=== PATIENT | female | born 1930 | race Caucasian/White ===

== ENCOUNTER 2018-02-19 17:49 | Inpatient (IN) ==
[2018-02-19 19:22] LABS: Basophils % 0.2 %; Eosinophils % 0.1 %; Hematocrit 53.2 % (35.3-44.9); Hemoglobin 17.9 g/dL (11.5-15.4); Immature Granulocytes % 0.6 % (0-4); Lymphocytes # 1.8 K/mcL (0.6-4.6); Lymphocytes % 8.4 %; Mean Corpuscular HGB Conc 33.6 g/dL (31.6-35.5); Mean Corpuscular Volume 89.3 fL (83.0-100.0); Mean Platelet Volume 10.3 fL (9.4-12.4); Monocytes # 2.4 K/mcL (0.0-1.3); Monocytes % 11.2 %; Neutrophils # 17.2 K/mcL (1.6-8.9); Platelet Count 360 K/mcL (140-400); Red Blood Count 5.96 M/mcL (3.82-4.97); Red Cell Distribution Width 13.2 % (11.5-14.5); Segmented Neutrophils % 79.5 %
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
[2018-02-19 19:38] LABS: Albumin/Globulin Ratio 1.3 (1.1-2.2); Bilirubin,Direct 0.4 mg/dL (0.0-0.2); Bilirubin,Indirect 0.6 mg/dL (0.0-1.2); Calcium 9.2 mg/dL (8.6-10.3); Globulin 3.1 g/dL (2.4-3.5); Potassium 3.5 mEq/L (3.5-5.1); Total Protein 7.1 g/dL (6.4-8.9)
[2018-02-19] MEDS ORDERED: Isovue-370 500 ML INFUS..BTL IV ONE (19:45)
[2018-02-19 20:11] LABS: Bilirubin,Urine Small (Negative); Blood,Urine Trace (Negative); Clarity,Urine Turbid (Clear); Color,Urine Dark Yellow (Yellow); Glucose,Urine (UA) Normal (Normal); Ketones,Urine Trace mg/dL (Negative); Leukocyte Esterase,Urine Large (Negative); Nitrite,Urine Negative (Negative); Protein,Urine 30 mg/dL (Neg-Trace); Specific Gravity,Urine 1.024 (1.010-1.025); Urobilinogen,Urine Normal (Normal)
[2018-02-19] MEDS ORDERED: 0.9 % Sodium Chloride 500 ML IVC ONE (20:19)
[2018-02-19] MEDS ORDERED: cefTRIAXone 1,000 MG in Water for inj. (sterile) 20 ML 10 ML IVP ONE (20:23)
--- NOTE | 2018-02-19 20:26 | Emergency Department Note ---
Disposition Clinical Impression: Large bowel obstruction, Small bowel obstruction, Colonic mass, UTI (urinary tract infection) Disposition: Admitted As Inpatient Condition: Good General Adult HPI - General Chief complaint: ED Abdominal Pain Stated complaint: "bladder infection" Time Seen by Provider: 02/19/18 18:48 Source: patient, family Limitations: altered mental status - History of Present Illness Pain Scale: 0 - Related Data Home Medications Medication Instructions Recorded Confirmed Alendronate Sodium 70 mg PO QWEEK 07/31/15 02/19/18 Amlodipine [Norvasc] 10 mg PO DAILY 07/31/15 02/19/18 Citalopram Hydrobromide [Celexa] 10 mg PO DAILY #0 07/31/15 02/19/18 Digoxin [Lanoxin] 0.125 mg PO DAILY 07/31/15 02/19/18 Losartan [Cozaar] 50 mg PO DAILY 07/31/15 02/19/18 Multivitamin [Multi-Day Vitamins] 1 tab PO DAILY 07/31/15 02/19/18 Simvastatin [Zocor] 40 mg PO HS 07/31/15 02/19/18 Aspirin 81 mg PO DAILY 02/19/18 02/19/18 Cholecalciferol (D-3) [Vitamin D] 5,000 unit PO DAILY 02/19/18 02/19/18 Donepezil [Aricept] 5 mg PO HS 02/19/18 02/19/18 Metoprolol XL (24 HR) Succ [Toprol 150 mg PO DAILY 02/19/18 02/19/18 XL] Previous Rx's Medication Instructions Recorded Warfarin [Coumadin] 2 mg PO 1800 #60 tablet 08/05/15 Allergies Allergy/AdvReac Type Severity Reaction Status Date / Time Warfarin [From Coumadin] Allergy See Verified 07/31/15 03:46 Comments Past Medical History - Past Medical History Medical history: Reports: coronary artery disease, CVA, myocardial infarction, TIA, other Surgical history: Reports: heart valve replacement, other Psychiatric history: Reports: no psych history POOL NURSE history: Reports: no POOL NURSE history - Social History Smoking Status: Never smoker Smokeless Tobacco Status: No Alcohol use: Reports: none Drug use: Reports: none Physical Exam - General Limitations: altered mental status General appearance: alert, in no apparent distress Course Vital Signs Temperature 97.8 F 02/19/18 17:54 Pulse Rate 73 04/26/18 17:54 Respiratory Rate 15 02/19/18 17:54 Blood Pressure 167/111 02/19/18 17:54 O2 Sat by Pulse Oximetry 96 02/19/18 17:54 Temperature 97.8 F 02/19/18 17:54 Pulse Rate 81 02/19/18 21:29 Respiratory Rate 18 02/19/18 21:29 Blood Pressure 159/90 02/19/18 21:29 O2 Sat by Pulse Oximetry 97 02/19/18 21:29 Oxygen Delivery Oxygen Delivery Nasal Cannula Medical Decision Making - Lab Data Result diagrams: 02/19/18 19:08 02/19/18 19:08 Lab Results 02/19/18 02/19/18 02/19/18 Range/Units 19:08 19:08 19:08 WBC 21.7 H (4.3-11.1) K/mcL RBC 5.96 H (3.82-4.97) M/mcL Hgb 17.9 H (11.5-15.4) g/dL Hct 53.2 H (35.3-44.9) % MCV 89.3 (83.0-100.0) fL MCH 30.0 (28.0-33.3) pg MCHC 33.6 (31.6-35.5) g/dL RDW 13.2 (11.5-14.5) % Plt Count 360 (140-400) K/mcL MPV 10.3 (9.4-12.4) fL Immature Gran % 0.6 (0-4) % Seg Neutrophils % 79.5 % Lymphocytes % 8.4 % Monocytes % 11.2 % Eosinophils % 0.1 % Basophils % 0.2 % Neutrophils # 17.2 H (1.6-8.9) K/mcL Lymphocytes # 1.8 (0.6-4.6) K/mcL Monocytes # 2.4 H (0.0-1.3) K/mcL Eosinophils # 0.0 (0.0-0.6) K/mcL Basophils # 0.0 (0.0-0.2) K/mcL PT (9.4-12.1) Seconds INR APTT (26.0-36.0) Seconds Sodium 136 (136-145) mEq/L Potassium 3.5 (3.5-5.1) mEq/L Chloride 99 (98-107) mEq/L Carbon Dioxide 25 (23-29) mEq/L BUN 43 H (8-23) mg/dL Creatinine 1.15 (0.60-1.20) mg/dL Est GFR ( Amer) 54 L (> 60) Est GFR (Non-Af Amer) 45 L (> 60) BUN/Creatinine Ratio 37 H (6-26) Glucose 210 H (70-105) mg/dL Calculated Osmolality 299 (280-300) Lactic Acid 2.3 H (0.5-2.2) mmol/L Calcium 9.2 (8.6-10.3) mg/dL Total Bilirubin 1.0 (0.3-1.0) mg/dL Direct Bilirubin 0.4 H (0.0-0.2) mg/dL Indirect Bilirubin 0.6 (0.0-1.2) mg/dL AST 54 H (13-39) Units/L ALT 35 (7-52) Units/L Alkaline Phosphatase 186 H (34-104) Units/L Serum Total Protein 7.1 (6.4-8.9) g/dL Albumin 4.0 (3.5-5.7) g/dL Globulin 3.1 (2.4-3.5) g/dL Albumin/Globulin Ratio 1.3 (1.1-2.2) Lipase 10 L (11-82) Units/L Urine Color (Yellow) Urine Clarity (Clear) Urine pH (5.0-8.0) pH Units Ur Specific [place] (1.010-1.025) Urine Protein (Neg-Trace) mg/dL Urine Glucose (UA) (Normal) mg/dL Urine Ketones (Negative) mg/dL Urine Blood (Negative) Urine Nitrite (Negative) Urine Bilirubin (Negative) Urine Urobilinogen (Normal) mg/dL Ur Leukocyte Esterase (Negative) Urine Microscopic RBC (0-3) per hpf Urine Microscopic WBC (0-3) per hpf Ur Squamous Epith Cells (None-Few) per lpf Amorphous Sediment (Few) Urine Bacteria (None-Few) per hpf Hyaline Casts (None-Few) per lpf Urine Yeast (None Seen) per hpf Ur Culture Indicated? (NO) 02/19/18 02/19/18 02/19/18 Range/Units 19:08 19:55 22:52 WBC (4.3-11.1) K/mcL RBC (3.82-4.97) M/mcL Hgb (11.5-15.4) g/dL Hct (35.3-44.9) % MCV (83.0-100.0) fL MCH (28.0-33.3) pg MCHC (31.6-35.5) g/dL RDW (11.5-14.5) % Plt Count (140-400) K/mcL MPV (9.4-12.4) fL Immature Gran % (0-4) % Seg Neutrophils % % Lymphocytes % % Monocytes % % Eosinophils % % Basophils % % Neutrophils # (1.6-8.9) K/mcL Lymphocytes # (0.6-4.6) K/mcL Monocytes # (0.0-1.3) K/mcL Eosinophils # (0.0-0.6) K/mcL Basophils # (0.0-0.2) K/mcL PT 50.3 H* (9.4-12.1) Seconds INR 4.5 H* APTT 50.6 H (26.0-36.0) Seconds Sodium (136-145) mEq/L Potassium (3.5-5.1) mEq/L Chloride (98-107) mEq/L Carbon Dioxide (23-29) mEq/L BUN (8-23) mg/dL Creatinine (0.60-1.20) mg/dL Est GFR ( Amer) (> 60) Est GFR (Non-Af Amer) (> 60) BUN/Creatinine Ratio (6-26) Glucose (70-105) mg/dL Calculated Osmolality (280-300) Lactic Acid 1.3 (0.5-2.2) mmol/L Calcium (8.6-10.3) mg/dL Total Bilirubin (0.3-1.0) mg/dL Direct Bilirubin (0.0-0.2) mg/dL Indirect Bilirubin (0.0-1.2) mg/dL AST (13-39) Units/L ALT (7-52) Units/L Alkaline Phosphatase (34-104) Units/L Serum Total Protein (6.4-8.9) g/dL Albumin (3.5-5.7) g/dL Globulin (2.4-3.5) g/dL Albumin/Globulin Ratio (1.1-2.2) Lipase (11-82) Units/L Urine Color Dark Yellow (Yellow) Urine Clarity Turbid A (Clear) Urine pH 5.0 (5.0-8.0) pH Units Ur Specific [place] 1.024 (1.010-1.025) Urine Protein 30 H (Neg-Trace) mg/dL Urine Glucose (UA) Normal (Normal) mg/dL Urine Ketones Trace H (Negative) mg/dL Urine Blood Trace H (Negative) Urine Nitrite Negative (Negative) Urine Bilirubin Small H (Negative) Urine Urobilinogen Normal (Normal) mg/dL Ur Leukocyte Esterase Large H (Negative) Urine Microscopic RBC Present (0-3) per hpf Urine Microscopic WBC Present (0-3) per hpf Ur Squamous Epith Cells Present (None-Few) per lpf Amorphous Sediment Present (Few) Urine Bacteria Present (None-Few) per hpf Hyaline Casts None Seen (None-Few) per lpf Urine Yeast Many H (None Seen) per hpf Ur Culture Indicated? YES A (NO) Attestation Statement - Attestation Attestation: I examined this patient and my medical decision-making was reviewed with the Resident Physician. I agree with the documented findings, disposition and treatment plan as described except to the extent set forth below. 87-year-old female since emergency department by her primary care physician because of abdominal distention. She was seen in the office yesterday and found to have a UTI and started on antibiotics. She returned today because of abdominal distention and was immediately sent to the ED for evaluation. Patient has advanced dementia with limited to medication. She denies any active subjective complaints but according to her she appears uncomfortable. His been noted vomiting. No dysuria. No fever. No cough or dyspnea Pleasant, elderly female. Answers yes no questions but inconsistently. He is membranes are dry. Neck supple. Chest clear to auscultation bilaterally. Cardiac exam regular, abdomen is distended. Bowel sounds are hypoactive. Abdomen appears to be diffusely tender. No CVA tenderness. Bedside ultrasound was done to make sure she did not have acute urinary retention and her bladder was relatively small in size. Some fluid-filled structures were noted on ultrasound Labs obtained and was found to have a white count 22,000 and urinalysis consistent with UTI. CT abdomen reveals large and small bowel obstruction likely secondary to a large colonic mass. Case discussed with Dr. Mendieta he will see her for surgical consultation and she is admitted to the medical service.
[2018-02-19 20:35] LABS: RBC,Urine Present per hpf (0-3)
[2018-02-19 20:36] LABS: Bacteria,Urine Present per hpf (None-Few); Hyaline Casts,Urine None Seen per lpf (None-Few); Squamous Epithelial Cell,Urine Present per lpf (None-Few); Yeast,Urine Many per hpf (None Seen)
[2018-02-19 20:37] LABS: WBC,Urine Present per hpf (0-3)
[2018-02-19 20:38] LABS: Amorphous Sediment,Urine Present (Few)
[2018-02-19] MEDS: 0.9 % Sodium Chloride 1,000 ML IVC SCH (20:49)
[2018-02-19] MEDS ORDERED: Ondansetron 4 MG/2 ML VIAL IVP ONE (21:36)
[2018-02-19 22:24] LABS: INR 4.5; Prothrombin Time 50.3 Seconds (9.4-12.1)
[2018-02-19 22:25] LABS: Activated Partial Thrombo Time 50.6 Seconds (26.0-36.0)
[2018-02-20] MEDS ORDERED: Naloxone 0.4 MG/ML INJ IVP PRN (01:18)
[2018-02-20] MEDS: Piperacillin/Tazobactam 3.375 GM in 0.9 % Sodium Chloride Mini Bag 100 ML IVPB SCH ×3 (01:33→19:31)
--- NOTE | 2018-02-20 01:59 | Internal Med History&Physical ---
Date of Encounter: 02/20/18 Time of Encounter: 01:00 Internal Medicine - H&P: HPI Chief complaint: Abdominal pain Admitted From: Home Plans for Post Hospital Care: Home History of present illness: Ms. Galeana is a 87 year old female present to ER for abdominal pain and distention. Past medical history is significant for A. fib, history of CVA with aphasia, history of mitral vital replacement with bio valve, hypertension. Patient is aphasia and no family member at bedside when I saw her. History is obtained from previous medical records and ER documentation. Patient has increased distention of the belly in last 2 days and was referred from PCP to the emergency room. In the emergency room, CT abdomen shows colon mass with obstruction. Surgical consult was called and recommend admission and antibiotic treatment as patient has leukocytosis. Patient denies fever. Cannot discuss CODE STATUS with this patient because she is aphasia. Will leave CODE STATUS unfilled until family member is available. Past Med Surg Social Fam HX - Past Medical History Medical history: coronary artery disease, CVA, myocardial infarction, TIA, other Psychiatric history: no psych history - Past Surgical History Surgical History: heart valve replacement, other - Social History Smoking Status: Never smoker Smokeless Tobacco Status: No Alcohol use: none Drug use: none - Family History Mother History Unknown: Yes Internal Medicine - H&P: Meds Alendronate Sodium 70 mg PO QWEEK 07/31/15 [History] Amlodipine [Norvasc] 10 mg PO DAILY 07/31/15 [History] Citalopram Hydrobromide [Celexa] 10 mg PO DAILY #0 07/31/15 [History] Digoxin [Lanoxin] 0.125 mg PO DAILY 07/31/15 [History] Losartan [Cozaar] 50 mg PO DAILY 07/31/15 [History] Multivitamin [Multi-Day Vitamins] 1 tab PO DAILY 07/31/15 [History] Simvastatin [Zocor] 40 mg PO HS 07/31/15 [History] Warfarin [Coumadin] 2 mg PO 1800 #60 tablet 08/05/15 [Rx] Aspirin 81 mg PO DAILY 02/19/18 [History] Cholecalciferol (D-3) [Vitamin D] 5,000 unit PO DAILY 02/19/18 [History] Donepezil [Aricept] 5 mg PO HS 04/26/18 [History] Metoprolol XL (24 HR) Succ [Toprol XL] 150 mg PO DAILY 02/19/18 [History] 3 Allergy/AdvReac Type Severity Reaction Status Date / Time Warfarin [From Coumadin] Allergy See Verified 07/31/15 03:46 Comments All Systems PM: A 10-system review of systems was performed and is negative for pertinent findings except as documented above in the HPI. - Constitutional Vitals: Temp Pulse Resp BP Pulse Ox 97.8 F 81 18 159/90 97 02/19/18 17:54 02/19/18 21:29 02/19/18 21:29 02/19/18 21:29 02/19/18 21:29 General appearance: Present: A&O X 3, no acute distress - Head Head exam: Present: atraumatic, normocephalic - Eye Eye exam: Present: PERRL, conjuntiva pink, sclera anicteric Pupils: Present: PERRL - Neck Neck exam general surgery: Present: supple, trachea midline. Absent: lymphadenopathy - Respiratory Respiratory exam: Present: CTAB. Absent: accessory muscle use, rales, rhonchi, wheezes - Cardiovascular Cardiovascular exam: Present: irregular rhythm, +S1, +S2. Absent: diastolic murmur, gallop, rubs, systolic murmur - GI/Abdominal GI/Abdominal exam: Present: distended, normal bowel sounds, soft, tenderness ( Mild to moderate tenderness in 4Q, no guarding or rebound), no peritoneal signs - Extremities Exam Extremities exam: Present: warm, radial pulses palpable and symmetrical. Absent : calf tenderness, cyanotic, pedal edema - Neurological Exam Neurological exam: Present: CN II-XII intact, oriented X3, no focal deficits. Absent: pronater drift, facial droop, speech deficit - Skin Skin exam: Present: dry, intact Internal Med - H&P Results - Labs CBC & Chem 7: 02/19/18 19:08 02/19/18 19:08 - Assessment and plan (1) Hypertension Current Visit: No Status: Acute Assessment and plan: Patient is nothing by mouth at this point. Will hold home hypertensive medication. Hydralazine IV as needed Qualifiers: Hypertension type: essential hypertension Qualified Code(s): I10 - Essential (primary) hypertension (2) DVT prophylaxis Current Visit: No Status: Acute Assessment and plan: Patient is on Coumadin at home. INR is supratherapeutic, no further anticoagulation placed. Closely follow-up PT/INR (3) Atrial fibrillation Current Visit: No Status: Acute Assessment and plan: Patient has A. fib. Heart rate is well controlled. Place patient on metoprolol IV as needed for tachycardia. Patient is on Coumadin, on hold the now because INR is supratherapeutic. Closely monitor INR level Qualifiers: Atrial fibrillation type: chronic Qualified Code(s): I48.2 - Chronic atrial fibrillation (4) CVA (cerebral vascular accident) Current Visit: No Status: Acute Assessment and plan: History of CVA with residual aphasia. Qualifiers: CVA mechanism: embolism Precerebral and cerebral artery: unspecified precerebral artery Qualified Code(s): I63.10 - Cerebral infarction due to embolism of unspecified precerebral artery (5) History of mitral valve replacement with bioprosthetic valve Current Visit: No Status: Acute Assessment and plan: Continue closely monitor patient (6) Large bowel obstruction Current Visit: Yes Status: Acute Assessment and plan: May due to colon cancer. - Keep patient nothing by mouth, IV fluid - NG tube with intermittent low pressure suction - Surgical consult was informed by ER doctor (7) Colonic mass Current Visit: Yes Status: Acute Assessment and plan: With obstruction at this point. May need further workup after acute obstruction resolved. (8) UTI (urinary tract infection) Current Visit: Yes Status: Acute Assessment and plan: Patient is on Zosyn. Follow-up urine culture. Qualifiers: Urinary tract infection type: site unspecified Hematuria presence: without hematuria Qualified Code(s): N39.0 - Urinary tract infection, site not specified - Time Spent With Patient Total time spent is greater than 50% in coordination of care (as documented) at patient's floor/unit and/or counseling patient: 40 minutes Greater than 35 minutes
[2018-02-20 05:17] LABS: Basophils % 0.2 %; Eosinophils % 0.1 %; Immature Granulocytes % 0.3 % (0-4); Lymphocytes # 1.8 K/mcL (0.6-4.6); Lymphocytes % 10.3 %; Mean Corpuscular HGB Conc 33.3 g/dL (31.6-35.5); Mean Corpuscular Hemoglobin 29.8 pg (28.0-33.3); Mean Corpuscular Volume 89.3 fL (83.0-100.0); Mean Platelet Volume 10.9 fL (9.4-12.4); Monocytes # 2.2 K/mcL (0.0-1.3); Monocytes % 12.5 %; Neutrophils # 13.4 K/mcL (1.6-8.9); Platelet Count 330 K/mcL (140-400); Red Blood Count 5.71 M/mcL (3.82-4.97); Red Cell Distribution Width 13.2 % (11.5-14.5); Segmented Neutrophils % 76.6 %
[2018-02-20 05:32] LABS: BUN/Creatinine Ratio 47 (6-26); Blood Urea Nitrogen 42 mg/dL (8-23); Calcium 8.5 mg/dL (8.6-10.3); Carbon Dioxide 25 mEq/L (23-29); Chloride 101 mEq/L (98-107); Glucose 152 mg/dL (70-105); Magnesium 1.9 mg/dL (1.6-2.6); Osmolality,Calculated 301 (280-300); Potassium 3.3 mEq/L (3.5-5.1); Sodium 139 mEq/L (136-145); eGFR For African Americans > 60 (> 60); eGFR For Non-African Americans > 60 (> 60)
[2018-02-20 05:40] LABS: INR 5.1; Prothrombin Time 56.7 Seconds (9.4-12.1)
[2018-02-20] MEDS ORDERED: Potassium Chloride 20 MEQ, Lidocaine 1% 2 ML in D5% in Water 250 ML IVPB ONE (09:31)
--- NOTE | 2018-02-20 12:43 | Event Note ---
Date of Encounter: 02/20/18 Time of Encounter: 11:35 General Surgery - Presented to bedside to examine patient and discuss surgical options. The patient is frail, with history of atrial fib fibrillation for which she is chronically anticoagulated, status post a stroke with severe aphasia; history of mitral valve replacement with a bilateral valve and hypertension. Unfortunately, Her had left the hospital and was unavailable during my encounter with the patient. I have briefly discussed the patient' situation with Dr Ontiveros. The patient is an extremely poor surgical candidate and her present level of anticoagulation preclude surgical intervention at this time. Current PT 56.7, INR 5.1. I have recommended administration 2 units fresh frozen plasma with or without vitamin K to reduce the risk of spontaneous bleed as well as begin preparation for surgical intervention should the patient and her wish to proceed. I will follow along with you and make further recommendations
[2018-02-20] MEDS ORDERED: 0.9 % Sodium Chloride 250 ML ONE ×2 (14:09→20:12)
[2018-02-20] MEDS: 0.9 % Sodium Chloride 1,000 ML IVC SCH ×2 (19:26→19:32)
--- NOTE | 2018-02-20 22:39 | Event Note ---
Date of Encounter: 02/20/18 Time of Encounter: 15:37 S: Patient had no acute events overnight. She is minimally verbal, and only says "yes or no." Unable to get much history from her. is in room today. We discussed case and prognosis. We also discussed code status at length given her critical condition and likely poor prognosis. He wants her to be full code. Patient does not look to be in any pain. She is in restraints right now due to trying to pull out NG tube earlier. We will try again to remove them and see how she does. I spoke with surgeon Dr. Bethea in person today, and he recommended continuing NG tube (if patient pulls out, no need to insert another one as blockage is in distal colon). He also recommended reversing INR with FFP. Patient is a poor surgical candidate. He will try to speak with today. O: Gen - Awake, alert, unable to assess orientation due to non-verbal state, no acute distress HEENT - NCAT, PERRLA, EOMI, hearing grossly intact, oropharynx benign, NG tube in place CV - RRR, normal S1 and S2, no M/R/G, no BLE edema Resp - Normal WOB, CTAB, no W/R/R GI - Soft, mild generalized abdominal distension and TTP, no masses, hypoactive bowel sounds, no HSP Skin - Warm, dry, no rashes/lesions/ulcers Psych - Normal mood and affect, no depression or anxiety A/P: 1) Large Bowel Obstruction - Surgery consulted; appreciate input. Continue NG tube with suction. Will use restraints only as last resort; if she pulls NG tube, no need to insert new one. Surgery will speak with about options. Discussed code status with , who wants full code for now. Continue NPO, IV zosyn, and IVF. Hold coumadin and give 2 units FFP to reverse INR in preparation for possible surgery. Repeat labwork in AM. 2) UTI - Continue IV zosyn. Follow up on urine culture. 3) Hypokalemia - Replete potassium. Recheck BMP in AM.
[2018-02-21] MEDS: Piperacillin/Tazobactam 3.375 GM in 0.9 % Sodium Chloride Mini Bag 100 ML IVPB SCH ×4 (01:17→18:22)
[2018-02-21] MEDS: 0.9 % Sodium Chloride 1,000 ML IVC SCH ×3 (01:18→23:00)
[2018-02-21 03:52] LABS: Basophils % 0.2 %; Eosinophils # 0.1 K/mcL (0.0-0.6); Eosinophils % 0.6 %; Hematocrit 45.9 % (35.3-44.9); Immature Granulocytes % 0.5 % (0-4); Lymphocytes # 1.8 K/mcL (0.6-4.6); Lymphocytes % 15.6 %; Mean Corpuscular HGB Conc 33.3 g/dL (31.6-35.5); Mean Platelet Volume 10.6 fL (9.4-12.4); Monocytes # 1.6 K/mcL (0.0-1.3); Monocytes % 13.9 %; Neutrophils # 8.1 K/mcL (1.6-8.9); Platelet Count 323 K/mcL (140-400); Red Cell Distribution Width 13.1 % (11.5-14.5); Segmented Neutrophils % 69.2 %
[2018-02-21 03:55] LABS: INR 3.6; Prothrombin Time 39.3 Seconds (9.4-12.1)
[2018-02-21 04:03] LABS: Hemoglobin 15.3 g/dL (11.5-15.4)
[2018-02-21 04:09] LABS: BUN/Creatinine Ratio 50 (6-26); Blood Urea Nitrogen 35 mg/dL (8-23); Calcium 8.4 mg/dL (8.6-10.3); Carbon Dioxide 31 mEq/L (23-29); Chloride 102 mEq/L (98-107); Glucose 144 mg/dL (70-105); Osmolality,Calculated 305 (280-300); Potassium 3.1 mEq/L (3.5-5.1); Sodium 142 mEq/L (136-145); eGFR For African Americans > 60 (> 60); eGFR For Non-African Americans > 60 (> 60)
[2018-02-21] MEDS ORDERED: Potassium Chloride 40 MEQ, Lidocaine 1% 2 ML in D5% in Water 500 ML IVPB ONE (06:03)
--- NOTE | 2018-02-21 12:19 | Internal Med Progress Note ---
Date of Encounter: 02/21/18 Time of Encounter: 12:16 - Assessment and plan (1) Large bowel obstruction Current Visit: Yes Status: Acute Assessment and plan: Likely due to colon cancer. Surgery consulted; appreciate input. Son and plan to be in tomorrow AM for family meeting with surgeon. Continue NPO and IVF. Patient pulled NG tube; per surgeon, no need to insert new one. (2) Colonic mass Current Visit: Yes Status: Acute Assessment and plan: With obstruction as per above. May need further workup after acute obstruction resolved. (3) UTI (urinary tract infection) Current Visit: Yes Status: Acute Assessment and plan: Continue IV Zosyn. Follow-up on final urine culture. Qualifiers: Urinary tract infection type: site unspecified Hematuria presence: without hematuria Qualified Code(s): N39.0 - Urinary tract infection, site not specified (4) Hypertension Current Visit: Yes Status: Chronic Assessment and plan: Patient is nothing by mouth at this point. Will hold home hypertensive medication. Continue hydralazine IV PRN. Qualifiers: Hypertension type: essential hypertension Qualified Code(s): I10 - Essential (primary) hypertension (5) Atrial fibrillation Current Visit: Yes Status: Chronic Assessment and plan: History of AFib. Heart rate is well-controlled at this time. Continue metoprolol IV as needed for tachycardia. Patient is on Coumadin, on hold the now because INR is supratherapeutic and possible plan for surgery. Recheck PT/ PTT/INR in AM. Qualifiers: Atrial fibrillation type: chronic Qualified Code(s): I48.2 - Chronic atrial fibrillation (6) CVA (cerebral vascular accident) Current Visit: No Status: Chronic Assessment and plan: History of CVA with residual aphasia. Qualifiers: CVA mechanism: embolism Precerebral and cerebral artery: unspecified precerebral artery Qualified Code(s): I63.10 - Cerebral infarction due to embolism of unspecified precerebral artery (7) History of mitral valve replacement with bioprosthetic valve Current Visit: Yes Status: Chronic Assessment and plan: Continue to monitor. (8) Hypokalemia Current Visit: Yes Status: Acute Assessment and plan: Replete potassium. Recheck BMP in AM. (9) DVT prophylaxis Current Visit: Yes Status: Acute Assessment and plan: Patient is on Coumadin at home. INR is supratherapeutic, will hold coumadin. Given 2 units FFP yesterday. INR down today. Consulted with surgeon Dr. Mendieta, who states will hold further FFP for now until family makes decision on surgery tomorrow. Obtain PT/PTT/INR in AM. - Time Spent With Patient Total time spent is greater than 50% in coordination of care (as documented) at patient's floor/unit and/or counseling patient: - Subjective Interval history: Patient had no acute events overnight. She states that she is doing fine. She does not appear to be in any distress. She is minimally verbal. is in room today and we discussed family meeting tomorrow AM with the surgeon. I spoke with son on phone this AM. He is flying in from [place] today. He will be at meeting tomorrow AM with surgeon. He also asked that all decisions be run through him and his brother prior to "stressing out their father." I spoke with surgeon Dr. Mendieta this AM, and he suggested leaving NG tube out after she pulled it out yesterday. Prognosis is poor. - Constitutional Vitals: Temp Pulse Resp BP Pulse Ox 98.3 F 87 15 163/80 92 02/21/18 11:41 02/21/18 11:41 02/21/18 11:41 02/21/18 11:41 02/21/18 11:41 General appearance: Present: cooperative, pleasant, no acute distress Exam: Minimally verbal - Respiratory Respiratory exam: Present: CTAB. Absent: accessory muscle use, rales, rhonchi, wheezes Additional comments: Normal WOB - Cardiovascular Cardiovascular exam: Present: RRR, +S1, +S2. Absent: diastolic murmur, gallop, rubs, systolic murmur Additional comments: No BLE edema - GI/Abdominal GI/Abdominal exam: Present: soft. Absent: distended, hepatomegaly, mass, splenomegaly, tenderness Additional comments: Hypoactive bowel sounds - Psychiatric Psychiatric exam: Present: normal affect, normal mood. Absent: agitated, anxious, depressed - Skin Skin exam: Present: dry, intact, warm. Absent: cyanosis, rash Internal Medicine: Result - Labs CBC & Chem 7: 02/21/18 03:19 02/21/18 03:19 Labs: Short CBC 02/21/18 Range/Units 03:19 WBC 11.6 H (4.3-11.1) K/mcL Hgb 15.3 D (11.5-15.4) g/dL Hct 45.9 H (35.3-44.9) % Plt Count 323 (140-400) K/mcL Neutrophils # 8.1 (1.6-8.9) K/mcL BMP 02/21/18 03:19 Sodium 142 Potassium 3.1 L Chloride 102 Carbon Dioxide 31 H BUN 35 H Creatinine 0.70 Glucose 144 H Calcium 8.4 L - ABG Interpretation ABG results: PT/INR, D-dimer PT 39.3 Seconds (9.4-12.1) H 02/21/18 03:19 - Impressions Impressions [facility] X-Ray 02/20/18 08:56 IMPRESSION: Tip of the nasogastric tube is within the stomach with the side port projecting over the gastroesophageal junction. Consider advancement. D/ / 02/20/2018 09:30:56 Jeronimo Lakhani MD / [facility] Interpreting Provider: Jeronimo Lakhani MD X-Ray 02/20/18 13:03 IMPRESSION: Enteric tube does not appear appreciably changed in position from exam earlier today with side port still projecting at the level of the gastroesophageal junction and tip likely in the proximal body of the stomach. Suggest advancement by 5 cm. D/ / 02/20/2018 13:40:08 Lavell Friedman MD / [facility] Interpreting Provider: Lavell Friedman MD - [facility] Reasons for not Prescribing Prophylaxis: Medical contraindication ( Supratherapeutic INR; plan for surgery) Consult Discharge Plan - Plan Referrals: Juan Fernandez MD [Primary Care Provider] -
[2018-02-21] MEDS: *HR* Metoprolol 5 MG/5 ML VIAL IVP PRN ×2 (14:51→21:41)
[2018-02-21] MEDS: *HR* FentaNYL (PF) 100 MCG/2 ML VIAL IVP PRN ×2 (18:18→23:19)
[2018-02-22] MEDS: Piperacillin/Tazobactam 3.375 GM in 0.9 % Sodium Chloride Mini Bag 100 ML IVPB SCH ×3 (03:03→20:49)
[2018-02-22 03:39] LABS: Basophils % 0.3 %; Eosinophils # 0.1 K/mcL (0.0-0.6); Eosinophils % 0.6 %; Hematocrit 46.7 % (35.3-44.9); Immature Granulocytes % 0.8 % (0-4); Lymphocytes # 1.9 K/mcL (0.6-4.6); Lymphocytes % 15.9 %; Mean Corpuscular HGB Conc 32.1 g/dL (31.6-35.5); Mean Corpuscular Hemoglobin 29.4 pg (28.0-33.3); Mean Corpuscular Volume 91.6 fL (83.0-100.0); Mean Platelet Volume 10.2 fL (9.4-12.4); Monocytes # 1.5 K/mcL (0.0-1.3); Monocytes % 12.4 %; Neutrophils # 8.6 K/mcL (1.6-8.9); Platelet Count 321 K/mcL (140-400); Red Cell Distribution Width 13.2 % (11.5-14.5)
[2018-02-22 03:44] LABS: INR 3.3; Prothrombin Time 36.6 Seconds (9.4-12.1)
[2018-02-22 04:26] LABS: BUN/Creatinine Ratio 39 (6-26); Blood Urea Nitrogen 23 mg/dL (8-23); Calcium 8.5 mg/dL (8.6-10.3); Carbon Dioxide 30 mEq/L (23-29); Chloride 109 mEq/L (98-107); Glucose 140 mg/dL (70-105); Osmolality,Calculated 306 (280-300); Potassium 3.6 mEq/L (3.5-5.1); Sodium 145 mEq/L (136-145); eGFR For African Americans > 60 (> 60); eGFR For Non-African Americans > 60 (> 60)
[2018-02-22] MEDS: 0.9 % Sodium Chloride 1,000 ML IVC SCH (06:55)
--- NOTE | 2018-02-22 10:47 | Internal Med Progress Note ---
Date of Encounter: 02/22/18 Time of Encounter: 10:40 - Assessment and plan (1) Large bowel obstruction Current Visit: Yes Status: Acute Assessment and plan: Likely due to colon cancer. Surgery consulted; appreciate input. Patient and family agree to proceed with surgery; will plan for tomorrow. Reverse INR as per below. Insert mondragon catheter. Continue NPO and IVF. (2) Colonic mass Current Visit: Yes Status: Acute Assessment and plan: With obstruction as per above. Plan for surgery tomorrow. (3) UTI (urinary tract infection) Current Visit: Yes Status: Acute Assessment and plan: Continue IV Zosyn. Follow-up on final urine culture. Qualifiers: Urinary tract infection type: site unspecified Hematuria presence: without hematuria Qualified Code(s): N39.0 - Urinary tract infection, site not specified (4) Hypertension Current Visit: Yes Status: Chronic Assessment and plan: Patient is nothing by mouth at this point. Will hold home hypertensive medication. Continue hydralazine IV PRN. Qualifiers: Hypertension type: essential hypertension Qualified Code(s): I10 - Essential (primary) hypertension (5) Atrial fibrillation Current Visit: Yes Status: Chronic Assessment and plan: History of AFib. Heart rate is well-controlled at this time. Continue metoprolol IV as needed for tachycardia. Patient is on Coumadin, on hold the now because INR is supratherapeutic and possible plan for surgery. Give 4 units FFP fast in preparation for surgery tomorrow; will give lasix 20 mg IV TID in between doses (3 doses total). Recheck PT/PTT/INR in AM. Qualifiers: Atrial fibrillation type: chronic Qualified Code(s): I48.2 - Chronic atrial fibrillation (6) CVA (cerebral vascular accident) Current Visit: Yes Status: Chronic Assessment and plan: History of CVA with residual aphasia. Qualifiers: CVA mechanism: embolism Precerebral and cerebral artery: unspecified precerebral artery Qualified Code(s): I63.10 - Cerebral infarction due to embolism of unspecified precerebral artery (7) History of mitral valve replacement with bioprosthetic valve Current Visit: Yes Status: Chronic Assessment and plan: Continue to monitor. (8) Hypokalemia Current Visit: Yes Status: Resolved Assessment and plan: Resolved. Recheck BMP in AM. (9) DVT prophylaxis Current Visit: Yes Status: Acute Assessment and plan: Patient is on Coumadin at home. INR is supratherapeutic, will hold coumadin. Given 2 units FFP 2 days ago. INR down today. Give 4 more units of FFP (with lasix in between) in preparation for surgery tomorrow. Obtain PT/PTT/INR in AM. - Time Spent With Patient Total time spent is greater than 50% in coordination of care (as documented) at patient's floor/unit and/or counseling patient: Greater than 35 minutes - Subjective Interval history: Patient had no acute events overnight. She states that she is doing fine. She does not appear to be in any distress. She is minimally verbal. and son are in room today Surgeon Dr. Bethea, myself, patient, , and son participated in family meeting today in regards to risks/benefits of surgery. Family and patient agree to proceed with surgery. Patient denies chest pain, SOB, abdominal pain, nausea, or vomiting. - Constitutional Vitals: Temp Pulse Resp BP Pulse Ox 97.6 F 101 15 154/81 93 02/22/18 09:57 02/22/18 09:57 02/22/18 09:57 02/22/18 09:57 02/22/18 09:57 General appearance: Present: cooperative, pleasant, no acute distress - Respiratory Respiratory exam: Present: CTAB. Absent: accessory muscle use, rales, rhonchi, wheezes Additional comments: Normal WOB - Cardiovascular Cardiovascular exam: Present: RRR, +S1, +S2. Absent: diastolic murmur, gallop, rubs, systolic murmur Additional comments: No BLE edema - GI/Abdominal GI/Abdominal exam: Present: distended, soft. Absent: hepatomegaly, mass, splenomegaly, tenderness Additional comments: Hypoactive bowel sounds - Psychiatric Psychiatric exam: Present: normal affect, normal mood. Absent: agitated, anxious, depressed - Skin Skin exam: Present: dry, intact, warm. Absent: cyanosis, rash Internal Medicine: Result - Labs CBC & Chem 7: 02/22/18 03:20 02/22/18 03:20 Labs: Short CBC 02/22/18 Range/Units 03:20 WBC 12.2 H (4.3-11.1) K/mcL Hgb 15.0 (11.5-15.4) g/dL Hct 46.7 H (35.3-44.9) % Plt Count 321 (140-400) K/mcL Neutrophils # 8.6 (1.6-8.9) K/mcL BMP 02/22/18 03:20 Sodium 145 Potassium 3.6 Chloride 109 H Carbon Dioxide 30 H BUN 23 Creatinine 0.59 L Glucose 140 H Calcium 8.5 L - ABG Interpretation ABG results: PT/INR, D-dimer PT 36.6 Seconds (9.4-12.1) H 02/22/18 03:20 - VTE Reasons for not Prescribing Prophylaxis: Medical contraindication ( Supratherapeutic INR; plan for surgery) Consult Discharge Plan - Plan Referrals: Juan Fernandez MD [Primary Care Provider] -
[2018-02-22] MEDS ORDERED: 0.9 % Sodium Chloride 250 ML ONE ×3 (11:28→16:32)
[2018-02-22] MEDS: *HR* Metoprolol 5 MG/5 ML VIAL IVP PRN ×2 (11:54→20:57)
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
[2018-02-22] MEDS: Furosemide 20 MG/2 ML VIAL IVP SCH ×3 (14:00→18:35)
[2018-02-22] MEDS: *HR* FentaNYL (PF) 100 MCG/2 ML VIAL IVP PRN ×2 (16:36→20:57)
[2018-02-23 03:04] LABS: Basophils % 0.2 %; Eosinophils # 0.1 K/mcL (0.0-0.6); Eosinophils % 0.8 %; Hematocrit 44.5 % (35.3-44.9); Hemoglobin 14.7 g/dL (11.5-15.4); Immature Granulocytes % 0.8 % (0-4); Immature Platelets 2.2 % (1.1-6.1); Lymphocytes # 1.3 K/mcL (0.6-4.6); Mean Corpuscular Hemoglobin 29.9 pg (28.0-33.3); Mean Corpuscular Volume 90.4 fL (83.0-100.0); Mean Platelet Volume 9.9 fL (9.4-12.4); Monocytes # 1.5 K/mcL (0.0-1.3); Monocytes % 11.2 %; Neutrophils # 10.2 K/mcL (1.6-8.9); Platelet Count 324 K/mcL (140-400); Red Blood Count 4.92 M/mcL (3.82-4.97)
[2018-02-23 03:11] LABS: INR 1.9; Prothrombin Time 21.1 Seconds (9.4-12.1)
[2018-02-23 03:13] LABS: Activated Partial Thrombo Time 35.9 Seconds (26.0-36.0)
[2018-02-23 03:21] LABS: BUN/Creatinine Ratio 28 (6-26); Blood Urea Nitrogen 16 mg/dL (8-23); Calcium 8.8 mg/dL (8.6-10.3); Carbon Dioxide 33 mEq/L (23-29); Chloride 103 mEq/L (98-107); Glucose 134 mg/dL (70-105); Osmolality,Calculated 307 (280-300); Sodium 147 mEq/L (136-145); eGFR For African Americans > 60 (> 60); eGFR For Non-African Americans > 60 (> 60)
[2018-02-23] MEDS ORDERED: Potassium Chloride 40 MEQ, Lidocaine 1% 2 ML in D5% in Water 500 ML IVPB ONE (03:40)
[2018-02-23] MEDS: Piperacillin/Tazobactam 3.375 GM in 0.9 % Sodium Chloride Mini Bag 100 ML IVPB SCH ×3 (04:23→22:12)
[2018-02-23] MEDS ORDERED: 0.9 % Sodium Chloride 250 ML ONE ×2 (12:20→14:17)
--- NOTE | 2018-02-23 15:40 | Anesthesia Evaluation PreOp ---
Date of Encounter: 02/23/18 Time of Encounter: 16:26 - Past History Planned Operation: Colectomy Cardiac History: HTN, Arrhythmia (AFib, on coumadin at admission, Has received 8 FFP since admission), Cardiac Surgery (Bioprothetic MVR 15 yrs ago) Pulmonary History: Denies Any Significant HX WEB COORDINATOR History: CVA (Several with expressive aphasia) Other Medical History: Renal (RIP,), Other (SBO and LBO secondary to hepatic flexure mass, Hiatal hernia by CT) Anesthesia History: No Prior Anesthetic Complications, Past Anesthesia (Multiple , including several abdominal) Alcohol Use: none Drug use: none Medications and Allergies Alendronate Sodium 70 mg PO QWEEK 07/31/15 [History] Amlodipine [Norvasc] 10 mg PO DAILY 07/31/15 [History] Citalopram Hydrobromide [Celexa] 10 mg PO DAILY #0 07/31/15 [History] Digoxin [Lanoxin] 0.125 mg PO DAILY 07/31/15 [History] Losartan [Cozaar] 50 mg PO DAILY 07/31/15 [History] Multivitamin [Multi-Day Vitamins] 1 tab PO DAILY 07/31/15 [History] Simvastatin [Zocor] 40 mg PO HS 07/31/15 [History] Warfarin [Coumadin] 2 mg PO 1800 #60 tablet 08/05/15 [Rx] Aspirin 81 mg PO DAILY 02/19/18 [History] Cholecalciferol (D-3) [Vitamin D] 5,000 unit PO DAILY 02/19/18 [History] Donepezil [Aricept] 5 mg PO HS 02/19/18 [History] Metoprolol XL (24 HR) Succ [Toprol XL] 150 mg PO DAILY 02/19/18 [History] 3 Allergy/AdvReac Type Severity Reaction Status Date / Time No Known Allergies Allergy Verified 02/20/18 11:01 - Meds/Allergy Pre-op Review Medications Reviewed: Yes Allergies Reviewed: Yes Beta Blockers on Current Med List: No Anesthesia Results - Labs 02/23/18 02:45 02/23/18 02:45 Laboratory Tests 02/19/18 02/19/18 02/23/18 19:08 19:08 02:45 PT 50.3 H* 21.1 H INR 4.5 H* 1.9 APTT 35.9 Calcium Total Bilirubin 1.0 AST 54 H ALT 35 Alkaline Phosphatase 186 H Serum Total Protein 7.1 Albumin 4.0 Carcinoembryonic Ag 02/23/18 02/23/18 02:45 02:45 PT INR APTT Calcium 8.8 Total Bilirubin AST ALT Alkaline Phosphatase Serum Total Protein Albumin Carcinoembryonic Ag 1.7 - Imaging Additional studies: TTE 07/2015: Normal LVSF, dilated left atrium Anesthesia Exam Vital Signs/O2 Sat/Glucose, Most Recent Temp Pulse Resp BP Pulse Ox 97.6 F 97 16 163/80 95 02/23/18 15:25 02/23/18 15:25 02/23/18 15:25 02/23/18 15:25 02/23/18 15:25 Blood Glucose* 154 NPO (# of Hours): >8 - HEENT Mallampati: II Teeth: Normal Oral Opening: Greater than 3 - WEB COORDINATOR LOC: Oriented (Awake and alert. Understands verbal communication, but unable to respond, except "Yes".) - Cardiac Rhythm: Irregular - Pulmonary Breath Sounds: bilateral Clear Anesthesia Assess/Plan ASA Score: 4 Modified [place] Scale for Level of Consciousness: Cooperative, oriented, and tranquil Anesthetic Plan: General, Regional (TAP block for post operative pain) Autologous Blood: Yes (Possible) Monitoring Plan: Standard Monitors, A-Line (Possible) Anes Supervising Prov Stmt: Patient informed and consented. Risks, benefits, and alternatives discussed. Patient wishes to proceed.
[2018-02-23] MEDS ORDERED: *HR* Etomidate 40 MG/20 ML VIAL IVP ONE (16:41)
[2018-02-23] MEDS ORDERED: *HR* Rocuronium Bromide 50 MG/5 ML VIAL ONE (16:41)
[2018-02-23] MEDS ORDERED: Lidocaine -MPF 2% 2 ML VIAL ONE (16:41)
[2018-02-23] MEDS ORDERED: Ondansetron 4 MG/2 ML VIAL ONE (16:41)
[2018-02-23] MEDS ORDERED: *HR* FentaNYL (PF) 100 MCG/2 ML VIAL ONE (16:41)
[2018-02-23] MEDS ORDERED: *HR* Metoprolol 5 MG/5 ML VIAL IVP ONE (18:08)
[2018-02-23] MEDS ORDERED: *HR* HYDROmorphone (PF) 1 MG/ML SYRINGE IVP PRN (18:11)
[2018-02-23] MEDS ORDERED: Albuterol 2.5 MG/3 ML NEBULIZER IH PRN (18:11)
[2018-02-23] MEDS ORDERED: Ondansetron 4 MG/2 ML VIAL IVP PRN ×2 (18:11→23:57)
--- NOTE | 2018-02-23 19:11 | Internal Med Progress Note ---
Date of Encounter: 02/23/18 Time of Encounter: 10:20 - Assessment and plan (1) Large bowel obstruction Current Visit: Yes Status: Acute Assessment and plan: Likely due to colon cancer. Surgery consulted; appreciate input. Patient and family agree to proceed with surgery; plan for OR today. Continue NPO and IVF. (2) Colonic mass Current Visit: Yes Status: Acute Assessment and plan: With obstruction as per above. Plan for surgery today. (3) UTI (urinary tract infection) Current Visit: Yes Status: Acute Assessment and plan: Continue IV Zosyn. Follow-up on final urine culture. Qualifiers: Urinary tract infection type: site unspecified Hematuria presence: without hematuria Qualified Code(s): N39.0 - Urinary tract infection, site not specified (4) Hypertension Current Visit: Yes Status: Chronic Assessment and plan: Patient is nothing by mouth at this point. Will hold home hypertensive medication. Continue hydralazine IV PRN. Qualifiers: Hypertension type: essential hypertension Qualified Code(s): I10 - Essential (primary) hypertension (5) Atrial fibrillation Current Visit: Yes Status: Chronic Assessment and plan: History of AFib. Heart rate is well-controlled at this time. Continue metoprolol IV as needed for tachycardia. Qualifiers: Atrial fibrillation type: chronic Qualified Code(s): I48.2 - Chronic atrial fibrillation (6) CVA (cerebral vascular accident) Current Visit: Yes Status: Chronic Assessment and plan: History of CVA with residual aphasia. Qualifiers: CVA mechanism: embolism Precerebral and cerebral artery: unspecified precerebral artery Qualified Code(s): I63.10 - Cerebral infarction due to embolism of unspecified precerebral artery (7) History of mitral valve replacement with bioprosthetic valve Current Visit: Yes Status: Chronic Assessment and plan: Continue to monitor. (8) Hypokalemia Current Visit: Yes Status: Acute Assessment and plan: Replete potassium. Recheck BMP in AM. (9) DVT prophylaxis Current Visit: Yes Status: Acute Assessment and plan: Patient is on Coumadin at home. Hold anticoagulation due to surgery today. - Time Spent With Patient Total time spent is greater than 50% in coordination of care (as documented) at patient's floor/unit and/or counseling patient: less than 15 minutes - Subjective Interval history: Patient had no acute events overnight. She states that she is doing fine. She does not appear to be in any distress. She is minimally verbal. and son are in room today. Plan for surgery today. Patient denies chest pain, SOB , abdominal pain, nausea, or vomiting. - Constitutional Vitals: Temp Pulse Resp BP Pulse Ox 97.6 F 97 16 163/80 95 02/23/18 15:25 02/23/18 15:25 02/23/18 15:25 02/23/18 15:25 02/23/18 15:25 General appearance: Present: cooperative, pleasant, no acute distress, answers questions appropriately - Respiratory Respiratory exam: Present: CTAB. Absent: accessory muscle use, rales, rhonchi, wheezes Additional comments: Normal WOB - Cardiovascular Cardiovascular exam: Present: RRR, +S1, +S2. Absent: diastolic murmur, gallop, rubs, systolic murmur Additional comments: No BLE edema - GI/Abdominal GI/Abdominal exam: Present: distended, soft. Absent: hepatomegaly, mass, splenomegaly, tenderness Additional comments: Hypoactive bowel sounds - Psychiatric Psychiatric exam: Present: normal affect, normal mood. Absent: agitated, anxious, depressed - Skin Skin exam: Present: dry, intact, warm. Absent: cyanosis, rash Internal Medicine: Result - Labs CBC & Chem 7: 02/23/18 02:45 02/23/18 02:45 Labs: Short CBC 02/23/18 Range/Units 02:45 WBC 13.3 H (4.3-11.1) K/mcL Hgb 14.7 (11.5-15.4) g/dL Hct 44.5 (35.3-44.9) % Plt Count 324 (140-400) K/mcL Neutrophils # 10.2 H (1.6-8.9) K/mcL BMP 02/23/18 02:45 Sodium 147 H Potassium 3.0 L Chloride 103 Carbon Dioxide 33 H BUN 16 Creatinine 0.58 L Glucose 134 H Calcium 8.8 - ABG Interpretation ABG results: PT/INR, D-dimer PT 21.1 Seconds (9.4-12.1) H 02/23/18 02:45 - VTE Reasons for not Prescribing Prophylaxis: Medical contraindication (Plan for surgery today) Consult Discharge Plan - Plan Referrals: Juan Fernandez MD [Primary Care Provider] -
[2018-02-23] MEDS ORDERED: Neostigmine Methylsulfate 3 MG/3 ML SYRINGE ONE (19:30)
[2018-02-23] MEDS ORDERED: *HR* HYDROmorphone 20 MG/20 ML PCA IVC PRN ×2 (20:22→23:57)
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
--- NOTE | 2018-02-23 21:50 | Anesthesia Evaluation Post Op ---
Date of Encounter: 02/23/18 Time of Encounter: 21:49 - Vital Signs Vital Signs: Vital Signs/O2 Sat, Most Current Temp Pulse Resp BP Pulse Ox 97.8 F 93 24 160/92 100 02/23/18 20:09 02/23/18 21:00 02/23/18 21:00 02/23/18 21:00 02/23/18 21:00 - Lungs Lungs: Clear Ascult./Percussion - Airway Airway: Non-obstructed - Cardiovascular Regular Rate - Mental Status Mental Status: Alert & Oriented, Answers Appropriately, Baseline Status - Pain Pain Scale: 0 Pain Scale used: Numeric (1 - 10) - Nausea Vomiting Nausea Vomiting: Not Present - Hydration Hydration: NPO, Pollock catheter - Discharge PostOp Status: Transfer Patient to floor (Pt to ICU post-op)
[2018-02-23] MEDS ORDERED: Naloxone 0.4 MG/ML INJ IVP PRN (23:57)
[2018-02-23] MEDS ORDERED: Ringers Solution, Lactated 1,000 ML IVC SCH (23:57)
[2018-02-24] MEDS ORDERED: Albuterol 2.5 MG/3 ML NEBULIZER ONE (00:38)
[2018-02-24] MEDS: Albuterol 2.5 MG/3 ML NEBULIZER IH SCH ×5 (00:40→22:42)
[2018-02-24] MEDS: *HR* Metoprolol 5 MG/5 ML VIAL IVP SCH ×4 (01:39→20:58)
[2018-02-24 04:54] LABS: Basophils # 0.1 K/mcL (0.0-0.2); Basophils % 0.3 %; Eosinophils % 0.1 %; Hematocrit 42.8 % (35.3-44.9); Hemoglobin 14.2 g/dL (11.5-15.4); Immature Granulocytes % 0.9 % (0-4); Lymphocytes # 1.5 K/mcL (0.6-4.6); Lymphocytes % 9.1 %; Mean Corpuscular HGB Conc 33.2 g/dL (31.6-35.5); Mean Corpuscular Hemoglobin 30.6 pg (28.0-33.3); Mean Corpuscular Volume 92.2 fL (83.0-100.0); Mean Platelet Volume 10.2 fL (9.4-12.4); Monocytes # 1.3 K/mcL (0.0-1.3); Monocytes % 7.6 %; Neutrophils # 13.8 K/mcL (1.6-8.9); Platelet Count 337 K/mcL (140-400); Red Blood Count 4.64 M/mcL (3.82-4.97); Red Cell Distribution Width 13.3 % (11.5-14.5)
[2018-02-24 04:59] LABS: INR 2.8; Prothrombin Time 30.7 Seconds (9.4-12.1)
[2018-02-24 05:11] LABS: BUN/Creatinine Ratio 31 (6-26); Blood Urea Nitrogen 20 mg/dL (8-23); Calcium 8.4 mg/dL (8.6-10.3); Carbon Dioxide 27 mEq/L (23-29); Chloride 107 mEq/L (98-107); Glucose 158 mg/dL (70-105); Osmolality,Calculated 302 (280-300); Potassium 3.6 mEq/L (3.5-5.1); Sodium 143 mEq/L (136-145); eGFR For African Americans > 60 (> 60); eGFR For Non-African Americans > 60 (> 60)
[2018-02-24] MEDS ORDERED: Piperacillin/Tazobactam 3.375 GM in 0.9 % Sodium Chloride Mini Bag 100 ML IVPB SCH (06:00)
[2018-02-24] MEDS ORDERED: Ringers Solution, Lactated 1,000 ML IVC ONE (09:19)
[2018-02-24] MEDS ORDERED: D5% in 0.45% NACL 1,000 ML IVC SCH (09:30)
--- NOTE | 2018-02-24 10:05 | General Surgery Progress Note ---
Date of Encounter: 02/24/18 Time of Encounter: 09:10 Subjective Narrative: General Surgery - POD #1 patient awake and alert; incisional pain appears controlled. patient has remained afeb; heart rate variable/irregular 188-128; RR 18-19; BP 118/92. SPO2 oln 2 L/min NC 99% Lungs: clear to auscultation; pain evident end inspiration Cardiac: irregular, irregular rate Abd: soft, quiet, minimal tenderness. Dressing removed - incision appears intact. Urine output: 175 mL so far today - marginal Labs: WBC 16.8, neutrophils 13.8 - likely response to surgery; Hgb 14.2 Hct 42.8 ; platelets 337,000 PT 30.7/INR 2.8 no evidence post op hemorrhage Electrolytes acceptable, potassium corrected 3.6; BUN 20, Cr 0.64 Impression/Plan: POD #1 s/p explor celiotomy, DAVONTE with right colectomy to remove an obvious obstructing neoplasm ascending colon acceptable post op status. Transfer to general bed. Telemetry per Hospitalist Service / medical management post op oliguria - likely due to "3rd spacing". Heart rate increased as well. Fluid bolus now; monitor I&O history CVA/aphasia - appears stable Atrial fibrillation - continue to hold anticoagulation. 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 - stable Objective Vital Signs - Last 8 Hours Temp Pulse Resp BP Pulse Ox 02/24/18 09:37 128 18 118/92 99 02/24/18 08:30 122 19 132/77 98 02/24/18 07:42 97.6 F 02/24/18 07:30 118 19 123/90 98 02/24/18 06:00 114 13 128/82 98 02/24/18 05:00 131 16 117/77 98 02/24/18 04:05 12 97 02/24/18 04:00 111 14 107/67 97 02/24/18 03:00 111 12 143/78 99 02/24/18 02:00 87 12 143/80 97 Intake and Output 02/23/18 02/24/18 02/24/18 23:59 07:59 15:59 Intake Total 874 / 874 100 / 100 Output Total 100 / 100 175 / 175 Balance 774 / 774 -75 / -75 Intake: IV Fluids 874 / 874 100 / 100 0.45% Sodium Chloride 1000 Ml 874 / 874 1000 Ml 1,000 ML @ 75 mls/hr IVC .[id number] [facility] Rx#:[id number] Zosyn 3.375 GM In 0.9 % Sodium 100 / 100 Chloride (Mini-Bag +) 100 ML @ 25 mls/hr IVPB Q8H [facility] Rx#: [id number] Oral 0 / 0 Output: Estimated Blood Loss 100 / 100 Catheter 175 / 175 Other: Weight 67.8 kg Blood Glucose* 120 Patient Weight 02/24/18 23:59 Weight 67.8 kg - Labs 02/24/18 04:00 02/24/18 04:00 Diabetes panel 02/24/18 Range/Units 04:00 Sodium 143 (136-145) mEq/L Potassium 3.6 (3.5-5.1) mEq/L Chloride 107 (98-107) mEq/L Carbon Dioxide 27 (23-29) mEq/L BUN 20 (8-23) mg/dL Creatinine 0.64 (0.60-1.20) mg/dL Glucose 158 H (70-105) mg/dL Calcium 8.4 L (8.6-10.3) mg/dL Calcium panel 02/24/18 Range/Units 04:00 Calcium 8.4 L (8.6-10.3) mg/dL Pituitary panel 02/24/18 Range/Units 04:00 Sodium 143 (136-145) mEq/L Potassium 3.6 (3.5-5.1) mEq/L Chloride 107 (98-107) mEq/L Carbon Dioxide 27 (23-29) mEq/L BUN 20 (8-23) mg/dL Creatinine 0.64 (0.60-1.20) mg/dL Glucose 158 H (70-105) mg/dL Calcium 8.4 L (8.6-10.3) mg/dL Adrenal panel 02/24/18 Range/Units 04:00 Sodium 143 (136-145) mEq/L Potassium 3.6 (3.5-5.1) mEq/L Chloride 107 (98-107) mEq/L Carbon Dioxide 27 (23-29) mEq/L BUN 20 (8-23) mg/dL Creatinine 0.64 (0.60-1.20) mg/dL Glucose 158 H (70-105) mg/dL Calcium 8.4 L (8.6-10.3) mg/dL - VTE Reasons for not Prescribing Prophylaxis: Medical contraindication (Plan for surgery today) Documentation of Mechanical Device: Intermittent pneumatic compression device Consult Discharge Plan - Plan Referrals: Juan Fernandez MD [Primary Care Provider] -
[2018-02-24] MEDS ORDERED: Pantoprazole 40 MG VIAL IVP SCH (11:30)
[2018-02-24] MEDS ORDERED: Naloxone 0.4 MG/ML INJ IVP PRN (11:52)
[2018-02-24] MEDS ORDERED: *HR* HYDROmorphone 20 MG/20 ML PCA IVC PRN (11:52)
[2018-02-24] MEDS ORDERED: Ondansetron 4 MG/2 ML VIAL IVP PRN (11:52)
[2018-02-24] MEDS: D5% in 0.45% NACL 1,000 ML IVC SCH ×2 (13:56→20:56)
[2018-02-24] MEDS ORDERED: *HR* Digoxin 0.125 MG TABLET PO SCH (14:15)
[2018-02-24] MEDS ORDERED: amLODIPine 5 MG TABLET PO SCH (14:15)
[2018-02-24] MEDS: Piperacillin/Tazobactam 3.375 GM in 0.9 % Sodium Chloride Mini Bag 100 ML IVPB SCH ×2 (15:46→20:59)
--- NOTE | 2018-02-24 16:16 | Internal Med Progress Note ---
Date of Encounter: 02/24/18 Time of Encounter: 16:12 - Assessment and plan (1) Colonic mass Current Visit: Yes Status: Acute Assessment and plan: Likely colon cancer, status post resection on 02/23 (2) Large bowel obstruction Current Visit: Yes Status: Acute Assessment and plan: From colon cancer, status post resection Nothing by mouth per surgery (3) Dysphagia Current Visit: Yes Status: Acute Assessment and plan: Unable to swallow pills, we will consult speech therapy Qualifiers: Dysphagia type: oropharyngeal phase Qualified Code(s): R13.12 - Dysphagia, oropharyngeal phase (4) Broca's aphasia Current Visit: Yes Status: Chronic Assessment and plan: Aphasia from stroke (5) Hypertension Current Visit: Yes Status: Chronic Qualifiers: Hypertension type: essential hypertension Qualified Code(s): I10 - Essential (primary) hypertension (6) Atrial fibrillation Current Visit: Yes Status: Chronic Assessment and plan: Atrial fibrillation, rate controlled by IV metoprolol and digoxin. She was on Coumadin at home. INR 2.8 To restart her Coumadin when surgery is okay, and able to take oral Qualifiers: Atrial fibrillation type: chronic Qualified Code(s): I48.2 - Chronic atrial fibrillation (7) CVA (cerebral vascular accident) Current Visit: Yes Status: Chronic Qualifiers: CVA mechanism: embolism Precerebral and cerebral artery: unspecified precerebral artery Qualified Code(s): I63.10 - Cerebral infarction due to embolism of unspecified precerebral artery (8) History of mitral valve replacement with bioprosthetic valve Current Visit: Yes Status: Chronic (9) UTI (urinary tract infection) Current Visit: Yes Status: Acute Assessment and plan: Continue IV antibiotics zosyn Qualifiers: Urinary tract infection type: site unspecified Hematuria presence: without hematuria Qualified Code(s): N39.0 - Urinary tract infection, site not specified - Time Spent With Patient Total time spent is greater than 50% in coordination of care (as documented) at patient's floor/unit and/or counseling patient: 25 - 35 minutes - Subjective Interval history: Ms. Galeana is a 87 year old female present to ER for abdominal pain and distention. Past medical history is significant for A. fib, history of CVA with aphasia, history of mitral vital replacement with bio valve, hypertension. Patient is aphasia and no family member at bedside when I saw her. History is obtained from previous medical records and ER documentation. Patient has increased distention of the belly in last 2 days and was referred from PCP to the emergency room. In the emergency room, CT abdomen shows colon mass with obstruction. Surgical consult was called and recommend admission and antibiotic treatment as patient has leukocytosis. Patient denies fever. 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 She had Placement of central venous line via left subclavian vein; Exploratory celiotomy , lysis of adhesions enduring over 45 minutes, right colectomy with stapled entero-colonic anastomosis on 02/23. Patient did tolerate the procedure well, 1 out of ICU today. She is alert, non-verbal, only ssays "yes". discussed with her nurse, who tried oral medication, she is unable to swallow. will consult SP therapy contineu IV meds - Constitutional Vitals: Temp Pulse Resp BP Pulse Ox 97.3 F L 98 16 160/90 98 02/24/18 15:38 02/24/18 15:38 02/24/18 15:38 02/24/18 15:38 02/24/18 15:38 General appearance: Present: A&O X 0, cooperative, pleasant, no acute distress Exam: CONSTITUTIONAL: patient appears as an age appropriate female in no acute distress. EYES Clear sclerae, bilateral pupils are equal, reactive to light. EMOI. RESPIRATORY: No accessory muscle use, bilateral clear to auscultation, no wheezing, no crackles/rales. CARDIOVASCULAR: Regular heart rate, normal S1 and S2, no murmurs GASTROINTESTINAL: bowel sounds present, soft, no tenderness. MUSCULOSKELETAL: Joints in normal range of motion, no clubbing, no edema, no cyanosis. Bilateral peripheral pulses 2+. NEUROLOGIC: CN II to XII are grossly intact, no focal neurological deficit. she is nonverbal Internal Medicine: Result - Labs CBC & Chem 7: 02/24/18 04:00 02/24/18 04:00 Labs: Short CBC 02/24/18 Range/Units 04:00 WBC 16.8 H (4.3-11.1) K/mcL Hgb 14.2 (11.5-15.4) g/dL Hct 42.8 (35.3-44.9) % Plt Count 337 (140-400) K/mcL Neutrophils # 13.8 H (1.6-8.9) K/mcL BMP 02/24/18 04:00 Sodium 143 Potassium 3.6 Chloride 107 Carbon Dioxide 27 BUN 20 Creatinine 0.64 Glucose 158 H Calcium 8.4 L - ABG Interpretation ABG results: PT/INR, D-dimer PT 30.7 Seconds (9.4-12.1) H 02/24/18 04:00 - Impressions Impressions Chest X-Ray 02/23/18 20:12 IMPRESSION: Placement of left central venous catheter with no evidence for pneumothorax. Likely small left effusion and atelectasis. D/ / Saul Hung MD / Saul Hung MD Interpreting Provider: Saul Hung MD - VTE Reasons for not Prescribing Prophylaxis: Medical contraindication (Plan for surgery today) Documentation of Mechanical Device: Intermittent pneumatic compression device Consult Discharge Plan - Plan Referrals: Juan Fernandez MD [Primary Care Provider] -
[2018-02-24] MEDS: *HR* Digoxin 0.5 MG/2 ML AMPUL IVP SCH (18:10)
[2018-02-25] MEDS: *HR* Metoprolol 5 MG/5 ML VIAL IVP SCH ×2 (02:26→08:01)
[2018-02-25] MEDS: Albuterol 2.5 MG/3 ML NEBULIZER IH SCH ×4 (03:49→21:02)
[2018-02-25 03:59] LABS: Basophils % 0.2 %; Eosinophils # 0.2 K/mcL (0.0-0.6); Eosinophils % 1.2 %; Hematocrit 33.7 % (35.3-44.9); Lymphocytes # 1.3 K/mcL (0.6-4.6); Lymphocytes % 9.4 %; Mean Corpuscular HGB Conc 32.3 g/dL (31.6-35.5); Mean Corpuscular Hemoglobin 29.3 pg (28.0-33.3); Mean Corpuscular Volume 90.6 fL (83.0-100.0); Mean Platelet Volume 10.2 fL (9.4-12.4); Monocytes # 1.6 K/mcL (0.0-1.3); Monocytes % 11.4 %; Neutrophils # 10.4 K/mcL (1.6-8.9); Platelet Count 269 K/mcL (140-400); Red Blood Count 3.72 M/mcL (3.82-4.97); Red Cell Distribution Width 13.2 % (11.5-14.5); Segmented Neutrophils % 76.8 %
[2018-02-25 04:16] LABS: Alanine Aminotransferase 16 Units/L (7-52); Albumin 2.7 g/dL (3.5-5.7); Albumin/Globulin Ratio 1.1 (1.1-2.2); Alkaline Phosphatase 74 Units/L (34-104); Aspartate Amino Transferase 12 Units/L (13-39); BUN/Creatinine Ratio 30 (6-26); Bilirubin,Total 0.8 mg/dL (0.3-1.0); Blood Urea Nitrogen 19 mg/dL (8-23); Calcium 8.5 mg/dL (8.6-10.3); Carbon Dioxide 32 mEq/L (23-29); Chloride 107 mEq/L (98-107); Globulin 2.4 g/dL (2.4-3.5); Glucose 188 mg/dL (70-105); Hemoglobin 10.9 g/dL (11.5-15.4); Osmolality,Calculated 309 (280-300); Potassium 3.1 mEq/L (3.5-5.1); Sodium 146 mEq/L (136-145); Total Protein 5.1 g/dL (6.4-8.9); eGFR For African Americans > 60 (> 60); eGFR For Non-African Americans > 60 (> 60)
[2018-02-25 04:30] LABS: Prothrombin Time 44.6 Seconds (9.4-12.1)
[2018-02-25] MEDS: Piperacillin/Tazobactam 3.375 GM in 0.9 % Sodium Chloride Mini Bag 100 ML IVPB SCH (05:09)
[2018-02-25] MEDS ORDERED: Potassium Chloride 40 MEQ/200 ML BAG IVPB ONE (07:28)
[2018-02-25] MEDS: Pantoprazole 40 MG VIAL IVP SCH (08:00)
[2018-02-25] MEDS: *HR* Digoxin 0.5 MG/2 ML AMPUL IVP SCH (08:01)
[2018-02-25] MEDS: Metoprolol XL (24 HR) Succ 50 MG TAB.ER.24H PO SCH ×2 (08:02→14:12)
[2018-02-25] MEDS ORDERED: 0.9 % Sodium Chloride 250 ML ONE ×2 (08:58→14:09)
[2018-02-25] MEDS ORDERED: Furosemide 40 MG/4 ML VIAL IVP ONE (11:49)
--- NOTE | 2018-02-25 12:02 | General Surgery Progress Note ---
Date of Encounter: 02/25/18 Time of Encounter: 11:25 Subjective Narrative: General Surgery - POD #2 Patient awake and alert; is responding to questions. Nursing reports the patient has been resisting ingestion of her oral meds ( spitting them out) Patient continues to be afebrile, currently 97.9, pulse 88-98, irregular; respirations 16 and unlabored, blood pressure 156/83. Lungs: Clear; good inspiratory effort without obvious abdominal pain Abdomen: Difficult to examine as patient indicates that she is tender but she exhibited a response to palpation prior to me making contact with her abdomen. Bowel sounds are active. Midline incision clean and dry. Unknown if the patient is passing flatus; no BM Urine output: Improved with fluid boluses - 300 mL for calendar day 02/24/18; 350 mL so far today Labs: White count 13.6; neutrophils improved to 10.4%. Hemoglobin 10.9 with hematocrit 33.7- likely response to IV fluids/boluses Platelet count 269,000. PT has increased to 44.6, INR 4.0 Sodium 146, potassium 3.1, chloride 107, BUN 19, creatinine 0.64. Total protein depressed at 5.1, albumin 2.7. Operative pathology: Pending Impression/Plan: Postoperative day #2 - acceptable postoperative status. Bowel activity audible. Hypokalemia - 40 mEq IV K riders ordered Hypernatremia without obvious sequela Recurrent anticoagulated state - fresh frozen plasma and vitamin K to be administered History of atrial fibrillation CAD with prior MA - cardiac status appears be stable. hypertension History of stroke with severe aphasia - status appears stable Oliguria - improved with fluids Improved bowel function - we will allow clear liquids. We will trial oral pain medication to provide longer acting narcotic analgesia Objective Vital Signs - Last 8 Hours Temp Pulse Resp BP Pulse Ox 02/25/18 11:10 97.7 F 98 16 156/83 93 02/25/18 10:48 16 93 02/25/18 09:25 98.4 F 90 16 157/80 93 02/25/18 09:10 98.4 F 88 16 164/91 93 02/25/18 06:42 97.6 F 107 16 174/89 94 02/25/18 04:18 98.5 F 76 17 158/75 94 Intake and Output 02/24/18 02/25/18 02/25/18 23:59 07:59 15:59 Intake Total 1220 / 1220 1010 / 1010 151 / 151 Output Total 0 / 0 350 / 350 Balance 1220 / 1220 660 / 660 151 / 151 Intake: IV Fluids 1100 / 1100 1010 / 1010 151 / 151 D5% And 0.45% Nacl 1000 Ml Bag 1000 / 1000 910 / 910 1,000 ML @ 100 mls/hr IVC .Q10H [facility] Rx#:[id number] AquaMephyton 10 MG In 0.9 % 51 / 51 Sodium Chloride 50 ML @ 100 mls /hr IVPB [facility] Rx#: [id number] Zosyn 3.375 GM In 0.9 % Sodium 100 / 100 100 / 100 100 / 100 Chloride (Mini-Bag +) 100 ML @ 25 mls/hr IVPB Q8H [facility] Rx#: [id number] Oral 120 / 120 0 / 0 0 / 0 Blood Product 0 / 0 Plasma Unit [id number] 0 / 0 Output: Catheter 0 / 0 350 / 350 Other: Meal NPO Percent of Meal Consumed 0% Blood Glucose* 168 165 139 - Labs 02/25/18 03:40 02/25/18 03:40 Diabetes panel 02/25/18 Range/Units 03:40 Sodium 146 H (136-145) mEq/L Potassium 3.1 L (3.5-5.1) mEq/L Chloride 107 (98-107) mEq/L Carbon Dioxide 32 H (23-29) mEq/L BUN 19 (8-23) mg/dL Creatinine 0.64 (0.60-1.20) mg/dL Glucose 188 H (70-105) mg/dL Calcium 8.5 L (8.6-10.3) mg/dL AST 12 L (13-39) Units/L ALT 16 (7-52) Units/L Alkaline Phosphatase 74 (34-104) Units/L Albumin 2.7 L (3.5-5.7) g/dL Calcium panel 02/25/18 Range/Units 03:40 Calcium 8.5 L (8.6-10.3) mg/dL Albumin 2.7 L (3.5-5.7) g/dL Pituitary panel 02/25/18 Range/Units 03:40 Sodium 146 H (136-145) mEq/L Potassium 3.1 L (3.5-5.1) mEq/L Chloride 107 (98-107) mEq/L Carbon Dioxide 32 H (23-29) mEq/L BUN 19 (8-23) mg/dL Creatinine 0.64 (0.60-1.20) mg/dL Glucose 188 H (70-105) mg/dL Calcium 8.5 L (8.6-10.3) mg/dL Adrenal panel 02/25/18 Range/Units 03:40 Sodium 146 H (136-145) mEq/L Potassium 3.1 L (3.5-5.1) mEq/L Chloride 107 (98-107) mEq/L Carbon Dioxide 32 H (23-29) mEq/L BUN 19 (8-23) mg/dL Creatinine 0.64 (0.60-1.20) mg/dL Glucose 188 H (70-105) mg/dL Calcium 8.5 L (8.6-10.3) mg/dL Total Bilirubin 0.8 (0.3-1.0) mg/dL AST 12 L (13-39) Units/L ALT 16 (7-52) Units/L Alkaline Phosphatase 74 (34-104) Units/L Albumin 2.7 L (3.5-5.7) g/dL - VTE Reasons for not Prescribing Prophylaxis: Medical contraindication (Plan for surgery today) Documentation of Mechanical Device: Intermittent pneumatic compression device Consult Discharge Plan - Plan Referrals: Praneeth Mendieta MD [Non-Partnered Physician] -
[2018-02-25] MEDS: *HR* OxyCODONE Immed Rel 5 MG TABLET PO PRN ×2 (14:23→20:40)
--- NOTE | 2018-02-25 16:21 | Internal Med Progress Note ---
<Nano Frias - Last Filed: 02/25/18 17:06> Date of Encounter: 02/25/18 Time of Encounter: 09:45 - Assessment and plan (1) Large bowel obstruction Current Visit: Yes Status: Acute Assessment and plan: POD #2 s/p right colectomy for obstructing mass, likely neoplastic, in the ascending colon See plan for colonic mass below (2) Colonic mass Current Visit: Yes Status: Acute Assessment and plan: POD #2 s/p right colectomy for obstructing mass, likely neoplastic, in the ascending colon CT abdomen pelvis showing evidence of high-grade obstruction of small and large bowel by large circumferential colonic mass; dilation of large bowel measuring up to 9.7 cm Path report for lymph node and colon surgical specimens pending Patient has not had a bowel movement or passed flatus yet--bowel sounds on exam TUBE WINDER pump for pain - Clear liquid diet - Trial oral pain meds (3) UTI (urinary tract infection) Current Visit: Yes Status: Acute Assessment and plan: Asymptomatic candiduria Final UCx shows Sania kefyr IV Zosyn was discontinued after 6 days Urinary catheter in place Qualifiers: Urinary tract infection type: site unspecified Hematuria presence: without hematuria Qualified Code(s): N39.0 - Urinary tract infection, site not specified (4) Atrial fibrillation Current Visit: Yes Status: Chronic Assessment and plan: History of AFib rate controlled on digoxin and metoprolol Heart rate is well-controlled at this time Takes warfarin at home, most recent INR 4.0 [id number]: 7 HAS-BLED: 4 Not currently anticoagulated Has received 10 units FFP since 02/20/18 - Continue metoprolol and digoxin - SCDs for now, continue to hold warfarin Qualifiers: Atrial fibrillation type: chronic Qualified Code(s): I48.2 - Chronic atrial fibrillation (5) History of mitral valve replacement with bioprosthetic valve Current Visit: Yes Status: Chronic Assessment and plan: Echo 2014 showed no prosthetic mitral regurgitation (LVEF 65-70%) - Continue to monitor (6) Hypertension Current Visit: Yes Status: Chronic Qualifiers: Hypertension type: essential hypertension Qualified Code(s): I10 - Essential (primary) hypertension (7) CVA (cerebral vascular accident) Current Visit: Yes Status: Chronic Qualifiers: CVA mechanism: embolism Precerebral and cerebral artery: unspecified precerebral artery Qualified Code(s): I63.10 - Cerebral infarction due to embolism of unspecified precerebral artery (8) DVT prophylaxis Current Visit: Yes Status: Acute (9) Hypokalemia Current Visit: Yes Status: Acute Assessment and plan: Potassium 3.1 this morning Replaced with IV potassium, 60 mEq total - Replete potassium PRN - Recheck BMP in AM - Time Spent With Patient Total time spent is greater than 50% in coordination of care (as documented) at patient's floor/unit and/or counseling patient: - Subjective Interval history: Seen and examined at bedside this morning. Her and her son are also present. Patient is resting comfortably in bed. Past h/o CVA with Broca's aphasia, pt able to provide short verbal answer of yes/no. Many questions answered by her son and . Pt admits post-op abdominal pain, denies chest pain, denies shortness of breath. No bowel movement or flatus yet this morning. - Constitutional Vitals: Temp Pulse Resp BP Pulse Ox 98.7 F 99 16 145/71 94 02/25/18 14:44 02/25/18 15:53 02/25/18 15:56 02/25/18 14:44 02/25/18 15:56 General appearance: Present: cooperative, pleasant, no acute distress Exam: General: No acute distress, resting comfortably in bed HEENT: head normocephalic/atraumatic, EOMI, PERRL, sclera anicteric, moist mucus membranes, Neck: Supple, FROM Cardio: RRR, no murmurs, +S1/S2, radial pulses 2+ bilaterally, no LE edema Pulm: CTAB, no wheezing or rhonchi. Normal respiratory effort. Abdomen: Tender to light palpation, faint bowel sounds, no rebound, no rigidity , firm--possibly involuntary guarding Extremities: No LE edema, no cyanosis, no clubbing, Neuro: no focal deficit, Broca's aphasia,, moves extremities spontaneously, seems to understand questions when asked Skin: midline incision with nguyen is clean, dry, intact, no visible rashes, no surrounding erythema, no active draining Psych:. Cooperative with exam Internal Medicine: Result - Labs CBC & Chem 7: 02/25/18 03:40 02/25/18 03:40 Labs: Short CBC 02/25/18 Range/Units 03:40 WBC 13.6 H (4.3-11.1) K/mcL Hgb 10.9 L D (11.5-15.4) g/dL Hct 33.7 L (35.3-44.9) % Plt Count 269 (140-400) K/mcL Neutrophils # 10.4 H (1.6-8.9) K/mcL BMP 02/25/18 03:40 Sodium 146 H Potassium 3.1 L Chloride 107 Carbon Dioxide 32 H BUN 19 Creatinine 0.64 Glucose 188 H Calcium 8.5 L Liver Function 02/25/18 Range/Units 03:40 Total Bilirubin 0.8 (0.3-1.0) mg/dL AST 12 L (13-39) Units/L ALT 16 (7-52) Units/L Alkaline Phosphatase 74 (34-104) Units/L Albumin 2.7 L (3.5-5.7) g/dL - ABG Interpretation ABG results: PT/INR, D-dimer PT 44.6 Seconds (9.4-12.1) H* 02/25/18 03:40 - VTE Reasons for not Prescribing Prophylaxis: Medical contraindication (Plan for surgery today) Documentation of Mechanical Device: Intermittent pneumatic compression device Consult Discharge Plan - Plan Referrals: Praneeth Mendieta MD [Non-Partnered Physician] - <Wilfredo Piper - Last Filed: 02/25/18 18:16> Date of Encounter: 02/25/18 - Assessment and plan (1) Large bowel obstruction Current Visit: Yes Status: Acute (2) Colonic mass Current Visit: Yes Status: Acute (3) Coagulopathy Current Visit: Yes Status: Acute (4) Hypertension Current Visit: Yes Status: Chronic Qualifiers: Hypertension type: essential hypertension Qualified Code(s): I10 - Essential (primary) hypertension (5) DVT prophylaxis Current Visit: Yes Status: Acute (6) Atrial fibrillation Current Visit: Yes Status: Chronic Qualifiers: Atrial fibrillation type: chronic Qualified Code(s): I48.2 - Chronic atrial fibrillation (7) CVA (cerebral vascular accident) Current Visit: Yes Status: Chronic Qualifiers: CVA mechanism: embolism Precerebral and cerebral artery: middle cerebral artery Laterality of affected vessel: left Qualified Code(s): I63.412 - Cerebral infarction due to embolism of left middle cerebral artery (8) History of mitral valve replacement with bioprosthetic valve Current Visit: Yes Status: Chronic (9) UTI (urinary tract infection) Current Visit: Yes Status: Acute Qualifiers: Urinary tract infection type: acute cystitis Hematuria presence: without hematuria Qualified Code(s): N30.00 - Acute cystitis without hematuria (10) Hypokalemia Current Visit: Yes Status: Acute - Time Spent With Patient Total time spent is greater than 50% in coordination of care (as documented) at patient's floor/unit and/or counseling patient: - Constitutional Vitals: Temp Pulse Resp BP Pulse Ox 98.5 F 92 16 150/63 94 02/25/18 17:47 02/25/18 17:47 02/25/18 17:47 02/25/18 17:47 02/25/18 15:56 Internal Medicine: Result - Labs CBC & Chem 7: 02/25/18 03:40 02/25/18 03:40 Labs: Short CBC 02/25/18 Range/Units 03:40 WBC 13.6 H (4.3-11.1) K/mcL Hgb 10.9 L D (11.5-15.4) g/dL Hct 33.7 L (35.3-44.9) % Plt Count 269 (140-400) K/mcL Neutrophils # 10.4 H (1.6-8.9) K/mcL BMP 02/25/18 03:40 Sodium 146 H Potassium 3.1 L Chloride 107 Carbon Dioxide 32 H BUN 19 Creatinine 0.64 Glucose 188 H Calcium 8.5 L Liver Function 02/25/18 Range/Units 03:40 Total Bilirubin 0.8 (0.3-1.0) mg/dL AST 12 L (13-39) Units/L ALT 16 (7-52) Units/L Alkaline Phosphatase 74 (34-104) Units/L Albumin 2.7 L (3.5-5.7) g/dL - ABG Interpretation ABG results: PT/INR, D-dimer PT 44.6 Seconds (9.4-12.1) H* 02/25/18 03:40 - Attending Attestation I examined this patient and my medical decision-making was reviewed with the Resident Physician on 02/25/18. I agree with the documented findings, disposition and treatment plan as described except to the extent set forth below. Ms Galeana is currently admitted for large bowel obstruction due to colonic mass. She is s/p resection. She remains moderate to high risk due to potential for worsening clinical status. Ms Galeana appears to be having some pain. No fever. No other new issues. Exam alert Moderate distress - ? pain Mucus membranes dry Heart distant Lungs diminished Some bowel sounds I/P 1. Bowel obstruction 2. Colonic mass 3. Coagulopathy Further diagnoses and plan as above.
[2018-02-25] MEDS: D5% in 0.45% NACL 1,000 ML IVC SCH (17:45)
[2018-02-26] MEDS: *HR* OxyCODONE Immed Rel 5 MG TABLET PO PRN ×2 (03:43→09:31)
[2018-02-26] MEDS: Albuterol 2.5 MG/3 ML NEBULIZER IH SCH ×2 (03:50→10:56)
[2018-02-26 04:21] LABS: Basophils % 0.3 %; Eosinophils # 0.4 K/mcL (0.0-0.6); Eosinophils % 3.3 %; Hematocrit 29.8 % (35.3-44.9); Hemoglobin 9.5 g/dL (11.5-15.4); Immature Granulocytes % 1.7 % (0-4); Lymphocytes # 1.6 K/mcL (0.6-4.6); Lymphocytes % 12.8 %; Mean Corpuscular HGB Conc 31.9 g/dL (31.6-35.5); Mean Corpuscular Hemoglobin 29.3 pg (28.0-33.3); Mean Platelet Volume 10.5 fL (9.4-12.4); Monocytes # 1.3 K/mcL (0.0-1.3); Monocytes % 10.7 %; Neutrophils # 8.9 K/mcL (1.6-8.9); Platelet Count 232 K/mcL (140-400); Red Blood Count 3.24 M/mcL (3.82-4.97); Red Cell Distribution Width 13.2 % (11.5-14.5); Segmented Neutrophils % 71.2 %
[2018-02-26 04:30] LABS: INR 1.2; Prothrombin Time 13.3 Seconds (9.4-12.1)
[2018-02-26 04:44] LABS: BUN/Creatinine Ratio 25 (6-26); Blood Urea Nitrogen 14 mg/dL (8-23); Calcium 8.1 mg/dL (8.6-10.3); Carbon Dioxide 31 mEq/L (23-29); Chloride 104 mEq/L (98-107); Glucose 171 mg/dL (70-105); Magnesium 1.4 mg/dL (1.6-2.6); Osmolality,Calculated 299 (280-300); Phosphorous 1.6 mg/dL (2.7-4.5); Potassium 2.9 mEq/L (3.5-5.1); Sodium 142 mEq/L (136-145); eGFR For African Americans > 60 (> 60); eGFR For Non-African Americans > 60 (> 60)
[2018-02-26] MEDS: Metoprolol XL (24 HR) Succ 50 MG TAB.ER.24H PO SCH (08:31)
[2018-02-26] MEDS: *HR* Digoxin 0.5 MG/2 ML AMPUL IVP SCH (08:32)
[2018-02-26] MEDS: Pantoprazole 40 MG VIAL IVP SCH (08:32)
[2018-02-26] MEDS ORDERED: Potassium Chloride 40 MEQ/200 ML BAG IVPB ONE (13:13)
--- NOTE | 2018-02-26 13:26 | General Surgery Progress Note ---
Date of Encounter: 02/26/18 Time of Encounter: 13:15 Subjective Narrative: General Surgery - POD #3 Patient remains afebrile, hemodynamically stable; currently 97.9, pulse 73 but irregular, respirations 18, blood pressure 148/69. SPO2 on room air 95% Patient very difficult to assess as she answers yes to every question. Lungs: Clear. Unable to detect whether the patient's having pain on deep inspiration Cardiac: Irregular rate Abdomen: Incisional tenderness as expected; Hypoactive bowel sounds. No recorded bowel movement. Midline incision clean and dry. Urine output: 1504 02/25/18; 475 mL so part Laboratories: Leukocytosis slowly returning to normal, 12.5, hemoglobin 9.5 with hematocrit 29.8. Platelet count 232,000; differential hss returned to normal neutrophilia resolved PT has corrected the 13.2, INR 1.2; cotinue to monitor Electrolytes notable for potassium 2.9 despite potassium administered IV yesterday. Phosphorus depressed at 1.6, magnesium 1.4. 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 Patient is very difficult to assess but appears to be recovering. Hypokalemia, hypophosphatemia and hypomagnesemia - replacement therapy ordered. anemia - stable; current H&H 9.5/29.8 Hypercoagulation - corrected Atrial fibrillation - persistent/stable Objective Vital Signs - Last 8 Hours Temp Pulse Resp BP Pulse Ox 02/26/18 10:56 18 90 02/26/18 10:25 97.9 F 73 18 148/69 95 02/26/18 06:57 98.6 F 71 18 137/66 95 Intake and Output 02/25/18 02/26/18 02/26/18 23:59 07:59 15:59 Intake Total 685 / 685 20 / 20 Output Total 700 / 700 200 / 200 275 / 275 Balance -15 / -15 -180 / -180 -275 / -275 Intake: Oral 360 / 360 20 / 20 Blood Product 325 / 325 Plasma Unit [id number] 325 / 325 Output: Catheter 700 / 700 200 / 200 275 / 275 Other: Meal Clear # Bowel Movement Diapers 0 0 Weight 70 kg Patient Weight 02/26/18 23:59 Weight 70 kg - Labs 02/26/18 04:05 02/26/18 04:05 Diabetes panel 02/26/18 Range/Units 04:05 Sodium 142 (136-145) mEq/L Potassium 2.9 L (3.5-5.1) mEq/L Chloride 104 (98-107) mEq/L Carbon Dioxide 31 H (23-29) mEq/L BUN 14 (8-23) mg/dL Creatinine 0.56 L (0.60-1.20) mg/dL Glucose 171 H (70-105) mg/dL Calcium 8.1 L (8.6-10.3) mg/dL Calcium panel 02/26/18 Range/Units 04:05 Calcium 8.1 L (8.6-10.3) mg/dL Phosphorus 1.6 L (2.7-4.5) mg/dL Pituitary panel 02/26/18 Range/Units 04:05 Sodium 142 (136-145) mEq/L Potassium 2.9 L (3.5-5.1) mEq/L Chloride 104 (98-107) mEq/L Carbon Dioxide 31 H (23-29) mEq/L BUN 14 (8-23) mg/dL Creatinine 0.56 L (0.60-1.20) mg/dL Glucose 171 H (70-105) mg/dL Calcium 8.1 L (8.6-10.3) mg/dL Adrenal panel 02/26/18 Range/Units 04:05 Sodium 142 (136-145) mEq/L Potassium 2.9 L (3.5-5.1) mEq/L Chloride 104 (98-107) mEq/L Carbon Dioxide 31 H (23-29) mEq/L BUN 14 (8-23) mg/dL Creatinine 0.56 L (0.60-1.20) mg/dL Glucose 171 H (70-105) mg/dL Calcium 8.1 L (8.6-10.3) mg/dL - VTE Reasons for not Prescribing Prophylaxis: Medical contraindication (Plan for surgery today) Documentation of Mechanical Device: Intermittent pneumatic compression device Consult Discharge Plan - Plan Referrals: Praneeth Mendieta MD [Non-Partnered Physician] -
[2018-02-26] MEDS: D5% in 0.45% NACL 1,000 ML IVC SCH (13:52)
[2018-02-26] MEDS ORDERED: Albuterol 2.5 MG/3 ML NEBULIZER IH PRN (14:05)
--- NOTE | 2018-02-26 18:45 | Event Note ---
Date of Encounter: 02/26/18 Time of Encounter: 08:00 I examined this patient and my medical decision-making was reviewed with the Resident Physician on 02/26/18. I agree with the documented findings, disposition and treatment plan as described except to the extent set forth below. Ms Galeana is currently admitted for bowel obstruction and colon mass that has been resected. She remains moderate to high risk due to potential for worsening clinical status. Ms Galeana appears to be uncomfortable. No fever. Tolerated clears. No other new issues. Exam Alert uncomfortable at this time Mucus membranes dry Heart not tachy Lungs diminished Bowel sounds heard I/P 1. Bowel obstruction 2. Colon mass 3. Hypokalemia, hypomagnesemia, hypophosphatemia Further diagnoses and plan as per progress note of today.
--- NOTE | 2018-02-26 19:23 | Internal Med Progress Note ---
<Nano Frias - Last Filed: 02/26/18 19:20> Date of Encounter: 02/26/18 Time of Encounter: 10:40 - Assessment and plan (1) Colonic mass Current Visit: Yes Status: Acute Assessment and plan: POD #3 s/p right colectomy for obstructing mass, likely neoplastic, in the ascending colon CT abdomen pelvis showing evidence of high-grade obstruction of small and large bowel by large circumferential colonic mass; dilation of large bowel measuring up to 9.7 cm Path report for lymph node and colon surgical specimens pending CEA level WNL Patient has not had a bowel movement or passed flatus yet Roxicodone for pain - Clear liquid diet with dietary supplements (2) Large bowel obstruction Current Visit: Yes Status: Acute Assessment and plan: POD #3 s/p right colectomy for obstructing mass, likely neoplastic, in the ascending colon See plan for colonic mass (3) Hypokalemia Current Visit: Yes Status: Acute Assessment and plan: Potassium 2.9 this morning - Replete potassium PRN - Recheck BMP in AM (4) Coagulopathy Current Visit: Yes Status: Acute Assessment and plan: Takes coumadin at home INR level doesn't stay consistent INR 1.2 today, 4.0 yesterday Currently holding coumadin (5) Hypertension Current Visit: Yes Status: Chronic Assessment and plan: 148/69 this morning Continue losartan and PRN hydralazine Qualifiers: Hypertension type: essential hypertension Qualified Code(s): I10 - Essential (primary) hypertension (6) Atrial fibrillation Current Visit: Yes Status: Chronic Assessment and plan: History of AFib rate controlled on digoxin and metoprolol Heart rate is well-controlled at this time Takes warfarin at home, most recent INR 1.2 [id number]: 7 HAS-BLED: 4 Has received 10 units FFP since 02/20/18 - Continue metoprolol and digoxin - SCDs for now, continue to hold warfarin Qualifiers: Atrial fibrillation type: chronic Qualified Code(s): I48.2 - Chronic atrial fibrillation (7) History of mitral valve replacement with bioprosthetic valve Current Visit: Yes Status: Chronic Assessment and plan: Echo 2014 showed no prosthetic mitral regurgitation (LVEF 65-70%) - Continue to monitor (8) CVA (cerebral vascular accident) Current Visit: Yes Status: Chronic Assessment and plan: History of CVA with residual aphasia. Qualifiers: CVA mechanism: embolism Precerebral and cerebral artery: middle cerebral artery Laterality of affected vessel: left Qualified Code(s): I63.412 - Cerebral infarction due to embolism of left middle cerebral artery (9) UTI (urinary tract infection) Current Visit: Yes Status: Acute Assessment and plan: Asymptomatic candiduria Final UCx shows Sania kefyr IV Zosyn was discontinued after 6 days Urinary catheter in place Qualifiers: Urinary tract infection type: acute cystitis Hematuria presence: without hematuria Qualified Code(s): N30.00 - Acute cystitis without hematuria (10) DVT prophylaxis Current Visit: Yes Status: Acute Assessment and plan: SCDs for now. (11) Hypomagnesemia Current Visit: Yes Status: Acute Assessment and plan: Magnesium 1.4 this morning - Replete magnesium PRN - Recheck in AM (12) Hypophosphatemia Current Visit: Yes Status: Acute Assessment and plan: Phosphorous 1.6 this morning - Replete phosphorous PRN - Recheck in AM - Time Spent With Patient Total time spent is greater than 50% in coordination of care (as documented) at patient's floor/unit and/or counseling patient: - Subjective Interval history: Seen and examined at bedside this morning. Her and her son are also present. Patient is resting comfortably in bed. Pt provides short verbal answers to questions, uses gestures to help communicate. Pt able to tell me she feels ok today. Many questions answered by her son. No chest pain and denies shortness of breath. She denies bowel movement or flatus yet. Tolerating clear liquid diet. - Constitutional Vitals: Temp Pulse Resp BP Pulse Ox 98.9 F 67 15 172/82 93 02/26/18 18:43 02/26/18 18:43 02/26/18 18:43 02/26/18 18:43 02/26/18 18:43 Exam: General: No acute distress, resting comfortably in bed HEENT: head normocephalic/atraumatic, EOMI, PERRL, sclera anicteric, moist mucus membranes, Neck: Supple, FROM Cardio: RRR, no murmurs, +S1/S2, no LE edema Pulm: CTAB, no wheezing or rhonchi. Normal respiratory effort. Abdomen: Tender palpation, audible bowel sounds, no rebound, no rigidity Extremities: No LE edema, no cyanosis, no clubbing, Neuro: no focal deficit, Broca's aphasia,, moves extremities spontaneously, seems to understand questions when asked Skin: midline incision with nguyen is clean, dry, intact, no visible rashes, no surrounding erythema, small amount clear yellow fluid coming from incision site Psych:. Cooperative with exam Internal Medicine: Result - Labs CBC & Chem 7: 02/26/18 04:05 02/26/18 04:05 Labs: Short CBC 02/26/18 Range/Units 04:05 WBC 12.5 H (4.3-11.1) K/mcL Hgb 9.5 L (11.5-15.4) g/dL Hct 29.8 L (35.3-44.9) % Plt Count 232 (140-400) K/mcL Neutrophils # 8.9 (1.6-8.9) K/mcL BMP 02/26/18 04:05 Sodium 142 Potassium 2.9 L Chloride 104 Carbon Dioxide 31 H BUN 14 Creatinine 0.56 L Glucose 171 H Calcium 8.1 L - ABG Interpretation ABG results: PT/INR, D-dimer PT 13.3 Seconds (9.4-12.1) H D 02/26/18 04:05 - VTE Reasons for not Prescribing Prophylaxis: Medical contraindication (Plan for surgery today) Documentation of Mechanical Device: Intermittent pneumatic compression device Consult Discharge Plan - Plan Referrals: Praneeth Mendieta MD [Non-Partnered Physician] - <Wilfredo Piper A - Last Filed: 02/27/18 09:41> Date of Encounter: 02/26/18 - Assessment and plan (1) Hypertension Current Visit: Yes Status: Chronic Qualifiers: Hypertension type: essential hypertension Qualified Code(s): I10 - Essential (primary) hypertension (2) DVT prophylaxis Current Visit: Yes Status: Acute (3) Atrial fibrillation Current Visit: Yes Status: Chronic Qualifiers: Atrial fibrillation type: chronic Qualified Code(s): I48.2 - Chronic atrial fibrillation (4) CVA (cerebral vascular accident) Current Visit: Yes Status: Chronic Qualifiers: CVA mechanism: embolism Precerebral and cerebral artery: middle cerebral artery Laterality of affected vessel: left Qualified Code(s): I63.412 - Cerebral infarction due to embolism of left middle cerebral artery (5) History of mitral valve replacement with bioprosthetic valve Current Visit: Yes Status: Chronic (6) Large bowel obstruction Current Visit: Yes Status: Acute (7) Colonic mass Current Visit: Yes Status: Acute (8) UTI (urinary tract infection) Current Visit: Yes Status: Acute Qualifiers: Urinary tract infection type: acute cystitis Hematuria presence: without hematuria Qualified Code(s): N30.00 - Acute cystitis without hematuria (9) Hypokalemia Current Visit: Yes Status: Acute (10) Coagulopathy Current Visit: Yes Status: Acute (11) Hypomagnesemia Current Visit: Yes Status: Acute (12) Hypophosphatemia Current Visit: Yes Status: Acute - Time Spent With Patient Total time spent is greater than 50% in coordination of care (as documented) at patient's floor/unit and/or counseling patient: - Constitutional Vitals: Temp Pulse Resp BP Pulse Ox 98.2 F 98 16 183/87 93 02/27/18 06:59 02/27/18 06:59 02/27/18 06:59 02/27/18 06:59 02/27/18 06:59 Internal Medicine: Result - Labs CBC & Chem 7: 02/27/18 03:00 02/27/18 03:00 Labs: Short CBC 02/27/18 Range/Units 03:00 WBC 14.7 H (4.3-11.1) K/mcL Hgb 11.2 L D (11.5-15.4) g/dL Hct 34.4 L (35.3-44.9) % Plt Count 305 (140-400) K/mcL Neutrophils # 10.9 H (1.6-8.9) K/mcL BMP 02/27/18 03:00 Sodium 140 Potassium 3.5 Chloride 103 Carbon Dioxide 30 H BUN 9 Creatinine 0.52 L Glucose 153 H Calcium 8.4 L - ABG Interpretation ABG results: PT/INR, D-dimer PT 12.5 Seconds (9.4-12.1) H 02/27/18 03:00 - Attending Attestation I examined this patient and my medical decision-making was reviewed with the Resident Physician on 02/27/18. I agree with the documented findings, disposition and /treatment plan as described except to the extent set forth below. Please see event note of this date.
[2018-02-27 03:21] LABS: Basophils # 0.1 K/mcL (0.0-0.2); Basophils % 0.3 %; Eosinophils # 0.6 K/mcL (0.0-0.6); Eosinophils % 3.8 %; Hematocrit 34.4 % (35.3-44.9); Immature Granulocytes % 1.3 % (0-4); Lymphocytes # 1.6 K/mcL (0.6-4.6); Lymphocytes % 10.6 %; Mean Corpuscular HGB Conc 32.6 g/dL (31.6-35.5); Mean Corpuscular Hemoglobin 29.4 pg (28.0-33.3); Mean Corpuscular Volume 90.3 fL (83.0-100.0); Mean Platelet Volume 10.1 fL (9.4-12.4); Monocytes # 1.5 K/mcL (0.0-1.3); Neutrophils # 10.9 K/mcL (1.6-8.9); Nucleated Red Blood Cells 0.1 /100 WBC (0); Platelet Count 305 K/mcL (140-400); Red Blood Count 3.81 M/mcL (3.82-4.97); Red Cell Distribution Width 13.2 % (11.5-14.5)
[2018-02-27 03:22] LABS: Hemoglobin 11.2 g/dL (11.5-15.4)
[2018-02-27 03:28] LABS: INR 1.2; Prothrombin Time 12.5 Seconds (9.4-12.1)
[2018-02-27 03:39] LABS: BUN/Creatinine Ratio 17 (6-26); Blood Urea Nitrogen 9 mg/dL (8-23); Calcium 8.4 mg/dL (8.6-10.3); Carbon Dioxide 30 mEq/L (23-29); Chloride 103 mEq/L (98-107); Glucose 153 mg/dL (70-105); Magnesium 1.6 mg/dL (1.6-2.6); Osmolality,Calculated 292 (280-300); Phosphorous 2.7 mg/dL (2.7-4.5); Potassium 3.5 mEq/L (3.5-5.1); Sodium 140 mEq/L (136-145); eGFR For African Americans > 60 (> 60); eGFR For Non-African Americans > 60 (> 60)
[2018-02-27] MEDS ORDERED: *HR* Digoxin 0.125 MG TABLET PO SCH (09:00)
[2018-02-27] MEDS: Metoprolol XL (24 HR) Succ 50 MG TAB.ER.24H PO SCH (09:01)
[2018-02-27] MEDS: Pantoprazole 40 MG VIAL IVP SCH (09:02)
--- NOTE | 2018-02-27 10:53 | Internal Med Progress Note ---
<Nano Frias - Last Filed: 02/27/18 16:39> Date of Encounter: 02/27/18 Time of Encounter: 10:52 - Assessment and plan (1) Colonic mass Current Visit: Yes Status: Acute Assessment and plan: POD #4 s/p right colectomy for obstructing mass, likely neoplastic, in the ascending colon CT abdomen pelvis showing evidence of high-grade obstruction of small and large bowel by large circumferential colonic mass; dilation of large bowel measuring up to 9.7 cm Path report for lymph node and colon surgical specimens pending (2) Large bowel obstruction Current Visit: Yes Status: Acute Assessment and plan: POD #4 s/p right colectomy for obstructing mass, likely neoplastic, in the ascending colon See plan for colonic mass (3) Hypertension Current Visit: Yes Status: Chronic Assessment and plan: this morning - scheduled IV metoprolol - IV hydralazine PRN Qualifiers: Hypertension type: essential hypertension Qualified Code(s): I10 - Essential (primary) hypertension (4) Atrial fibrillation Current Visit: Yes Status: Chronic Assessment and plan: Hx of Afib [id number]: 7 HAS-BLED: 4 Has received 10 units FFP since 02/20/18 - Continue metoprolol and digoxin - SCDs for now, continue to hold warfarin Qualifiers: Atrial fibrillation type: chronic Qualified Code(s): I48.2 - Chronic atrial fibrillation (5) Hypokalemia Current Visit: Yes Status: Resolved Assessment and plan: Resolved - replete potassium PRN (6) Coagulopathy Current Visit: Yes Status: Acute Assessment and plan: INR has been stable last two days @ 1.2 (7) DVT prophylaxis Current Visit: Yes Status: Acute Assessment and plan: SCDs for now. (8) CVA (cerebral vascular accident) Current Visit: Yes Status: Chronic Assessment and plan: History of CVA with residual aphasia. Qualifiers: CVA mechanism: embolism Precerebral and cerebral artery: middle cerebral artery Laterality of affected vessel: left Qualified Code(s): I63.412 - Cerebral infarction due to embolism of left middle cerebral artery (9) Ileus following gastrointestinal surgery Current Visit: Yes Status: Acute Assessment and plan: Poor oral intake on clear liquid diet Small amount of progression in return of bowel function 02/27/18 Acute abdominal series: distended small bowel loops measuring up to 4.1 cm, no free air, very little gas within colon - NPO, start TPN - PO meds changed to IV - Time Spent With Patient Total time spent is greater than 50% in coordination of care (as documented) at patient's floor/unit and/or counseling patient: - Subjective Interval history: Pt seen and examined this morning. Family present in the room. Pt is lying in the bed, she is ill-appearing and seems to be in mild distress. Episode of large emesis reported this morning. - Constitutional Vitals: Temp Pulse Resp BP Pulse Ox 98.2 F 98 16 183/87 93 02/27/18 06:59 02/27/18 06:59 02/27/18 06:59 02/27/18 06:59 02/27/18 06:59 Exam: General: vital signs noted, mildly distressed, appears uncomfortable HEENT: head normocephalic/atraumatic, EOMI, PERRL, sclera anicteric Cardio: RRR, no murmurs, +S1/S2, no LE edema Pulm: CTAB, no wheezing or rhonchi. Normal respiratory effort. Abdomen: diffuse tenderness to palpation, audible bowel sounds Extremities: No LE edema, no cyanosis, no clubbing, Neuro: no focal deficit, Broca's aphasia,, moves extremities spontaneously Skin: clean, dry, intact, no visible rashes Internal Medicine: Result - Labs CBC & Chem 7: 02/27/18 03:00 02/27/18 03:00 Labs: Short CBC 02/27/18 Range/Units 03:00 WBC 14.7 H (4.3-11.1) K/mcL Hgb 11.2 L D (11.5-15.4) g/dL Hct 34.4 L (35.3-44.9) % Plt Count 305 (140-400) K/mcL Neutrophils # 10.9 H (1.6-8.9) K/mcL BMP 02/27/18 03:00 Sodium 140 Potassium 3.5 Chloride 103 Carbon Dioxide 30 H BUN 9 Creatinine 0.52 L Glucose 153 H Calcium 8.4 L - ABG Interpretation ABG results: PT/INR, D-dimer PT 12.5 Seconds (9.4-12.1) H 02/27/18 03:00 - VTE Reasons for not Prescribing Prophylaxis: Medical contraindication (Plan for surgery today) Documentation of Mechanical Device: Intermittent pneumatic compression device Consult Discharge Plan - Plan Referrals: Praneeth Mendieta MD [Non-Partnered Physician] - <Wilfredo Piper - Last Filed: 02/27/18 18:29> Date of Encounter: 02/27/18 - Assessment and plan (1) Pulmonary edema Current Visit: Yes Status: Acute Qualifiers: Chronicity: acute Qualified Code(s): J81.0 - Acute pulmonary edema (2) Ileus following gastrointestinal surgery Current Visit: Yes Status: Acute (3) Hypertension Current Visit: Yes Status: Chronic Qualifiers: Hypertension type: essential hypertension Qualified Code(s): I10 - Essential (primary) hypertension (4) DVT prophylaxis Current Visit: Yes Status: Acute (5) Atrial fibrillation Current Visit: Yes Status: Chronic Qualifiers: Atrial fibrillation type: chronic Qualified Code(s): I48.2 - Chronic atrial fibrillation (6) CVA (cerebral vascular accident) Current Visit: Yes Status: Chronic Qualifiers: CVA mechanism: embolism Precerebral and cerebral artery: middle cerebral artery Laterality of affected vessel: left Qualified Code(s): I63.412 - Cerebral infarction due to embolism of left middle cerebral artery (7) Large bowel obstruction Current Visit: Yes Status: Acute (8) Colonic mass Current Visit: Yes Status: Acute (9) Hypokalemia Current Visit: Yes Status: Resolved (10) Coagulopathy Current Visit: Yes Status: Acute - Time Spent With Patient Total time spent is greater than 50% in coordination of care (as documented) at patient's floor/unit and/or counseling patient: - Constitutional Vitals: Temp Pulse Resp BP Pulse Ox 97.9 F 99 15 152/82 94 02/27/18 16:27 02/27/18 16:27 02/27/18 16:27 02/27/18 16:27 02/27/18 16:27 Internal Medicine: Result - Labs CBC & Chem 7: 02/27/18 03:00 02/27/18 03:00 Labs: Short CBC 02/27/18 Range/Units 03:00 WBC 14.7 H (4.3-11.1) K/mcL Hgb 11.2 L D (11.5-15.4) g/dL Hct 34.4 L (35.3-44.9) % Plt Count 305 (140-400) K/mcL Neutrophils # 10.9 H (1.6-8.9) K/mcL BMP 02/27/18 03:00 Sodium 140 Potassium 3.5 Chloride 103 Carbon Dioxide 30 H BUN 9 Creatinine 0.52 L Glucose 153 H Calcium 8.4 L - ABG Interpretation ABG results: PT/INR, D-dimer PT 12.5 Seconds (9.4-12.1) H 02/27/18 03:00 - Impressions Impressions Chest/Abdomen X-ray 02/27/18 10:40 IMPRESSION: 1. Increasing pulmonary edema pattern with moderate subpulmonic left-sided pleural effusion compared to the previous exam. 2. Postoperative ileus pattern appears slightly worse than on the previous exam. No free air is identified. No NG tube is seen. D/ / Marcio Cruz MD / Marcio Cruz MD Interpreting Provider: Marcio Cruz MD - Attending Attestation I examined this patient and my medical decision-making was reviewed with the Resident Physician on 02/27/18. I agree with the documented findings, disposition and treatment plan as described except to the extent set forth below. Ms Galeana is currently admitted for bowel obstruction due to colon mass. She has developed ileus today. She remains moderate to high risk due to potential for worsening clinical status. Ms Galeana vomited this AM. She has ileus on xray. No fever. Some dyspnea earlier. Was agitated last evening. Exam Alert. Appears comfortable at this time. Mucus membranes dry Heart distant Few crackles heard Abd soft I/P 1. Post op ileus 2. Pulmonary edema Further diagnoses and plan as above.
[2018-02-27] MEDS ORDERED: OXYCODONE Oral CONC 10 MG/0.5 ML ORAL.SYG SL PRN (11:35)
[2018-02-27] MEDS ORDERED: *HR* Metoprolol 5 MG/5 ML VIAL IVP PRN (11:35)
[2018-02-27] MEDS ORDERED: D10% in Water 500 ML IVC PRN (12:45)
[2018-02-27] MEDS ORDERED: *HR* Dextrose 50 % in Water (Syg) 50 ML SYRINGE IVP PRN (12:52)
[2018-02-27] MEDS ORDERED: D5% in Water 1,000 ML IVC PRN (12:52)
[2018-02-27] MEDS ORDERED: Dextrose Gel 15 GM/37.5 ML TUBE PO PRN (12:52)
[2018-02-27] MEDS ORDERED: Furosemide 40 MG/4 ML VIAL IVP SCH (13:00)
--- NOTE | 2018-02-27 13:04 | General Surgery Progress Note ---
Date of Encounter: 02/27/18 Time of Encounter: 12:00 Subjective Narrative: General Surgery - POD #4 Patient with large emesis early this morning; patient remains difficult to assess as she is unable to express herself and communicate effectively. Acute abdominal series ordered and reviewed with [facility]. Findings include worsening pulmonary vascular congestion; moderate subpulmonic left- sided pleural effusion with left basilar atelectasis; distended proximal and mid small bowel loops measuring up to 4.1 cm. Very little gas is seen in the colon but there is a small amount of gas distal to the ileocolic anastomosis. No free air was identified. The anastomosis appears intact Patient continues to remain afebrile, currently 97.6, pulse ranging from 98- 114; respiratory rate 15 and nonlabored; blood pressure 150/77. SPO2 on room air 93% Lungs: Clear bilaterally despite the chest x-ray finding Abdomen: Diffusely tender but extremely difficult to examine. Bowel sounds are present Urine output 925 mL for calendar day 02/26/18; 700 mL so far today Pathology: Still pending Laboratories: White count has increased to 14.7 with increased neutrophilia to 10.9%; hemoglobin 11.2 with hematocrit 34.4 (significant increase consistent with increased extravascular fluids, nausea/vomiting) PT 12.5, INR 1. Electrolytes show correction of potassium of 3.5, sodium 140, chloride 30, BUN 9, creatinine 0.52. Phosphorus and magnesium also corrected. Impression: Postoperative day #4, status post exploratory celiotomy with right colectomy for an obstructing neoplasm of the ascending colon. Postoperative hypokalemia, hypophosphatemia and hypomagnesemia corrected Worsening pulmonary vascular congestion Postoperative nausea vomiting most likely due to persistent malfunction of the colon. Atrial fibrillation- heart rate labile; will control with IV med Chronic anticoagulated state reversed and stable Plan: NPO; convert all meds to IV Agressive diuresis discussed with patient's family and Hospitalists - will begin TPN to provide calories and protein to promote continued recovery Begin sliding scale coverage of blood sugars once TPN initiated Objective Vital Signs - Last 8 Hours Temp Pulse Resp BP Pulse Ox 02/27/18 12:16 97.6 F 114 15 150/77 93 02/27/18 06:59 98.2 F 98 16 183/87 93 Intake and Output 02/26/18 02/27/1802/27/18 23:59 07:59 15:59 Intake Total 0 / 0 0 / 0 Output Total 450 / 450 550 / 550 150 / 150 Balance -450 / -450 -550 / -550 -150 / -150 Intake: Oral 0 / 0 0 / 0 Output: Catheter 450 / 450 550 / 550 150 / 150 Other: Stool Size Smear Stool Color Brown Weight 72.9 kg Blood Glucose* 140 Patient Weight 02/27/18 23:59 Weight 72.9 kg - Labs 02/27/18 03:00 02/27/18 03:00 Diabetes panel 02/27/18 Range/Units 03:00 Sodium 140 (136-145) mEq/L Potassium 3.5 (3.5-5.1) mEq/L Chloride 103 (98-107) mEq/L Carbon Dioxide 30 H (23-29) mEq/L BUN 9 (8-23) mg/dL Creatinine 0.52 L (0.60-1.20) mg/dL Glucose 153 H (70-105) mg/dL Calcium 8.4 L (8.6-10.3) mg/dL Calcium panel 02/27/18 Range/Units 03:00 Calcium 8.4 L (8.6-10.3) mg/dL Phosphorus 2.7 (2.7-4.5) mg/dL Pituitary panel 02/27/18 Range/Units 03:00 Sodium 140 (136-145) mEq/L Potassium 3.5 (3.5-5.1) mEq/L Chloride 103 (98-107) mEq/L Carbon Dioxide 30 H (23-29) mEq/L BUN 9 (8-23) mg/dL Creatinine 0.52 L (0.60-1.20) mg/dL Glucose 153 H (70-105) mg/dL Calcium 8.4 L (8.6-10.3) mg/dL Adrenal panel 02/27/18 Range/Units 03:00 Sodium 140 (136-145) mEq/L Potassium 3.5 (3.5-5.1) mEq/L Chloride 103 (98-107) mEq/L Carbon Dioxide 30 H (23-29) mEq/L BUN 9 (8-23) mg/dL Creatinine 0.52 L (0.60-1.20) mg/dL Glucose 153 H (70-105) mg/dL Calcium 8.4 L (8.6-10.3) mg/dL - VTE Reasons for not Prescribing Prophylaxis: Medical contraindication (Plan for surgery today) Documentation of Mechanical Device: Intermittent pneumatic compression device Consult Discharge Plan - Plan Referrals: Praneeth Mendieta MD [Non-Partnered Physician] -
[2018-02-27] MEDS ORDERED: Clinimix E 5%-15% SOLUTION 2,000 ML with MVI, adult with vitamin K 10 ML IVC SCH (17:00)
[2018-02-27] MEDS: *HR* Metoprolol 5 MG/5 ML VIAL IVP SCH ×2 (20:34→22:29)
[2018-02-27] MEDS: D5% in 0.45% NACL 1,000 ML IVC SCH (20:35)
[2018-02-27] MEDS: Insulin LISPRO 300 UNITS/3 ML VIAL SQ SCH ×2 (20:38→20:41)
[2018-02-27] MEDS: Furosemide 40 MG/4 ML VIAL IVP SCH (22:25)
[2018-02-28] MEDS: D5% in 0.45% NACL 1,000 ML IVC SCH (02:21)
[2018-02-28] MEDS: Insulin LISPRO 300 UNITS/3 ML VIAL SQ SCH ×7 (02:25→20:02)
[2018-02-28] MEDS: *HR* Metoprolol 5 MG/5 ML VIAL IVP SCH ×4 (02:50→20:00)
[2018-02-28 04:30] LABS: Hematocrit 34.8 % (35.3-44.9); Hemoglobin 11.4 g/dL (11.5-15.4); Mean Corpuscular HGB Conc 32.8 g/dL (31.6-35.5); Mean Corpuscular Hemoglobin 29.6 pg (28.0-33.3); Mean Corpuscular Volume 90.4 fL (83.0-100.0); Platelet Count 314 K/mcL (140-400); Red Blood Count 3.85 M/mcL (3.82-4.97); Red Cell Distribution Width 13.2 % (11.5-14.5)
[2018-02-28 04:52] LABS: BUN/Creatinine Ratio 24 (6-26); Blood Urea Nitrogen 13 mg/dL (8-23); Calcium 8.3 mg/dL (8.6-10.3); Carbon Dioxide 31 mEq/L (23-29); Chloride 101 mEq/L (98-107); Glucose 151 mg/dL (70-105); Magnesium 1.7 mg/dL (1.6-2.6); Osmolality,Calculated 293 (280-300); Phosphorous 2.2 mg/dL (2.7-4.5); Sodium 140 mEq/L (136-145); Triglycerides 203 mg/dL (< 150); eGFR For African Americans > 60 (> 60); eGFR For Non-African Americans > 60 (> 60)
[2018-02-28] MEDS: Pantoprazole 40 MG VIAL IVP SCH (07:54)
[2018-02-28] MEDS: Furosemide 40 MG/4 ML VIAL IVP SCH ×2 (07:54→16:44)
--- NOTE | 2018-02-28 08:24 | Internal Med Progress Note ---
Date of Encounter: 02/28/18 Time of Encounter: 08:00 - Assessment and plan (1) Pulmonary edema Current Visit: Yes Status: Acute Assessment and plan: Improving with current diuresis. Monitoring clinical status and renal function. Pollock for I/Os. Qualifiers: Chronicity: acute Qualified Code(s): J81.0 - Acute pulmonary edema (2) Hypokalemia Current Visit: Yes Status: Acute Assessment and plan: Replace today. (3) Hypophosphatemia Current Visit: Yes Status: Acute Assessment and plan: Replace as needed. (4) Ileus following gastrointestinal surgery Current Visit: Yes Status: Acute Assessment and plan: Has developed post op ileus. Currently NPO. Receiving TPN and tolerating this at this time. (5) Hypertension Current Visit: Yes Status: Chronic Assessment and plan: - scheduled IV metoprolol - IV hydralazine PRN Qualifiers: Hypertension type: essential hypertension Qualified Code(s): I10 - Essential (primary) hypertension (6) Atrial fibrillation Current Visit: Yes Status: Chronic Assessment and plan: Hx of Afib [id number]: 7 HAS-BLED: 4 Has received 10 units FFP since 02/20/18 - Continue metoprolol and digoxin - SCDs for now, continue to hold warfarin Qualifiers: Atrial fibrillation type: chronic Qualified Code(s): I48.2 - Chronic atrial fibrillation (7) Large bowel obstruction Current Visit: Yes Status: Acute Assessment and plan: POD #5 s/p right colectomy for obstructing mass, likely neoplastic, in the ascending colon See plan for colonic mass (8) Colonic mass Current Visit: Yes Status: Acute Assessment and plan: POD #5 s/p right colectomy for obstructing mass, likely neoplastic, in the ascending colon CT abdomen pelvis showing evidence of high-grade obstruction of small and large bowel by large circumferential colonic mass; dilation of large bowel measuring up to 9.7 cm Path report for lymph node and colon surgical specimens pending (9) Coagulopathy Current Visit: Yes Status: Acute Assessment and plan: Recheck INR tomorrow. (10) DVT prophylaxis Current Visit: Yes Status: Acute Assessment and plan: SCDs for now. - Time Spent With Patient Total time spent is greater than 50% in coordination of care (as documented) at patient's floor/unit and/or counseling patient: - Subjective Interval history: Ms Galeana is currently admitted for acute bowel obstruction due to colon mass. She is s/p resection and has post op ileus. She remains moderate to high risk due to potential for worsening clinical status. Ms Galeana appears to be comfortable at this time. No fever. Now NPO due to ileus. Breathing appears to be improved with diuresis. - Constitutional Vitals: Temp Pulse Resp BP Pulse Ox 97.8 F 81 18 138/71 94 02/28/18 08:07 02/28/18 08:07 02/28/18 08:07 02/28/18 08:07 02/28/18 08:07 General appearance: Present: cooperative Exam: Alert. - Head Head exam: Present: normocephalic - Eye Eye exam: Present: conjuntiva pink - ENT ENT exam: Present: mucous membranes dry - Respiratory Respiratory exam: Present: rales. Absent: rhonchi, wheezes Additional comments: Few rales RUL area. - Cardiovascular Cardiovascular exam: Present: distant heart sounds. Absent: tachycardia - GI/Abdominal GI/Abdominal exam: Present: hypoactive bowel sounds, soft - Extremities Exam Extremities exam: Present: warm. Absent: tenderness - Neurological Exam Neurological exam: Present: alert, speech deficit - Skin Skin exam: Present: dry, warm Internal Medicine: Result - Labs CBC & Chem 7: 02/28/18 04:15 02/28/18 04:15 Labs: Short CBC 02/28/18 Range/Units 04:15 WBC 17.3 H (4.3-11.1) K/mcL Hgb 11.4 L (11.5-15.4) g/dL Hct 34.8 L (35.3-44.9) % Plt Count 314 (140-400) K/mcL BMP 02/28/18 04:15 Sodium 140 Potassium 3.0 L Chloride 101 Carbon Dioxide 31 H BUN 13 Creatinine 0.55 L Glucose 151 H Calcium 8.3 L - ABG Interpretation ABG results: PT/INR, D-dimer PT 12.5 Seconds (9.4-12.1) H 02/27/18 03:00 - Impressions Impressions Chest/Abdomen X-ray 02/27/18 10:40 IMPRESSION: 1. Increasing pulmonary edema pattern with moderate subpulmonic left-sided pleural effusion compared to the previous exam. 2. Postoperative ileus pattern appears slightly worse than on the previous exam. No free air is identified. No NG tube is seen. D/ / Marcio Cruz MD / Marcio Cruz MD Interpreting Provider: Marcio Cruz MD - VTE Reasons for not Prescribing Prophylaxis: Medical contraindication (Plan for surgery today) Documentation of Mechanical Device: Intermittent pneumatic compression device Consult Discharge Plan - Plan Referrals: Praneeth Mendieta MD [Non-Partnered Physician] -
[2018-02-28] MEDS: *HR* Digoxin 0.5 MG/2 ML AMPUL IVP SCH (10:22)
[2018-02-28] MEDS ORDERED: OXYCODONE Oral CONC 10 MG/0.5 ML ORAL.SYG SL PRN (11:04)
[2018-02-28] MEDS ORDERED: Clinimix E 5%-15% SOLUTION 2,000 ML with MVI, adult with vitamin K 10 ML IVC SCH ×3 (11:05→17:00)
--- NOTE | 2018-02-28 11:15 | General Surgery Progress Note ---
Date of Encounter: 02/28/18 Time of Encounter: 11:07 Subjective Narrative: General Surgery - POD # 5 Patient remains afebrile, maximum temperature 99.0; heart rate controlled, ranging 72-102; respiratory rate 16-18, blood pressure stable at 134/78. Lungs: Clear; no obvious pain on deep inspiration Abdomen: Soft; tenderness but it is difficult to gauge due to the patient's inability to communicate effectively; I can palpate/manipulate the abdomen were deeply with less pain response by the patient. Bowel sounds are present. Patient has begun to move her bowels; several diarrheal bowel movements described overnight. Urine output: 2600 mL this calendar day in response to Lasix diuresis Laboratories: White count has increased to 17.3; hemoglobin 11.4, hematocrit 34.8; platelet count 314,000. Induced by the notable for potassium of 3.1 consistent with the Lasix diuresis; BUN 13, creatinine 0.55. Phosphorus has fallen to 2.2, magnesium 1.7. 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 Pathology is still pending. Effective diuresis with twice a day Lasix to address the patient 's increased pulmonary congestion and apparent fluid overload. Bowel activity has begun; diarrhea is likely due to resolution of the bowel obstruction with mobilization of the GI contents proximal to the previous obstruction. We will monitor for continued diarrhea suggestive of C. difficile colitis Atrial fibrillation - status stable, rate appears improved with IV metoprolol Plan: Continue TPN; increase as tolerated as recommended by dietary Continue twice a day furosemide; reduce to once daily tomorrow Maintain Pollock during this aggressive diuresis Correct electrolyte abnormalities which are most likely due to the Lasix diuresis Objective Vital Signs - Last 8 Hours Temp Pulse Resp BP Pulse Ox 02/28/18 10:51 97.4 F L 102 16 134/78 95 02/28/18 08:07 97.8 F 81 18 138/71 94 02/28/18 04:06 97.9 F 72 18 154/78 94 Intake and Output 02/27/18 02/28/18 02/28/18 23:59 07:59 15:59 Intake Total 0 / 0 1181 / 1181 0 / 0 Output Total 150 / 150 1100 / 1100 1500 / 1500 Balance -150 / -150 81 / 81 -1500 / -1500 Intake: IV Fluids 1181 / 1181 D5% And 0.45% Nacl 1000 Ml Bag 600 / 600 1,000 ML @ 50 mls/hr IVC .Q20H MEIR Rx#:[id number] Clinimix E 5%-15% SOLUTION 2, 411 / 411 000 ML @ 40 mls/hr IVC .Q24H MEIR with M.v.i. Adult 10 ml Rx# :[id number] Intralipid 20% 250 ML @ 21 mls/ 170 / 170 hr IVPB DAILY@1700 MEIR Rx#: [id number] Oral 0 / 0 0 / 0 0 / 0 Output: Urine 150 / 150 Catheter 1100 / 1100 1500 / 1500 Other: Stool Size Moderate Large Large Stool Consistency liquid liquid liquid Stool Characteristics Normal for Patient Stool Color Brown Brown Brown # Voids 3 # Bowel Movements 2 # Bowel Movement Diapers 2 Weight 71.8 kg Blood Glucose* 136 130 163 Patient Weight 02/28/18 23:59 Weight 71.8 kg - Labs 02/28/18 04:15 02/28/18 04:15 Diabetes panel 02/28/18 Range/Units 04:15 Sodium 140 (136-145) mEq/L Potassium 3.0 L (3.5-5.1) mEq/L Chloride 101 (98-107) mEq/L Carbon Dioxide 31 H (23-29) mEq/L BUN 13 (8-23) mg/dL Creatinine 0.55 L (0.60-1.20) mg/dL Glucose 151 H (70-105) mg/dL Calcium 8.3 L (8.6-10.3) mg/dL Triglycerides 203 H (< 150) mg/dL Calcium panel 02/28/18 Range/Units 04:15 Calcium 8.3 L (8.6-10.3) mg/dL Phosphorus 2.2 L (2.7-4.5) mg/dL Pituitary panel 02/28/18 Range/Units 04:15 Sodium 140 (136-145) mEq/L Potassium 3.0 L (3.5-5.1) mEq/L Chloride 101 (98-107) mEq/L Carbon Dioxide 31 H (23-29) mEq/L BUN 13 (8-23) mg/dL Creatinine 0.55 L (0.60-1.20) mg/dL Glucose 151 H (70-105) mg/dL Calcium 8.3 L (8.6-10.3) mg/dL Adrenal panel 02/28/18 Range/Units 04:15 Sodium 140 (136-145) mEq/L Potassium 3.0 L (3.5-5.1) mEq/L Chloride 101 (98-107) mEq/L Carbon Dioxide 31 H (23-29) mEq/L BUN 13 (8-23) mg/dL Creatinine 0.55 L (0.60-1.20) mg/dL Glucose 151 H (70-105) mg/dL Calcium 8.3 L (8.6-10.3) mg/dL - VTE Reasons for not Prescribing Prophylaxis: Medical contraindication (Plan for surgery today) Documentation of Mechanical Device: Intermittent pneumatic compression device Consult Discharge Plan - Plan Referrals: Praneeth Mendieta MD [Non-Partnered Physician] -
[2018-02-28] MEDS: metroNIDAZOLE 500 MG TABLET PO SCH ×3 (12:08→23:02)
[2018-03-01] MEDS: Insulin LISPRO 300 UNITS/3 ML VIAL SQ SCH ×5 (01:56→17:08)
[2018-03-01] MEDS: *HR* Metoprolol 5 MG/5 ML VIAL IVP SCH ×4 (01:56→18:44)
[2018-03-01 02:30] LABS: Hematocrit 33.1 % (35.3-44.9); Hemoglobin 10.9 g/dL (11.5-15.4); Mean Corpuscular HGB Conc 32.9 g/dL (31.6-35.5); Mean Corpuscular Hemoglobin 29.9 pg (28.0-33.3); Mean Corpuscular Volume 90.7 fL (83.0-100.0); Mean Platelet Volume 10.3 fL (9.4-12.4); Platelet Count 280 K/mcL (140-400); Red Blood Count 3.65 M/mcL (3.82-4.97); Red Cell Distribution Width 13.2 % (11.5-14.5)
[2018-03-01 02:39] LABS: BUN/Creatinine Ratio 35 (6-26); Blood Urea Nitrogen 19 mg/dL (8-23); Calcium 8.1 mg/dL (8.6-10.3); Carbon Dioxide 31 mEq/L (23-29); Chloride 101 mEq/L (98-107); Glucose 144 mg/dL (70-105); Magnesium 1.7 mg/dL (1.6-2.6); Osmolality,Calculated 293 (280-300); Phosphorous 3.8 mg/dL (2.7-4.5); Potassium 2.8 mEq/L (3.5-5.1); Sodium 139 mEq/L (136-145); eGFR For African Americans > 60 (> 60); eGFR For Non-African Americans > 60 (> 60)
[2018-03-01] MEDS: Furosemide 40 MG/4 ML VIAL IVP SCH (07:49)
[2018-03-01] MEDS: metroNIDAZOLE 500 MG TABLET PO SCH ×3 (07:49→21:56)
[2018-03-01] MEDS: Pantoprazole 40 MG VIAL IVP SCH (07:49)
[2018-03-01] MEDS: *HR* Digoxin 0.5 MG/2 ML AMPUL IVP SCH (09:38)
--- NOTE | 2018-03-01 10:57 | General Surgery Progress Note ---
Date of Encounter: 03/01/18 Time of Encounter: 10:49 Subjective Narrative: General Surgery - POD #6 Afebrile; vital signs stable, pulse ranged 70-74; respiratory rate 18; blood pressure 152/77. Patient seems much more awake and alert; more responsive to verbal stimulus/ command Lungs: Clear Cardiac: Irregular rate consistent with atrial fibrillation Abdomen: Soft, less obvious tenderness. Active bowel sounds. No obvious intra-abdominal masses, no rebound. Diarrhea persists; number of liquid bowel movements appears to have diminished. Urine output: 4300 mL for calendar day 02/28/18; 500 mL so far today Laboratories: Leukocytosis is improved to 15.6; hemoglobin 10.9, hematocrit 33.1 ; platelet count 280,000. 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 Pathology confirming the clinical diagnosis still pending Postoperative diarrhea - likely postobstructive however cannot exclude C. difficile colitis. Metronidazole has been initiated Hypokalemia - replacement therapy in progress Severe protein calorie deficiency - due to prolonged disease/obstruction and postoperative bowel dysfunction. TPN in progress; with improvement in bowel function will allow full liquid diet Atrial fibrillation- status post stable; hemodynamically stable. Objective Vital Signs - Last 8 Hours Temp Pulse Resp BP Pulse Ox 03/01/18 06:19 98.0 F 74 18 152/77 93 03/01/18 04:00 98.2 F 70 15 134/81 93 Intake and Output 02/28/18 03/01/18 03/01/18 23:59 07:59 15:59 Intake Total 0 / 0 250 / 250 Output Total 1700 / 1700 100 / 100 400 / 400 Balance -1700 / -1700 150 / 150 -400 / -400 Intake: IV Fluids 250 / 250 Intralipid 20% 250 ML @ 21 mls/ 250 / 250 hr IVPB DAILY@1700 ME[facility] Rx#: [id number] Oral 0 / 0 0 / 0 Output: Catheter 1700 / 1700 100 / 100 400 / 400 Other: Meal NPO Stool Size Small Moderate Stool Consistency loose liquid soft Stool Color Brown Brown # Bowel Movements 1 Blood Glucose* 110 162 115 - Labs 03/01/18 01:37 03/01/18 01:37 Diabetes panel 03/01/18 Range/Units 01:37 Sodium 139 (136-145) mEq/L Potassium 2.8 L (3.5-5.1) mEq/L Chloride 101 (98-107) mEq/L Carbon Dioxide 31 H (23-29) mEq/L BUN 19 (8-23) mg/dL Creatinine 0.54 L (0.60-1.20) mg/dL Glucose 144 H (70-105) mg/dL Calcium 8.1 L (8.6-10.3) mg/dL Calcium panel 03/01/18 Range/Units 01:37 Calcium 8.1 L (8.6-10.3) mg/dL Phosphorus 3.8 (2.7-4.5) mg/dL Pituitary panel 03/01/18 Range/Units 01:37 Sodium 139 (136-145) mEq/L Potassium 2.8 L (3.5-5.1) mEq/L Chloride 101 (98-107) mEq/L Carbon Dioxide 31 H (23-29) mEq/L BUN 19 (8-23) mg/dL Creatinine 0.54 L (0.60-1.20) mg/dL Glucose 144 H (70-105) mg/dL Calcium 8.1 L (8.6-10.3) mg/dL Adrenal panel 03/01/18 Range/Units 01:37 Sodium 139 (136-145) mEq/L Potassium 2.8 L (3.5-5.1) mEq/L Chloride 101 (98-107) mEq/L Carbon Dioxide 31 H (23-29) mEq/L BUN 19 (8-23) mg/dL Creatinine 0.54 L (0.60-1.20) mg/dL Glucose 144 H (70-105) mg/dL Calcium 8.1 L (8.6-10.3) mg/dL - VTE Reasons for not Prescribing Prophylaxis: Medical contraindication (Plan for surgery today) Documentation of Mechanical Device: Intermittent pneumatic compression device Consult Discharge Plan - Plan Referrals: Praneeth Mendieta MD [Non-Partnered Physician] -
[2018-03-01] MEDS: Clinimix E 5%-15% SOLUTION 2,000 ML with MVI, adult with vitamin K 10 ML IVC SCH (16:59)
--- NOTE | 2018-03-01 17:18 | Internal Med Progress Note ---
Date of Encounter: 03/01/18 Time of Encounter: 08:10 - Assessment and plan (1) Pulmonary edema Current Visit: Yes Status: Acute Assessment and plan: Improving. Lasix decreased to daily today. Qualifiers: Chronicity: acute Qualified Code(s): J81.0 - Acute pulmonary edema (2) Hypokalemia Current Visit: Yes Status: Acute Assessment and plan: Persists today. Replace with IV and oral. (3) Hypophosphatemia Current Visit: Yes Status: Resolved Assessment and plan: Replace as needed. (4) Ileus following gastrointestinal surgery Current Visit: Yes Status: Acute Assessment and plan: Appears to be improving. Full liquids started today. Continue TPN for now. (5) Hypertension Current Visit: Yes Status: Chronic Assessment and plan: - scheduled IV metoprolol - IV hydralazine PRN Qualifiers: Hypertension type: essential hypertension Qualified Code(s): I10 - Essential (primary) hypertension (6) Atrial fibrillation Current Visit: Yes Status: Chronic Assessment and plan: Hx of Afib [id number]: 7 HAS-BLED: 4 Has received 10 units FFP since 02/20/18 - Continue metoprolol and digoxin - SCDs for now, continue to hold warfarin Qualifiers: Atrial fibrillation type: chronic Qualified Code(s): I48.2 - Chronic atrial fibrillation (7) Large bowel obstruction Current Visit: Yes Status: Acute Assessment and plan: POD #5 s/p right colectomy for obstructing mass, likely neoplastic, in the ascending colon See plan for colonic mass (8) Colonic mass Current Visit: Yes Status: Acute Assessment and plan: POD #5 s/p right colectomy for obstructing mass, likely neoplastic, in the ascending colon CT abdomen pelvis showing evidence of high-grade obstruction of small and large bowel by large circumferential colonic mass; dilation of large bowel measuring up to 9.7 cm Path report for lymph node and colon surgical specimens pending (9) Coagulopathy Current Visit: Yes Status: Resolved Assessment and plan: Recheck INR tomorrow. (10) DVT prophylaxis Current Visit: Yes Status: Acute Assessment and plan: SCDs for now. - Time Spent With Patient Total time spent is greater than 50% in coordination of care (as documented) at patient's floor/unit and/or counseling patient: - Subjective Interval history: Ms Galeana is currently admitted for acute bowel obstruction due to colon mass. She is s/p resection and has post op ileus. She remains moderate to high risk due to potential for worsening clinical status. Ms Galeana is more alert and comfortable today. She responded that she is doing better. No fever. Less issues with breathing. - Constitutional Vitals: Temp Pulse Resp BP Pulse Ox 97.6 F 76 14 151/73 94 03/01/18 13:19 03/01/18 13:19 03/01/18 13:19 03/01/18 13:19 03/01/18 13:19 General appearance: Present: cooperative - Head Head exam: Present: normocephalic - Eye Eye exam: Present: conjuntiva pink - ENT ENT exam: Present: mucous membranes dry - Respiratory Respiratory exam: Present: CTAB Additional comments: Clear anteriorly and laterally bilaterally. - Cardiovascular Cardiovascular exam: Present: distant heart sounds. Absent: tachycardia - GI/Abdominal GI/Abdominal exam: Present: hypoactive bowel sounds, soft, tenderness - Extremities Exam Extremities exam: Present: warm. Absent: tenderness - Neurological Exam Neurological exam: Present: alert, speech deficit - Skin Skin exam: Present: dry, warm Internal Medicine: Result - Labs CBC & Chem 7: 03/01/18 01:37 03/01/18 14:00 Labs: Short CBC 03/01/18 Range/Units 01:37 WBC 15.6 H (4.3-11.1) K/mcL Hgb 10.9 L (11.5-15.4) g/dL Hct 33.1 L (35.3-44.9) % Plt Count 280 (140-400) K/mcL [facility] 03/01/18 03/01/18 01:37 14:00 Sodium 139 Potassium 2.8 L 3.6 D Chloride 101 Carbon Dioxide 31 H BUN 19 Creatinine 0.54 L Glucose 144 H Calcium 8.1 L - ABG Interpretation ABG results: PT/INR, D-dimer PT 12.5 Seconds (9.4-12.1) H 02/27/18 03:00 - VTE Reasons for not Prescribing Prophylaxis: Medical contraindication (Plan for surgery today) Documentation of Mechanical Device: Intermittent pneumatic compression device Consult Discharge Plan - Plan Referrals: Praneeth Mednieta MD [Non-Partnered Physician] -
[2018-03-02] MEDS: Insulin LISPRO 300 UNITS/3 ML VIAL SQ SCH ×7 (01:56→20:11)
[2018-03-02] MEDS: *HR* Metoprolol 5 MG/5 ML VIAL IVP SCH ×2 (01:59→06:39)
[2018-03-02 05:21] LABS: BUN/Creatinine Ratio 49 (6-26); Blood Urea Nitrogen 25 mg/dL (8-23); Carbon Dioxide 28 mEq/L (23-29); Chloride 104 mEq/L (98-107); Glucose 147 mg/dL (70-105); Magnesium 1.8 mg/dL (1.6-2.6); Osmolality,Calculated 291 (280-300); Phosphorous 2.5 mg/dL (2.7-4.5); Potassium 4.1 mEq/L (3.5-5.1); Sodium 137 mEq/L (136-145); eGFR For African Americans > 60 (> 60); eGFR For Non-African Americans > 60 (> 60)
[2018-03-02 07:07] LABS: Alanine Aminotransferase 15 Units/L (7-52); Albumin 2.8 g/dL (3.5-5.7); Albumin/Globulin Ratio 1.1 (1.1-2.2); Alkaline Phosphatase 70 Units/L (34-104); Aspartate Amino Transferase 18 Units/L (13-39); BUN/Creatinine Ratio 44 (6-26); Bilirubin,Total 0.5 mg/dL (0.3-1.0); Blood Urea Nitrogen 25 mg/dL (8-23); Calcium 8.6 mg/dL (8.6-10.3); Carbon Dioxide 24 mEq/L (23-29); Chloride 104 mEq/L (98-107); Globulin 2.6 g/dL (2.4-3.5); Glucose 199 mg/dL (70-105); Osmolality,Calculated 294 (280-300); Potassium 4.5 mEq/L (3.5-5.1); Sodium 137 mEq/L (136-145); Total Protein 5.4 g/dL (6.4-8.9); eGFR For African Americans > 60 (> 60); eGFR For Non-African Americans > 60 (> 60)
[2018-03-02 07:37] LABS: INR 1.2; Prothrombin Time 12.6 Seconds (9.4-12.1)
--- NOTE | 2018-03-02 08:10 | Internal Med Progress Note ---
Date of Encounter: 03/02/18 Time of Encounter: 08:10 - Assessment and plan (1) Leukocytosis Current Visit: Yes Status: Acute Assessment and plan: Has persistent leukocytosis. CXR questionable infiltrate versus atelectasis. No fever noted. Will recheck tomorrow and consider further work up for source if persists. Qualifiers: Leukocytosis type: unspecified Qualified Code(s): D72.829 - Elevated white blood cell count, unspecified (2) Pulmonary edema Current Visit: Yes Status: Resolved Assessment and plan: Currently on Lasix daily. Repeat 2v CXR today to eval fluid status as well as any other process. Qualifiers: Chronicity: acute Qualified Code(s): J81.0 - Acute pulmonary edema (3) Hypokalemia Current Visit: Yes Status: Resolved Assessment and plan: Improved today (4) Hypophosphatemia Current Visit: Yes Status: Resolved (5) Ileus following gastrointestinal surgery Current Visit: Yes Status: Acute Assessment and plan: Tolerating PO diet at this time. Weaning off TPN. (6) Hypertension Current Visit: Yes Status: Chronic Assessment and plan: Meds changing to PO now that has diet Appears to be controlled. Qualifiers: Hypertension type: essential hypertension Qualified Code(s): I10 - Essential (primary) hypertension (7) Atrial fibrillation Current Visit: Yes Status: Chronic Assessment and plan: Hx of Afib [id number]: 7 HAS-BLED: 4 Has received 10 units FFP since 02/20/18 Rate controlled. Will need restart Warfarin when OK with surgery. Qualifiers: Atrial fibrillation type: chronic Qualified Code(s): I48.2 - Chronic atrial fibrillation (8) Large bowel obstruction Current Visit: Yes Status: Resolved (9) Colonic mass Current Visit: Yes Status: Acute Assessment and plan: POD #5 s/p right colectomy for obstructing mass, likely neoplastic, in the ascending colon CT abdomen pelvis showing evidence of high-grade obstruction of small and large bowel by large circumferential colonic mass; dilation of large bowel measuring up to 9.7 cm Path report for lymph node and colon surgical specimens still pending. (10) Aphasia as late effect of stroke Current Visit: Yes Status: Chronic (11) DVT prophylaxis Current Visit: Yes Status: Acute Assessment and plan: SCDs for now. - Time Spent With Patient Total time spent is greater than 50% in coordination of care (as documented) at patient's floor/unit and/or counseling patient: - Subjective Interval history: Ms Galeana is currently admitted for acute bowel obstruction due to colon mass. She is s/p resection and has post op ileus. She remains moderate to high risk due to potential for worsening clinical status. Ms Galeana seems to be a little more dyspneic today. She just woke up. No fever. WBC remains elevated. Tolerating current diet. - Constitutional Vitals: Temp Pulse Resp BP Pulse Ox 98.6 F 71 15 160/82 95 03/02/18 03:32 03/02/18 03:32 03/02/18 03:32 03/02/18 03:32 03/02/18 03:32 General appearance: Present: cooperative - Head Head exam: Present: normocephalic - Eye Eye exam: Present: conjuntiva pink - ENT ENT exam: Present: mucous membranes dry - Respiratory Respiratory exam: Present: rhonchi. Absent: rales, wheezes - Cardiovascular Cardiovascular exam: Present: distant heart sounds. Absent: tachycardia - GI/Abdominal GI/Abdominal exam: Present: hypoactive bowel sounds, soft - Extremities Exam Extremities exam: Present: warm. Absent: tenderness - Neurological Exam Neurological exam: Present: alert, speech deficit - Skin Skin exam: Present: dry, warm Internal Medicine: Result - Labs CBC & Chem 7: 03/02/18 04:00 03/02/18 05:43 Labs: BMP 03/01/18 03/02/18 03/02/18 14:00 04:00 05:43 Sodium 137 137 Potassium 3.6 D 4.1 4.5 Chloride 104 104 Carbon Dioxide 28 24 BUN 25 H 25 H Creatinine 0.51 L 0.57 L Glucose 147 H 199 H Calcium 9.0 8.6 Liver Function 03/02/18 Range/Units 05:43 Total Bilirubin 0.5 (0.3-1.0) mg/dL AST 18 (13-39) Units/L ALT 15 (7-52) Units/L Alkaline Phosphatase 70 (34-104) Units/L Albumin 2.8 L (3.5-5.7) g/dL - ABG Interpretation ABG results: PT/INR, D-dimer PT 12.6 Seconds (9.4-12.1) H 03/02/18 04:00 - VTE Reasons for not Prescribing Prophylaxis: Medical contraindication (Plan for surgery today) Documentation of Mechanical Device: Intermittent pneumatic compression device Consult Discharge Plan - Plan Referrals: Praneeth Mendieta MD [Non-Partnered Physician] -
[2018-03-02 08:34] LABS: Basophils # 0.1 K/mcL (0.0-0.2); Basophils % 0.4 %; Eosinophils # 0.4 K/mcL (0.0-0.6); Eosinophils % 2.4 %; Hematocrit 32.8 % (35.3-44.9); Hemoglobin 10.6 g/dL (11.5-15.4); Immature Granulocytes % 2.2 % (0-4); Lymphocytes # 2.1 K/mcL (0.6-4.6); Lymphocytes % 11.6 %; Mean Corpuscular HGB Conc 32.3 g/dL (31.6-35.5); Mean Corpuscular Hemoglobin 29.9 pg (28.0-33.3); Mean Corpuscular Volume 92.4 fL (83.0-100.0); Mean Platelet Volume 10.7 fL (9.4-12.4); Monocytes # 1.7 K/mcL (0.0-1.3); Monocytes % 9.3 %; Neutrophils # 13.5 K/mcL (1.6-8.9); Nucleated Red Blood Cells 0.1 /100 WBC (0); Platelet Count 264 K/mcL (140-400); Red Blood Count 3.55 M/mcL (3.82-4.97); Red Cell Distribution Width 13.7 % (11.5-14.5); Segmented Neutrophils % 74.1 %
[2018-03-02] MEDS ORDERED: Furosemide 40 MG/4 ML VIAL IVP SCH (09:00)
[2018-03-02] MEDS: Pantoprazole 40 MG VIAL IVP SCH (09:10)
[2018-03-02] MEDS: metroNIDAZOLE 500 MG TABLET PO SCH ×3 (09:10→20:11)
[2018-03-02] MEDS: *HR* Digoxin 0.5 MG/2 ML AMPUL IVP SCH (09:10)
--- NOTE | 2018-03-02 12:50 | General Surgery Progress Note ---
Date of Encounter: 03/02/18 Time of Encounter: 12:42 Subjective Patient reports: tolerating liquids well Narrative: General Surgery - POD #7 Maximum temperature 99.0; pulse 7186; respiratory rate 15 - 18; blood pressure 129/74. SPO2 on room air 96% Patient appears to be tolerating full liquids well; dietary intake is depressed however this may be due to TPN No reported nausea or vomiting. Lungs: Diminished breath sounds left base otherwise clear Chest x-ray: Stable, persistent left basilar opacity consistent with small to moderate size left pleural effusion. Cardiac: Rate irregular Abdomen: Soft, incisional tenderness but active bowel sounds. Midline incision appears intact, clean and dry. Urine output 1350 mL for calendar day 03/01/2018; 1650 mL so far today Bowel movements now described as moderate, soft, formed. Laboratories: Leukocytosis has increased to 18.2 with 13.5% neutrophils. Electrolytes show stable sodium of 137, potassium 4.5, BUN has risen to 25; creatinine 0.57. 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 Increasing leukocytosis of uncertain etiology. Remove Pollock; monitor for central venous line infection Diuresis for pulmonary congestion has been effective; stable, persistent left pleural effusion with associated atelectasis or infiltrate The pulmonary findings may be the source of the patient's leukocytosis Bowels appear to be functioning; pa replace phosphorus tient is tolerating a full liquid diet - advanced to regular diet Total parenteral nutrition being tapered and will be discontinued with completion of the current bag Discontinue IV meds; convert to oral Hypophosphatemia- Replacement ordered Recheck CBC in a.m. Objective Vital Signs - Last 8 Hours Temp Pulse Resp BP Pulse Ox 03/02/18 10:45 98.5 F 86 15 129/74 96 03/02/18 08:00 98.2 F 76 18 153/83 96 Intake and Output 03/01/18 03/02/18 03/02/18 23:59 07:59 15:59 Intake Total 1456 / 1456 240 / 240 Output Total 200 / 200 50 / 50 1600 / 1600 Balance 1256 / 1256 190 / 190 -1600 / -1600 Intake: IV Fluids 1216 / 1216 Clinimix E 5%-15% SOLUTION 2, 1215 000 ML @ 50 mls/hr IVC .Q24H MEIR with M.v.i. Adult 10 ml Rx# :[id number] Oral 240 / 240 240 / 240 Output: Catheter 200 / 200 50 / 50 1600 / 1600 Other: Meal Dinner Percent of Meal Consumed 35% Stool Size Small Moderate Stool Consistency loose soft liquid formed soft Stool Color Brown Brown # Bowel Movement Diapers 1 1 Weight 71.713 kg Blood Glucose* 157 202 112 Patient Weight 03/02/18 23:59 Weight 71.713 kg - Labs 03/02/18 04:00 03/02/18 05:43 Diabetes panel 03/01/18 03/02/18 03/02/18 Range/Units 14:00 04:00 05:43 Sodium 137 137 (136-145) mEq/L Potassium 3.6 D 4.1 4.5 (3.5-5.1) mEq/L Chloride 104 104 (98-107) mEq/L Carbon Dioxide 28 24 (23-29) mEq/L BUN 25 H 25 H (8-23) mg/dL Creatinine 0.51 L 0.57 L (0.60-1.20) mg/dL Glucose 147 H 199 H (70-105) mg/dL Calcium 9.0 8.6 (8.6-10.3) mg/dL AST 18 (13-39) Units/L ALT 15 (7-52) Units/L Alkaline Phosphatase 70 (34-104) Units/L Albumin 2.8 L (3.5-5.7) g/dL Calcium panel 03/02/18 03/02/18 Range/Units 04:00 05:43 Calcium 9.0 8.6 (8.6-10.3) mg/dL Phosphorus 2.5 L (2.7-4.5) mg/dL Albumin 2.8 L (3.5-5.7) g/dL Pituitary panel 03/01/18 03/02/18 03/02/18 Range/Units 14:00 04:00 05:43 Sodium 137 137 (136-145) mEq/L Potassium 3.6 D 4.1 4.5 (3.5-5.1) mEq/L Chloride 104 104 (98-107) mEq/L Carbon Dioxide 28 24 (23-29) mEq/L BUN 25 H 25 H (8-23) mg/dL Creatinine 0.51 L 0.57 L (0.60-1.20) mg/dL Glucose 147 H 199 H (70-105) mg/dL Calcium 9.0 8.6 (8.6-10.3) mg/dL Adrenal panel 03/01/18 03/02/18 03/02/18 Range/Units 14:00 04:00 05:43 Sodium 137 137 (136-145) mEq/L Potassium 3.6 D 4.1 4.5 (3.5-5.1) mEq/L Chloride 104 104 (98-107) mEq/L Carbon Dioxide 28 24 (23-29) mEq/L BUN 25 H 25 H (8-23) mg/dL Creatinine 0.51 L 0.57 L (0.60-1.20) mg/dL Glucose 147 H 199 H (70-105) mg/dL Calcium 9.0 8.6 (8.6-10.3) mg/dL Total Bilirubin 0.5 (0.3-1.0) mg/dL AST 18 (13-39) Units/L ALT 15 (7-52) Units/L Alkaline Phosphatase 70 (34-104) Units/L Albumin 2.8 L (3.5-5.7) g/dL - VTE Reasons for not Prescribing Prophylaxis: Medical contraindication (Plan for surgery today) Documentation of Mechanical Device: Intermittent pneumatic compression device Consult Discharge Plan - Plan Referrals: Praneeth Mendieta MD [Non-Partnered Physician] -
[2018-03-02] MEDS: Clinimix E 5%-15% SOLUTION 2,000 ML with MVI, adult with vitamin K 10 ML IVC SCH (17:15)
[2018-03-02] MEDS: Metoprolol XL (24 HR) Succ 50 MG TAB.ER.24H PO SCH (20:11)
[2018-03-02] MEDS ORDERED: Metoprolol 100 MG TABLET PO SCH (21:00)
[2018-03-03] MEDS: Insulin LISPRO 300 UNITS/3 ML VIAL SQ SCH ×4 (00:56→13:21)
[2018-03-03 05:55] LABS: Basophils # 0.1 K/mcL (0.0-0.2); Basophils % 0.4 %; Eosinophils # 0.4 K/mcL (0.0-0.6); Eosinophils % 2.2 %; Hematocrit 35.5 % (35.3-44.9); Hemoglobin 11.6 g/dL (11.5-15.4); Immature Granulocytes % 1.9 % (0-4); Lymphocytes # 2.6 K/mcL (0.6-4.6); Lymphocytes % 13.1 %; Mean Corpuscular HGB Conc 32.7 g/dL (31.6-35.5); Mean Corpuscular Hemoglobin 29.7 pg (28.0-33.3); Mean Platelet Volume 10.6 fL (9.4-12.4); Monocytes # 2.4 K/mcL (0.0-1.3); Monocytes % 12.2 %; Nucleated Red Blood Cells 0.1 /100 WBC (0); Platelet Count 247 K/mcL (140-400); Red Cell Distribution Width 14.3 % (11.5-14.5); Segmented Neutrophils % 70.2 %
[2018-03-03 06:24] LABS: BUN/Creatinine Ratio 40 (6-26); Blood Urea Nitrogen 23 mg/dL (8-23); Calcium 8.7 mg/dL (8.6-10.3); Carbon Dioxide 24 mEq/L (23-29); Chloride 104 mEq/L (98-107); Glucose 112 mg/dL (70-105); Magnesium 1.7 mg/dL (1.6-2.6); Osmolality,Calculated 290 (280-300); Potassium 4.7 mEq/L (3.5-5.1); Sodium 138 mEq/L (136-145); eGFR For African Americans > 60 (> 60); eGFR For Non-African Americans > 60 (> 60)
[2018-03-03] MEDS ORDERED: *HR* Alteplase (Cathflo) 2 MG VIAL IVP ONE ×2 (08:05→12:00)
--- NOTE | 2018-03-03 08:37 | Internal Med Progress Note ---
Date of Encounter: 03/03/18 Time of Encounter: 08:35 - Assessment and plan (1) Leukocytosis Current Visit: Yes Status: Acute Assessment and plan: Has persistent leukocytosis. Worsened again today CXR questionable infiltrate versus atelectasis. No fever noted. Further workup today as planned since WBC continue to rise. - Consult ID - Blood cultures from central line and peripheral, Remove central line and culture tip. CRP, procalcitonin - Emperic antibiotic therapy Vanc/Cefepime after culture draw. Qualifiers: Leukocytosis type: unspecified Qualified Code(s): D72.829 - Elevated white blood cell count, unspecified (2) Large bowel obstruction Current Visit: Yes Status: Resolved Assessment and plan: POD #6 s/p right colectomy for obstructing mass, likely neoplastic, in the ascending colon See plan for colonic mass (3) Atrial fibrillation Current Visit: Yes Status: Chronic Assessment and plan: Hx of Afib [id number]: 7 HAS-BLED: 4 Has received 10 units FFP since 02/20/18 Currently Rate controlled. Restart Warfarin when OK with surgery. Qualifiers: Atrial fibrillation type: chronic Qualified Code(s): I48.2 - Chronic atrial fibrillation (4) Hypertension Current Visit: Yes Status: Chronic Assessment and plan: Meds were changed to PO Appears to be controlled. Qualifiers: Hypertension type: essential hypertension Qualified Code(s): I10 - Essential (primary) hypertension (5) DVT prophylaxis Current Visit: Yes Status: Acute Assessment and plan: SCDs for now. Resume coumadin once okay with Surgery. (6) Colonic mass Current Visit: Yes Status: Acute Assessment and plan: CT abdomen pelvis showing evidence of high-grade obstruction of small and large bowel by large circumferential colonic mass; dilation of large bowel measuring up to 9.7 cm POD #6 s/p right colectomy for obstructing mass, likely neoplastic, in the ascending colon Path report for lymph node and colon surgical specimens pending. (7) Hypokalemia Current Visit: Yes Status: Resolved Assessment and plan: WNL (8) Hypophosphatemia Current Visit: Yes Status: Resolved Assessment and plan: Replace as needed. (9) Ileus following gastrointestinal surgery Current Visit: Yes Status: Acute Assessment and plan: Was Weaned off TPN. Tolerating PO diet at this time. (10) Pulmonary edema Current Visit: Yes Status: Resolved Assessment and plan: Currently on Lasix PO daily. 03/02/18 repeat 2v CXR done, results noted. Qualifiers: Chronicity: acute Qualified Code(s): J81.0 - Acute pulmonary edema (11) Aphasia as late effect of stroke Current Visit: Yes Status: Chronic - Time Spent With Patient Total time spent is greater than 50% in coordination of care (as documented) at patient's floor/unit and/or counseling patient: - Subjective Interval history: Patient dementia at baseline. No complaints. This AM central line seen to be slightly erythematous. No dyspnea complaints today. No fever. Tolerating diet. - Constitutional Vitals: Temp Pulse Resp BP Pulse Ox 98.3 F 63 18 140/64 94 03/03/18 06:46 03/03/18 06:46 03/03/18 06:46 03/03/18 06:46 03/03/18 06:46 General appearance: Present: cooperative Exam: - Head Head exam: Present: normocephalic - Eye Eye exam: Present: conjuntiva pink - ENT ENT exam: Present: mucous membranes dry - Respiratory Respiratory exam: Present: rhonchi. Absent: rales, wheezes - Cardiovascular Cardiovascular exam: Present: distant heart sounds. Absent: tachycardia - GI/Abdominal GI/Abdominal exam: Present: hypoactive bowel sounds, soft - Extremities Exam Extremities exam: Present: warm. Absent: tenderness - Neurological Exam Neurological exam: Present: alert, speech deficit - Skin Skin exam: Present: dry, warm. Left central line erythema noted at skin. No edema, no tenderness, no purulent drainage. Internal Medicine: Result - Labs CBC & Chem 7: 03/03/18 05:38 03/03/18 05:38 Labs: Short CBC 03/02/18 03/03/18 Range/Units 04:00 05:38 WBC 18.2 H 19.9 H (4.3-11.1) K/mcL Hgb 10.6 L 11.6 (11.5-15.4) g/dL Hct 32.8 L 35.5 (35.3-44.9) % Plt Count 264 247 (140-400) K/mcL Neutrophils # 13.5 H 14.0 H (1.6-8.9) K/mcL BMP 05/08/18 05:38 Sodium 138 Potassium 4.7 Chloride 104 Carbon Dioxide 24 BUN 23 Creatinine 0.58 L Glucose 112 H Calcium 8.7 - ABG Interpretation ABG results: PT/INR, D-dimer PT 12.6 Seconds (9.4-12.1) H 03/02/18 04:00 - Impressions Impressions Chest X-Ray 03/02/18 08:07 IMPRESSION: Stable exam with mild pulmonary vascular congestion without overt pulmonary edema. Stable moderate-sized left pleural effusion with associated likely left basilar atelectasis or infiltrate. D/ / 03/02/2018 11:04:45 Lavell Friedman MD / yesika Interpreting Provider: Lavell Friedman MD - VTE Reasons for not Prescribing Prophylaxis: Medical contraindication (Plan for surgery today) Documentation of Mechanical Device: Intermittent pneumatic compression device Consult Discharge Plan - Plan Referrals: Praneeth Mendieta MD [Non-Partnered Physician] -
[2018-03-03] MEDS ORDERED: Isovue-370 500 ML INFUS..BTL IV ONE ×2 (08:40→10:35)
[2018-03-03 09:20] LABS: Phosphorous 3.4 mg/dL (2.7-4.5)
[2018-03-03] MEDS: *HR* Digoxin 0.125 MG TABLET PO SCH (10:12)
[2018-03-03] MEDS: Furosemide 40 MG TABLET PO SCH (10:12)
[2018-03-03] MEDS: metroNIDAZOLE 500 MG TABLET PO SCH (10:24)
--- NOTE | 2018-03-03 11:58 | Infectious Disease Consult ---
Date of Encounter: 03/03/18 Time of Encounter: 11:56 Assessment and Plan (1) Sepsis Status: Acute Assessment and plan: The patient has two SIRS criteria. Etiology unclear: PNA vs. intra-abdominal vs. central line vs. ileus vs. reactive leukocytosis from malignancy vs. other. The patient has intermittent tachycardia and leukocytosis. Blood cultures drawn 03/03/18 from a peripheral source are pending x 2 sets. Blood cultures to be drawn from the central line are pending collection. The patient's mental status and aphasia limits my ability to obtain ROS from the patient. Per nursing, the patient's CVC insertion site is very angry looking under the Biopatch, but I do not appreciate any tenderness, warmth, or drainage. CXR completed 03/02/18 showed stable mild pulmonary vascular congestion without overt pulmonary edema and stable moderate left pleural effusion with associated left atelectasis or infiltrate. We will get a CT of the chest to evaluate. The patient does have abdominal tenderness on exam. A CT of the abdomen and pelvis has already been ordered by Dr. Mendieta. Check peripheral smear. Await cultures to finalize. Continue Cefepime 2 grams IV Q12H. Continue flagyl 500mg PO TID. Start Vancomycin IV empirically in case this is a central line infection. Pharmacy to dose. Goal trough ~15. Duration of treatment depends on the clinical picture. Monitor renal function and for drug toxicity and dose-adjust antibiotics. Qualifiers: Sepsis type: sepsis due to unspecified organism Qualified Code(s): A41.9 - Sepsis, unspecified organism (2) Pneumonia Status: Suspected Assessment and plan: CXR shows findings consistent with al left pleural effusion with associated left atelectasis vs. PNA. Given the patient's leukocytosis, consider pneumonia, although clinically, the patient does not appear to have respiratory distress or cough. HCAP vs. aspiration given the patient's recent vomiting. [employer] consulted and patient passed swallow evaluation. Get CT of the chest with IV contrast to evaluate further. May get S. pneumo and Legionella UAT if CT chest shows PNA. Continue antibiotics as above for now. 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 Status post exploratory celiotomy with DAVONTE, and right colectomy with stapled entero-colonic anastamosis 02/23/[address] Mendieta. Operative note reviewed. Pathology of the mass and adjacent lymph node is pending. (4) Small bowel obstruction Status: Acute Assessment and plan: Secondary to large colonic mass. Status post right colectomy 02/23/18. (5) Large bowel obstruction Status: Resolved Assessment and plan: Secondary to large colonic mass. Status post right colectomy 02/23/18. (6) UTI (urinary tract infection) Status: Acute Assessment and plan: Asymptomatic candiduria. Urine culture grew C. kefyr. No indication to treat at this time. Qualifiers: Urinary tract infection type: acute cystitis Hematuria presence: without hematuria Qualified Code(s): N30.00 - Acute cystitis without hematuria (7) Ileus following gastrointestinal surgery Status: Acute Assessment and plan: Likely secondary to recent abdominal procedure. AAS completed 02/27/18 showed findings consistent with post-op ileus. Appears improved. The patient started having bowel movements 02/28/18 with loose diarrhea stools, which has resolved. Further management per the surgery team. (8) Coagulopathy Status: Resolved Assessment and plan: INR elevated at 5.1 on admission. Resolved. (9) Pulmonary edema Status: Resolved Assessment and plan: CXR completed 03/02/18 showed stable mild pulmonary vascular congestion without overt pulmonary edema. Likely secondary to large amount of IV fluids pre/intra/post-op. 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 Qualifiers: CVA mechanism: embolism Precerebral and cerebral artery: middle cerebral artery Laterality of affected vessel: left Qualified Code(s): I63.412 - Cerebral infarction due to embolism of left middle cerebral artery (11) Atrial fibrillation Status: Chronic Assessment and plan: Rate controlled. Management per the primary team. Qualifiers: Atrial fibrillation type: chronic Qualified Code(s): I48.2 - Chronic atrial fibrillation (12) Hypertension Status: Chronic Qualifiers: Hypertension type: essential hypertension Qualified Code(s): I10 - Essential (primary) hypertension (13) History of mitral valve replacement with bioprosthetic valve Status: Chronic (14) Aphasia as late effect of stroke Status: Chronic Infectious Disease HPI - Data of Consult Patient: new to practice Consult date: 03/03/18 Requesting Physician: Shirley Cameron MD Primary Care Provider: Juan Fernandez MD - Consult Narrative Reason for consult: Leukocytosis History of present illness: Ms. Galeana is a 87 year old female with past medical history of A. fib, CVA with aphasia, hypertension, hyperlipidemia, and remote history of abdominal [facility] The patient was admitted to the hospital February 19 for UTI, colon mass, and bowel obstruction. We are consulted March 03 for further recommendations for persistent leukocytosis. Briefly, the patient is a 87-year-old female with past medical history as stated above. The patient presented to the emergency department with complaints of abdominal bloating and tenderness that was noted by the patient's home health nurse. Upon arrival to the ER, the patient was afebrile and hemodynamically stable. She had leukocytosis with monocyte predominance. She had elevated lactic acid level. Urinalysis was positive for large amounts of leukocyte esterase, bacteria, and white blood cells and epithelial cells. 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 She had an NG tube placed and was started empirically on IV Zosyn. Gen. surgery was consult and recommend the patient be admitted to the hospitalist service for further evaluation. Since admission, the patient has been evaluated by the general surgery team. On February 23, she was taken to the operating room and underwent exploratory celiotomy with lysis of adhesions and a right colectomy with stapled enterocolonic anastomosis. Operative note has been reviewed in the pathology is pending. Hospital stay, the patient has remained afebrile. She has had some intermittent tachycardia. Her white blood cell count initially was turning down, but has started to trend upward since having surgery. She was initially treated with Zosyn from February 20 through February 28 and her antibiotics were stopped. She was recently restarted back on cefepime and Flagyl this morning. Postoperatively, the patient had a delay in her return of bowel function. On February 27 she had an acute abdominal series and chest x-ray that showed an increase in pulmonary edema with moderate subpulmonic left pleural effusion and findings consistent with a postop ileus. She also developed vomiting after she had a clear liquid tray and took some pills. She was switched back to nothing by mouth and was started on TPN. She started having bowel movements on February 28 that were diarrhea. A C. difficile was checked and was negative. She had another chest x-ray completed yesterday that showed stable with mild pulmonary vascular congestion without overt pulmonary edema and stable moderate left pleural effusion with associated left atelectasis or infiltrate. Her white blood cell count went up to 19,000 with 12% monocytes this morning. She had peripheral blood cultures pending 1 set and one set to be drawn from her central line which is pending collection. Per nursing, her central line dressing was placed this morning and when it was changed there was noted to be some redness around the central line insertion site under the Biopatch. She is currently on cefepime and Flagyl. We have been asked to evaluate and make further recommendations. The patient's mental status precludes her ability to provide me with any review of systems information. Most of the infertility patient is obtained from the medical record in her family who is at the bedside. According to her and son, the patient was in her usual state of health until the day of admission when she was noted to have abdominal bloating and tenderness by her home health nurse and was directed to come to the emergency department. No other review of systems information is provided at this time by the patient. 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 She lives at home with her . She ambulates with a walker and is typically able to feed herself and answer yes /no questions. Her family, she does not have any tobacco, drug, or alcohol use history. CC: Shirley Cameron MD Past Med Surg Social Fam HX - Past Medical History Attestation: Yes The following information was validated with the patient. Source: old records reviewed, obtained from family, nursing notes reviewed Medical history: coronary artery disease, CVA, myocardial infarction, TIA, other Psychiatric history: no psych history - Past Surgical History Surgical History: heart valve replacement, other - Social History Smoking Status: Never smoker Smokeless Tobacco Status: No Alcohol use: none Drug use: none Occupational status: retired Current living situation: Home, With Family Activity Level: Uses cane/walker Recent Out of Country Travel Within the Last 8 Weeks: No Exposure or Possible Exposure to Illness During Travel: No - Family History Mother History Unknown: Yes Infectious Disease-CN:Meds Alendronate Sodium 70 mg PO QWEEK 07/31/15 [History] Amlodipine [Norvasc] 10 mg PO DAILY 07/31/15 [History] Citalopram Hydrobromide [Celexa] 10 mg PO DAILY #0 07/31/15 [History] Digoxin [Lanoxin] 0.125 mg PO DAILY 07/31/15 [History] Losartan [Cozaar] 50 mg PO DAILY 07/31/15 [History] Multivitamin [Multi-Day Vitamins] 1 tab PO DAILY 07/31/15 [History] Simvastatin [Zocor] 40 mg PO HS 07/31/15 [History] Warfarin [Coumadin] 2 mg PO 1800 #60 tablet 08/05/15 [Rx] Aspirin 81 mg PO DAILY 02/19/18 [History] Cholecalciferol (D-3) [Vitamin D] 5,000 unit PO DAILY 02/19/18 [History] Donepezil [Aricept] 5 mg PO HS 02/19/18 [History] Metoprolol XL (24 HR) Succ [Toprol XL] 150 mg PO DAILY 02/19/18 [History] 3 Allergy/AdvReac Type Severity Reaction Status Date / Time No Known Allergies Allergy Verified 02/20/18 11:01 All systems: reviewed and no additional remarkable complaints except as stated Exam - Constitutional Vitals: Temp Pulse Resp BP Pulse Ox 97.8 F 69 18 151/65 94 03/03/18 10:48 03/03/18 10:48 03/03/18 10:48 03/03/18 10:48 03/03/18 10:48 General appearance: average body habitus, cooperative, no acute distress - Head Head exam: Present: atraumatic, normal inspection, normocephalic - Eye Eye exam: Present: EOMI, normal appearance, PERRL Pupils: Present: normal accommodation - ENT Additional comments: Unable to assess due to patient non-compliance. - Neck Neck exam: Present: normal inspection - Respiratory Respiratory exam: Present: CTAB. Absent: rales, respiratory distress, rhonchi, wheezes - Cardiovascular Cardiovascular exam: Present: irregular rhythm. Absent: tachycardia - GI/Abdominal GI/Abdominal exam: Present: normal bowel sounds, soft, tenderness (generalized) . Absent: distended Additional comments: Midline abdominal incision with wound edges well-approximated and nguyen intact. No erythema, warmth, drainage noted. - Extremities Exam Extremities exam: Present: normal inspection. Absent: joint swelling, pedal edema, tenderness - Neurological Exam Neurological exam: Present: altered (Awakens easily to verbal stimuli, but difficult to maintain wakefulness during exam.), no focal deficits (TIDWELL x4 on command.), strengths equal and symetr throughout. Absent: facial droop - Skin Skin exam: Present: dry, intact, normal color, warm Infectious Disease CN: Results - Labs CBC & Chem 7: 03/03/18 05:38 03/03/18 05:38 Serology: Serology 03/01/18 Range/Units 14:05 Stl C. diff Tox B Gene Negative (Negative) - VTE Reasons for not Prescribing Prophylaxis: Medical contraindication (Plan for surgery today) Documentation of Mechanical Device: Intermittent pneumatic compression device Consult Discharge Plan - Plan Referrals: Praneeth Mendieta MD [Non-Partnered Physician] - - Attending Attestation I examined this patient and my medical decision-making was reviewed with the Resident Physician. I agree with the documented findings, disposition and treatment plan as described except to the extent set forth below. This is an addendum to original report dictated by Gillian Monaco CNP. Please refer to Philipp stinson for full details. Patient is an 87-year-old woman who was admitted to [facility] on February 19 with abdominal pain due to large bowel obstruction, we are consulted on March 03 for persistent leukocytosis. Patient is an 87-year-old woman with past medical history mentioned below including history of CVA with aphasia, atrial fibrillation and history of mitral valve replacement with bioprosthetic valve presents to the ER with abdominal pain and distention for about 2 days prior to admission. Initially patient did not have any fever, heart rate was a little bit fast but no true tachycardia and with hyperextension with the blood pressure in the 160s over 100s. Initial WBC was 21.7 thousand with 80% neutrophils, INR of 4.5. Creatinine was normal but on the higher side. Patient had a urinalysis done which showed large leukocyte esterase, negative nitrites, some pyuria and yeast. A urine culture reveals Sania species. Patient also had an abdominal and pelvic CT on 02/19 which read evidence of high-grade obstruction of both the small and large bowels the level of the hepatic, secondary to a large circumferential colonic mass, compatible with primary colonic carcinoma. Although there is localized lymphadenopathy, distant metastatic disease is not detected at this time. Low-density lesion with the hepatic dome measures water density and is most likely a benign cyst. A chest x-ray was done on February 23 which revealed placement of left central venous catheter with no evidence of pneumothorax and likely small left effusion and atelectasis. On February 23 patient underwent a coronary ciliotomy, lysis of adhesions, right colectomy with stapled enterocolonic anastomosis by Dr. mendieta. Intra-Op pathology report is still pending. Since then patient continues to have leukocytosis were asked to evaluate the patient make further recommendations. Currently patient review of systems very limited but per nursing staff she has no cough no sputum production. Patient had a couple bouts of diarrhea earlier but now has improved. Nursing also tells us that she had a vomiting episode a few days back when he started on clear liquid diet. Patient was tolerating oral intake now. On the nursing change the dressing on the central line left subclavian they stated that there was some erythema surrounding the But no purulence. By the dressing was loose and there was erythema under the Biopatch. Patient was initially on Zosyn post op and then it was stopped on February 25 and on March 01 cefepime and Flagyl was started. Dr. mendieta evaluated the patient earlier and he ordered a CT abdomen and pelvis with IV contrast and no oral. Assessment and plan: 1-Sepsis(has to SIRS criteria) secondary to #2 or #3 2-Bowel obstruction with a large colonic mass status post resection on February [address] mendieta: Intra-Op pathology report still pending but concern for malignancy. 3-Recent episode of diarrhea. C. difficile was checked and was negative. 4-Candiduria. asymptomatic 5-Recent episode of vomiting. Concern for possible aspiration. 6-Persistent leukocytosis with elevated monocytes. Could be secondary to an occult infection versus malignancy versus other Recommendation: Await blood cultures to finalize. We will check a peripheral smear. We will add CPT chest to the CT abdomen and pelvis that was ordered by Dr. mendieta Agree with cefepime and Flagyl for now. We will add vancomycin empirically if they think it is a central line associated infection. Monitor labs and for drug toxicity Goal vancomycin trough 10-15 Duration of treatment depends on what we find on blood cultures and then the CT chest abdomen and pelvis.
[2018-03-03] MEDS: Cefepime HCl 2,000 MG in Water for inj. (sterile) 20 ML 20 ML IVP SCH ×2 (12:09→22:59)
[2018-03-03] MEDS ORDERED: OXYCODONE Oral CONC 10 MG/0.5 ML ORAL.SYG SL PRN (14:50)
--- NOTE | 2018-03-03 15:00 | General Surgery Progress Note ---
Date of Encounter: 03/03/18 Time of Encounter: 14:53 Subjective Narrative: General Surgery - POD #8 Patient appears to be well in no acute distress; maximum temperature 90.9, hemodynamically stable despite rising leukocytosis to 19.9. Differential notable for neutrophilia increased to 14% and monocytes have increased to 2.4% Lungs: Diminished breath sounds left base in keeping with prior chest x-ray findings of a left pleural effusion Abdomen: Soft, nontender with active bowel sounds; midline incision clean and dry. CT abdomen/pelvis completed earlier today reviewed with [facility]. Discussed with Dr Emmanuel and Dr Cameron. Findings include: Evidence of right hemicolectomy with no anastomotic failure or leak; no free air or obstruction, persistent mild ileus of the small and large bowel. Mild abdominal and pelvic ascites also described, deemed likely related to the surgery completed 02/24/18. CT thorax also completed - no additional findings other than those described on CT abd/pelvis. Patient status discussed extensively with the patient's care team (Nursing, Pharmacy, Dr Emmanuel and Dr Cameron) as well as with the patient's and son. The radiologic findings are encouraging and hopefully will respond to simple measures such as increased activity out of bed, improved pulmonary toilet with deep breathing, incentive spirometry, and coughing. Central line placed at the time of surgery has been removed. Tip cultures pending. Vancomycin has been initiated empirically pending the outcome of these cultures. Cefepime also initiated. Urinalysis and urine cultures also ordered and pending. Objective Vital Signs - Last 8 Hours Temp Pulse Resp BP Pulse Ox 03/03/18 14:39 98.7 F 91 16 159/75 100 03/03/18 10:48 97.8 F 69 18 151/65 94 Intake and Output 03/02/18 03/03/18 03/03/18 23:59 07:59 15:59 Intake Total 360 / 360 0 / 0 260 / 260 Output Total 0 / 0 0 / 0 0 / 0 Balance 360 / 360 0 / 0 260 / 260 Intake: IV Fluids 260 / 260 20 / 20 Maxipime 2,000 MG In Water for 20 / 20 inj. (sterile) 20 ML @ 300 mls/ hr IVP Q12H [facility] Rx#:[id number] Sodium Phosphate 30 MMOL In 0.9 260 / 260 % Sodium Chloride 250 ML @ 42 mls/hr IVPB ONCE ONE Rx#: [id number] Oral 100 / 100 0 / 0 240 / 240 Output: Urine 0 / 0 0 / 0 0 / 0 Other: Meal NPO Percent of Meal Consumed 50% Stool Size Smear Stool Consistency soft Stool Color Brown # Urine Diapers 1 1 1 # Bowel Movement Diapers 1 Blood Glucose* 96 90 - Labs 03/03/18 05:38 03/03/18 05:38 Diabetes panel 03/03/18 Range/Units 05:38 Sodium 138 (136-145) mEq/L Potassium 4.7 (3.5-5.1) mEq/L Chloride 104 (98-107) mEq/L Carbon Dioxide 24 (23-29) mEq/L BUN 23 (8-23) mg/dL Creatinine 0.58 L (0.60-1.20) mg/dL Glucose 112 H (70-105) mg/dL Calcium 8.7 (8.6-10.3) mg/dL Calcium panel 03/03/18 03/03/18 Range/Units 05:38 08:32 Calcium 8.7 (8.6-10.3) mg/dL Phosphorus 3.4 (2.7-4.5) mg/dL Pituitary panel 03/03/18 Range/Units 05:38 Sodium 138 (136-145) mEq/L Potassium 4.7 (3.5-5.1) mEq/L Chloride 104 (98-107) mEq/L Carbon Dioxide 24 (23-29) mEq/L BUN 23 (8-23) mg/dL Creatinine 0.58 L (0.60-1.20) mg/dL Glucose 112 H (70-105) mg/dL Calcium 8.7 (8.6-10.3) mg/dL Adrenal panel 03/03/18 Range/Units 05:38 Sodium 138 (136-145) mEq/L Potassium 4.7 (3.5-5.1) mEq/L Chloride 104 (98-107) mEq/L Carbon Dioxide 24 (23-29) mEq/L BUN 23 (8-23) mg/dL Creatinine 0.58 L (0.60-1.20) mg/dL Glucose 112 H (70-105) mg/dL Calcium 8.7 (8.6-10.3) mg/dL - VTE Reasons for not Prescribing Prophylaxis: Medical contraindication (Plan for surgery today) Documentation of Mechanical Device: Intermittent pneumatic compression device Consult Discharge Plan - Plan Referrals: Praneeth Mendieta MD [Non-Partnered Physician] -
[2018-03-03 17:32] LABS: Bilirubin,Urine Negative (Negative); Blood,Urine Negative (Negative); Clarity,Urine Clear (Clear); Color,Urine Yellow (Yellow); Glucose,Urine (UA) Normal (Normal); Ketones,Urine Negative (Negative); Leukocyte Esterase,Urine Moderate (Negative); Nitrite,Urine Negative (Negative); Protein,Urine Trace mg/dL (Neg-Trace); Specific Gravity,Urine > 1.030 (1.010-1.025); Urobilinogen,Urine Normal (Normal)
[2018-03-03 17:33] LABS: Bacteria,Urine None Seen per hpf (None-Few); RBC,Urine 0-3 per hpf (0-3); Squamous Epithelial Cell,Urine Few per lpf (None-Few); WBC,Urine TNTC per hpf (0-3)
[2018-03-03] MEDS ORDERED: Warfarin perPT PO PRN (18:00)
[2018-03-03] MEDS ORDERED: *HR* Warfarin 2 MG TABLET PO ONE (18:00)
[2018-03-03] MEDS: Metoprolol XL (24 HR) Succ 50 MG TAB.ER.24H PO SCH (22:59)
[2018-03-04 05:24] LABS: Basophils % 0.2 %; Eosinophils # 0.4 K/mcL (0.0-0.6); Eosinophils % 2.2 %; Hemoglobin 11.1 g/dL (11.5-15.4); Immature Granulocytes % 1.9 % (0-4); Lymphocytes % 12.2 %; Mean Corpuscular HGB Conc 33.6 g/dL (31.6-35.5); Mean Corpuscular Volume 92.2 fL (83.0-100.0); Mean Platelet Volume 10.3 fL (9.4-12.4); Monocytes # 2.1 K/mcL (0.0-1.3); Monocytes % 12.7 %; Neutrophils # 11.8 K/mcL (1.6-8.9); Platelet Count 243 K/mcL (140-400); Red Blood Count 3.58 M/mcL (3.82-4.97); Red Cell Distribution Width 14.2 % (11.5-14.5); Segmented Neutrophils % 70.8 %
[2018-03-04 05:32] LABS: INR 1.3; Prothrombin Time 13.6 Seconds (9.4-12.1)
[2018-03-04 05:47] LABS: BUN/Creatinine Ratio 31 (6-26); Blood Urea Nitrogen 19 mg/dL (8-23); Calcium 8.6 mg/dL (8.6-10.3); Carbon Dioxide 26 mEq/L (23-29); Chloride 106 mEq/L (98-107); Glucose 116 mg/dL (70-105); Osmolality,Calculated 279 (280-300); Phosphorous 3.1 mg/dL (2.7-4.5); Potassium 3.9 mEq/L (3.5-5.1); Sodium 133 mEq/L (136-145); eGFR For African Americans > 60 (> 60); eGFR For Non-African Americans > 60 (> 60)
--- NOTE | 2018-03-04 09:53 | General Surgery Progress Note ---
Date of Encounter: 03/04/18 Time of Encounter: 09:47 Subjective Narrative: General Surgery - POD #9 Patient awake, alert, appears to be feeling quite well. Afebrile; hemodynamically stable: pulse 67, respirations 18, blood pressure 137/69 Abdomen: Soft with no obvious tenderness; skin nguyen have been removed. Midline incision is intact and healing well. No detected fascial defect. Active bowel sounds. Bowels moving, diarrhea resolved Laboratories: Leukocytosis has improved to 16.7; hemoglobin 11.1, hematocrit 33.0; neutrophilia has improved to 11.8%, monocytes 2.1% Sodium 133, potassium 3.9, BUN 19, creatinine 0.61. Cultures: Pending Operative pathology: Pending Impression: Postoperative day 9; status post exploratory celiotomy right colectomy for an obstructing neoplasm ascending colon. Still awaiting operative pathology to confirm the clinical diagnosis Clinically stable and improving. Acceptable postoperative status Source of leukocytosis appears to be the pulmonary process involving the left basilar lung. Cultures of the central venous line and urine are still pending Objective Vital Signs - Last 8 Hours Temp Pulse Resp BP Pulse Ox 03/04/18 08:13 97.9 F 67 18 137/69 96 03/04/18 05:00 98.0 F 61 16 129/72 94 Intake and Output 03/03/18 03/04/18 03/04/18 23:59 07:59 15:59 Intake Total 330 / 330 250 / 250 Balance 330 / 330 250 / 250 Intake: IV Fluids 270 / 270 250 / 250 Maxipime 2,000 MG In Water for 20 / 20 inj. (sterile) 20 ML @ 300 mls/ hr IVP Q12H [facility] Rx#:[id number] Vancocin 1,000 MG In 0.9 % 250 / 250 250 / 250 Sodium Chloride 250 ML @ 167 mls/hr IVPB Q12H [facility] Rx#: [id number] Oral 60 / 60 0 / 0 Other: # Urine Diapers 1 1 Weight 71 kg Patient Weight 03/04/18 23:59 Weight 71 kg - Labs 03/04/18 05:10 03/04/18 05:10 Diabetes panel 03/04/18 Range/Units 05:10 Sodium 133 L (136-145) mEq/L Potassium 3.9 (3.5-5.1) mEq/L Chloride 106 (98-107) mEq/L Carbon Dioxide 26 (23-29) mEq/L BUN 19 (8-23) mg/dL Creatinine 0.61 (0.60-1.20) mg/dL Glucose 116 H (70-105) mg/dL Calcium 8.6 (8.6-10.3) mg/dL Calcium panel 03/04/18 Range/Units 05:10 Calcium 8.6 (8.6-10.3) mg/dL Phosphorus 3.1 (2.7-4.5) mg/dL Pituitary panel 03/04/18 Range/Units 05:10 Sodium 133 L (136-145) mEq/L Potassium 3.9 (3.5-5.1) mEq/L Chloride 106 (98-107) mEq/L Carbon Dioxide 26 (23-29) mEq/L BUN 19 (8-23) mg/dL Creatinine 0.61 (0.60-1.20) mg/dL Glucose 116 H (70-105) mg/dL Calcium 8.6 (8.6-10.3) mg/dL Adrenal panel 03/04/18 Range/Units 05:10 Sodium 133 L (136-145) mEq/L Potassium 3.9 (3.5-5.1) mEq/L Chloride 106 (98-107) mEq/L Carbon Dioxide 26 (23-29) mEq/L BUN 19 (8-23) mg/dL Creatinine 0.61 (0.60-1.20) mg/dL Glucose 116 H (70-105) mg/dL Calcium 8.6 (8.6-10.3) mg/dL - VTE Reasons for not Prescribing Prophylaxis: Medical contraindication (Plan for surgery today) Documentation of Mechanical Device: Intermittent pneumatic compression device Consult Discharge Plan - Plan Referrals: Praneeth Mendieta MD [Non-Partnered Physician] -
--- NOTE | 2018-03-04 10:03 | Infectious Disease Progress No ---
Date of Encounter: 03/04/18 Time of Encounter: 10:01 - Assessment and Plan (1) Sepsis Current Visit: Yes Status: Acute The patient has two SIRS criteria. Etiology not entirely clear: pleural effusion vs. central line vs. ileus vs. reactive leukocytosis from malignancy vs. other. Improved. Tachycardia has resolved. WBC down to 16 this morning. Blood cultures drawn 03/03/18 from a peripheral source are pending x 2 sets. Blood cultures to be drawn from the central line are pending as well. The patient's mental status and aphasia limits my ability to obtain ROS from the patient. Per nursing, the patient's CVC insertion site was very angry looking under the Biopatch, but I do not appreciate any tenderness, warmth, or drainage. CXR completed 03/02/18 showed stable mild pulmonary vascular congestion without overt pulmonary edema and stable moderate left pleural effusion with associated left atelectasis or infiltrate. CT of the chest shows a moderate left pleural effusion with left lower lobe near-complete atelectasis. Peripheral smear showed reactive leukocytosis with toxic granules. Await cultures to finalize. Continue Cefepime 2 grams IV Q12H. Continue flagyl 500mg PO TID. Continue Vancomycin IV empirically in case this is a central line infection. Pharmacy to dose. Goal trough ~15. Duration of treatment depends on the clinical picture. Monitor renal function and for drug toxicity and dose-adjust antibiotics. Qualifiers: Sepsis type: sepsis due to unspecified organism Qualified Code(s): A41.9 - Sepsis, unspecified organism (2) Pneumonia Current Visit: Yes Status: Ruled-out CT chest negative for PNA. Qualifiers: Pneumonia type: due to unspecified organism Laterality: bilateral Lung location: lower lobe of lung Qualified Code(s): J18.1 - Lobar pneumonia, unspecified organism (3) Pleural effusion Current Visit: Yes Status: Acute CT chest showed a moderate left sided effusion with near-complete atelectasis of the LLL. No hypoxia and respiratory distress noted. Consider pulmonology to evaluate. Recommend aggressive pulmonary toileting with ambulation and IS. 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 Status post exploratory celiotomy with DAVONTE, and right colectomy with stapled entero-colonic anastamosis 02/23/[address] Mendieta. Operative note reviewed. Pathology of the mass and adjacent lymph node is pending. (5) Small bowel obstruction Current Visit: Yes Status: Acute Secondary to large colonic mass. Status post right colectomy 02/23/18. (6) Large bowel obstruction Current Visit: Yes Status: Resolved Secondary to large colonic mass. Status post right colectomy 02/23/18. (7) UTI (urinary tract infection) Current Visit: Yes Status: Acute Asymptomatic candiduria. Urine culture grew C. kefyr. No indication to treat at this time. Repeat UA positive for TNTC WBC and bacteria. Culture is pending. Continue antibiotics as above. Not sure if the patient is having urinary symptoms since her aphasia limits her ability to provide ROS information. Qualifiers: Urinary tract infection type: acute cystitis Hematuria presence: without hematuria Qualified Code(s): N30.00 - Acute cystitis without hematuria (8) Ileus following gastrointestinal surgery Current Visit: Yes Status: Acute Likely secondary to recent abdominal procedure. AAS completed 02/27/18 showed findings consistent with post-op ileus. Appears improved. The patient started having bowel movements 02/28/18 with loose diarrhea stools, which has resolved. CT abdomen and pelvis continues to show findings consistent with post-op ileus. Further management per the surgery team. (9) Coagulopathy Current Visit: Yes Status: Resolved INR elevated at 5.1 on admission. Resolved. (10) Pulmonary edema Current Visit: Yes Status: Resolved CXR completed 03/02/18 showed stable mild pulmonary vascular congestion without overt pulmonary edema. Likely secondary to large amount of IV fluids pre/intra/post-op. 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 Qualifiers: CVA mechanism: embolism Precerebral and cerebral artery: middle cerebral artery Laterality of affected vessel: left Qualified Code(s): I63.412 - Cerebral infarction due to embolism of left middle cerebral artery (12) Atrial fibrillation Current Visit: Yes Status: Chronic Rate controlled. Management per the primary team. Qualifiers: Atrial fibrillation type: chronic Qualified Code(s): I48.2 - Chronic atrial fibrillation (13) Hypertension Current Visit: Yes Status: Chronic Qualifiers: Hypertension type: essential hypertension Qualified Code(s): I10 - Essential (primary) hypertension (14) History of mitral valve replacement with bioprosthetic valve Current Visit: Yes Status: Chronic (15) Aphasia as late effect of stroke Current Visit: Yes Status: Chronic - Subjective Interval history: Patient seen and examined. No acute events noted overnight. Patient sitting up in bed eating breakfast. She remains aphasic, but does answer yes/no questions. Denies any pain or urinary complaints. Denies any shortness of breath or cough. Denies any nausea or vomiting. Infect Dis PN-Objective Data - Labs CBC & Chem 7: 03/04/18 05:10 03/04/18 05:10 Labs: Laboratory Results - last 24 hr 03/03/18 03/03/18 03/04/18 05:38 16:50 05:10 WBC 19.9 H 16.7 H RBC 3.90 3.58 L Hgb 11.6 11.1 L Hct 35.5 33.0 L MCV 91.0 92.2 MCH 29.7 31.0 MCHC 32.7 33.6 RDW 14.3 14.2 Plt Count 247 243 MPV 10.6 10.3 Immature Gran % 1.9 1.9 Seg Neutrophils % 70.2 70.8 Lymphocytes % 13.1 12.2 Monocytes % 12.2 12.7 Eosinophils % 2.2 2.2 Basophils % 0.4 0.2 Neutrophils # 14.0 H 11.8 H Lymphocytes # 2.6 2.0 Monocytes # 2.4 H 2.1 H Eosinophils # 0.4 0.4 Basophils # 0.1 0.0 Nucleated RBCs/100 WBC 0.1 H Smear Path Review See Below PT INR Sodium Potassium Chloride Carbon Dioxide BUN Creatinine Est GFR ( Amer) Est GFR (Non-Af Amer) BUN/Creatinine Ratio Glucose Calculated Osmolality Calcium Phosphorus Urine Color Yellow Urine Clarity Clear Urine pH 6.0 Ur Specific [place] > 1.030 H Urine Protein Trace Urine Glucose (UA) Normal Urine Ketones Negative Urine Blood Negative Urine Nitrite Negative Urine Bilirubin Negative Urine Urobilinogen Normal Ur Leukocyte Esterase Moderate H Urine Microscopic RBC 0-3 Urine Microscopic WBC TNTC H Ur Squamous Epith Cells Few Urine Bacteria None Seen Ur Culture Indicated? YES A 03/04/18 03/04/18 05:10 05:10 WBC RBC Hgb Hct MCV MCH MCHC RDW Plt Count MPV Immature Gran % Seg Neutrophils % Lymphocytes % Monocytes % Eosinophils % Basophils % Neutrophils # Lymphocytes # Monocytes # Eosinophils # Basophils # Nucleated RBCs/100 WBC Smear Path Review PT 13.6 H INR 1.3 Sodium 133 L Potassium 3.9 Chloride 106 Carbon Dioxide 26 BUN 19 Creatinine 0.61 Est GFR ( Amer) > 60 Est GFR (Non-Af Amer) > 60 BUN/Creatinine Ratio 31 H Glucose 116 H Calculated Osmolality 279 L Calcium 8.6 Phosphorus 3.1 Urine Color Urine Clarity Urine pH Ur Specific [place] Urine Protein Urine Glucose (UA) Urine Ketones Urine Blood Urine Nitrite Urine Bilirubin Urine Urobilinogen Ur Leukocyte Esterase Urine Microscopic RBC Urine Microscopic WBC Ur Squamous Epith Cells Urine Bacteria Ur Culture Indicated? Cultures: Serology 03/03/18 03/01/18 Range/Units 16:50 14:05 Urine Color Yellow (Yellow) Urine Clarity Clear (Clear) Urine pH 6.0 (5.0-8.0) pH Units Ur Specific [place] > 1.030 H (1.010-1.025) Urine Protein Trace (Neg-Trace) mg/dL Urine Glucose (UA) Normal (Normal) mg/dL Urine Ketones Negative (Negative) mg/dL Urine Blood Negative (Negative) Urine Nitrite Negative (Negative) Urine Bilirubin Negative (Negative) Urine Urobilinogen Normal (Normal) mg/dL Ur Leukocyte Esterase Moderate H (Negative) Urine Microscopic RBC 0-3 (0-3) per hpf Urine Microscopic WBC TNTC H (0-3) per hpf Ur Squamous Epith Cells Few (None-Few) per lpf Urine Bacteria None Seen (None-Few) per hpf Ur Culture Indicated? YES A (NO) Stl C. diff Tox B Gene Negative (Negative) - Impressions Impressions Abdomen/Pelvis CT 03/03/18 13:30 IMPRESSION: Moderate left pleural effusion with left lower lobe near complete atelectasis. Status post right hemicolectomy. No evidence of anastomotic breakdown, free air or obstruction. Mild ileus of the small and large bowel. Mild abdominal and pelvic ascites likely related to recent surgery. No discrete drainable fluid collection to suggest an abscess. Postoperative seroma in the left anterior abdominal wall at the site of prior left anterior abdominal wall hernia repair at the site of prior ostomy. D/ / 03/03/2018 15:07:29 Brennan Marion MD / josué Interpreting Provider: Brennan Marion MD Chest CT 03/03/18 13:30 IMPRESSION: Moderate left pleural effusion with left lower lobe near complete atelectasis. Status post right hemicolectomy. No evidence of anastomotic breakdown, free air or obstruction. Mild ileus of the small and large bowel. Mild abdominal and pelvic ascites likely related to recent surgery. No discrete drainable fluid collection to suggest an abscess. Postoperative seroma in the left anterior abdominal wall at the site of prior left anterior abdominal wall hernia repair at the site of prior ostomy. D/ / 03/03/2018 15:07:29 Brennan Marion MD / josué Interpreting Provider: Brennan Marion MD Exam - Constitutional Vitals: Temp Pulse Resp BP Pulse Ox 97.9 F 67 18 137/69 96 03/04/18 08:13 03/04/18 08:13 03/04/18 08:13 03/04/18 08:13 03/04/18 08:13 General appearance: average body habitus, cooperative, no acute distress - Head Head exam: Present: atraumatic, normal inspection, normocephalic - Eye Eye exam: Present: EOMI, normal appearance Pupils: Present: normal accommodation, PERRL - ENT ENT exam: Present: mucous membranes moist - Neck Neck exam: Present: normal inspection - Respiratory Respiratory exam: Present: decreased breath sounds (Left base), CTAB. Absent: rales, rhonchi, wheezes - Cardiovascular Cardiovascular exam: Present: irregular rhythm, +S1, +S2. Absent: tachycardia - GI/Abdominal GI/Abdominal exam: Present: normal bowel sounds, soft, tenderness (Generalized, worse in the right lower quadrant.). Absent: distended Additional comments: Midline abdominal incision. Most of the nguyen have been removed. No erythema or drainage noted - Extremities Exam Extremities exam: Present: normal inspection. Absent: pedal edema, tenderness - Neurological Exam Neurological exam: Present: alert, no focal deficits, strengths equal and symetr throughout, speech deficit (Expressive aphasia). Absent: facial droop - Psychiatric Psychiatric exam: Present: normal affect, normal mood - Skin Skin exam: Present: dry, normal color, warm - VTE Reasons for not Prescribing Prophylaxis: Medical contraindication (Plan for surgery today) Documentation of Mechanical Device: Intermittent pneumatic compression device Consult Discharge Plan - Plan Referrals: Praneeth Mendieta MD [Non-Partnered Physician] - - Attending Attestation I examined this patient and my medical decision-making was reviewed with the Resident Physician. I agree with the documented findings, disposition and treatment plan as described except to the extent set forth below. patient seems to be doing much better. walked today with nursing. Had BM
[2018-03-04] MEDS: Furosemide 40 MG TABLET PO SCH (10:24)
[2018-03-04] MEDS: Cefepime HCl 2,000 MG in Water for inj. (sterile) 20 ML 20 ML IVP SCH ×2 (10:24→20:33)
[2018-03-04] MEDS: *HR* Digoxin 0.125 MG TABLET PO SCH (10:24)
[2018-03-04] MEDS ORDERED: Furosemide 40 MG/4 ML VIAL IVP ONE (16:34)
--- NOTE | 2018-03-04 16:53 | Internal Med Progress Note ---
Date of Encounter: 03/04/18 Time of Encounter: 16:48 - Assessment and plan (1) Leukocytosis Current Visit: Yes Status: Acute Assessment and plan: Has persistent leukocytosis. CXR questionable infiltrate versus atelectasis. WBCs improved to 16k today, remains afebrile. - Consult ID - Blood cultures from central line and peripheral, Remove central line and culture tip. CRP, procalcitonin - Emperic antibiotic therapy Vanc/Cefepime/Flagyl Qualifiers: Leukocytosis type: unspecified Qualified Code(s): D72.829 - Elevated white blood cell count, unspecified (2) Pleural effusion Current Visit: Yes Status: Acute Assessment and plan: CT chest shos left side with near-complete atelectasis Family d/w Surgery about this, and patient. They are okay with holding any interventions. May need to consider thoracentesis given now moderate to large, give IV Lasix 40 mg IV once and reevaluate. Hold coumadin for now in case a thoracentesis needs done. If is done, will send off for cytology. (3) Pulmonary edema Current Visit: Yes Status: Resolved Assessment and plan: Currently on Lasix PO daily. 03/02/18 repeat 2v CXR done, results noted. Since patient having pleural effusion worsening, will give 40 mg IV lasix once and monitor. Qualifiers: Chronicity: acute Qualified Code(s): J81.0 - Acute pulmonary edema (4) Large bowel obstruction Current Visit: Yes Status: Resolved Assessment and plan: POD #9 s/p right colectomy for obstructing mass, likely neoplastic, in the ascending colon See plan for colonic mass (5) Atrial fibrillation Current Visit: Yes Status: Chronic Assessment and plan: Hx of Afib [id number]: 7 HAS-BLED: 4 Has received 10 units FFP since 02/20/18 Currently Rate controlled. Restart Warfarin if no plans for thoracentesis. Will d/w Surgery team. Qualifiers: Atrial fibrillation type: chronic Qualified Code(s): I48.2 - Chronic atrial fibrillation (6) Hypertension Current Visit: Yes Status: Chronic Assessment and plan: Meds were changed to PO Appears to be controlled. Qualifiers: Hypertension type: essential hypertension Qualified Code(s): I10 - Essential (primary) hypertension (7) Colonic mass Current Visit: Yes Status: Acute Assessment and plan: CT abdomen pelvis showing evidence of high-grade obstruction of small and large bowel by large circumferential colonic mass; dilation of large bowel measuring up to 9.7 cm POD #6 s/p right colectomy for obstructing mass, likely neoplastic, in the ascending colon Path report for lymph node and colon surgical specimens still pending. (8) Hypokalemia Current Visit: Yes Status: Resolved Assessment and plan: WNL (9) Hypophosphatemia Current Visit: Yes Status: Resolved Assessment and plan: Replace as needed. (10) Ileus following gastrointestinal surgery Current Visit: Yes Status: Acute Assessment and plan: Was Weaned off TPN. Tolerating PO diet at this time. (11) Aphasia as late effect of stroke Current Visit: Yes Status: Chronic (12) DVT prophylaxis Current Visit: Yes Status: Acute Assessment and plan: SCDs for now. Plan to resume coumadin if no thoracentisis is planned for pleural effusion. - Time Spent With Patient Total time spent is greater than 50% in coordination of care (as documented) at patient's floor/unit and/or counseling patient: - Subjective Interval history: Patient unable to verbalize at baseline. History obtained with mostly yes or no questions. She denies any abdominal pain, n/v, SOB, chest pain, fevers/chills. - Constitutional Vitals: Temp Pulse Resp BP Pulse Ox 96.8 F L 66 17 143/71 98 03/04/18 16:05 03/04/18 16:05 03/04/18 16:05 03/04/18 16:05 03/04/18 16:05 General appearance: Present: cooperative Exam: - Head Head exam: Present: normocephalic - Eye Eye exam: Present: conjuntiva pink - ENT ENT exam: Present: mucous membranes dry - Respiratory Respiratory exam: Present: rhonchi. Absent: rales, wheezes Absent breath sound on left side - Cardiovascular Cardiovascular exam: Present: distant heart sounds. Absent: tachycardia - GI/Abdominal GI/Abdominal exam: Present: hypoactive bowel sounds, soft - Extremities Exam Extremities exam: Present: warm. Absent: tenderness - Neurological Exam Neurological exam: Present: alert, speech deficit - Skin Skin exam: Present: dry, warm. Left central line erythema noted at skin. No edema, no tenderness, no purulent drainage. Internal Medicine: Result - Labs CBC & Chem 7: 05/09/18 05:10 03/04/18 05:10 Labs: Short CBC 03/04/18 Range/Units 05:10 WBC 16.7 H (4.3-11.1) K/mcL Hgb 11.1 L (11.5-15.4) g/dL Hct 33.0 L (35.3-44.9) % Plt Count 243 (140-400) K/mcL Neutrophils # 11.8 H (1.6-8.9) K/mcL BMP 03/04/18 05:10 Sodium 133 L Potassium 3.9 Chloride 106 Carbon Dioxide 26 BUN 19 Creatinine 0.61 Glucose 116 H Calcium 8.6 Urine 03/03/18 Range/Units 16:50 Urine Color Yellow (Yellow) Urine Clarity Clear (Clear) Urine pH 6.0 (5.0-8.0) pH Units Ur Specific [place] > 1.030 H (1.010-1.025) Urine Protein Trace (Neg-Trace) mg/dL Urine Glucose (UA) Normal (Normal) mg/dL - ABG Interpretation ABG results: PT/INR, D-dimer PT 13.6 Seconds (9.4-12.1) H 03/04/18 05:10 - VTE Reasons for not Prescribing Prophylaxis: Medical contraindication (Plan for surgery today) Documentation of Mechanical Device: Intermittent pneumatic compression device Consult Discharge Plan - Plan Referrals: Praneeth Mendieta MD [Non-Partnered Physician] -
[2018-03-04] MEDS ORDERED: *HR* Warfarin 2 MG TABLET PO ONE (18:00)
[2018-03-04] MEDS: Metoprolol XL (24 HR) Succ 50 MG TAB.ER.24H PO SCH (20:30)
[2018-03-05 01:17] LABS: Basophils # 0.1 K/mcL (0.0-0.2); Basophils % 0.3 %; Eosinophils # 0.4 K/mcL (0.0-0.6); Eosinophils % 2.8 %; Hemoglobin 11.1 g/dL (11.5-15.4); Immature Granulocytes % 1.5 % (0-4); Lymphocytes # 2.2 K/mcL (0.6-4.6); Lymphocytes % 14.2 %; Mean Corpuscular HGB Conc 32.6 g/dL (31.6-35.5); Mean Corpuscular Hemoglobin 29.7 pg (28.0-33.3); Mean Corpuscular Volume 90.9 fL (83.0-100.0); Mean Platelet Volume 10.7 fL (9.4-12.4); Monocytes # 2.2 K/mcL (0.0-1.3); Monocytes % 14.7 %; Neutrophils # 10.1 K/mcL (1.6-8.9); Platelet Count 273 K/mcL (140-400); Red Blood Count 3.74 M/mcL (3.82-4.97); Red Cell Distribution Width 14.3 % (11.5-14.5); Segmented Neutrophils % 66.5 %
[2018-03-05 01:22] LABS: INR 1.3; Prothrombin Time 13.7 Seconds (9.4-12.1)
[2018-03-05 01:35] LABS: BUN/Creatinine Ratio 40 (6-26); Blood Urea Nitrogen 26 mg/dL (8-23); Calcium 9.3 mg/dL (8.6-10.3); Carbon Dioxide 32 mEq/L (23-29); Chloride 97 mEq/L (98-107); Glucose 161 mg/dL (70-105); Osmolality,Calculated 292 (280-300); Potassium 3.9 mEq/L (3.5-5.1); Sodium 137 mEq/L (136-145); eGFR For African Americans > 60 (> 60); eGFR For Non-African Americans > 60 (> 60)
--- NOTE | 2018-03-05 07:56 | Internal Med Progress Note ---
Date of Encounter: 03/05/18 Time of Encounter: 07:50 - Assessment and plan (1) Leukocytosis Current Visit: Yes Status: Acute Assessment and plan: Has persistent leukocytosis. CXR questionable infiltrate versus atelectasis. WBCs improved to now 15k today, remains afebrile. ID following, recommendations appreciated Central line tip culture: No growth to date. - Blood cultures from central line and peripheral, - Emperic antibiotic therapy Vanc/Cefepime/Flagyl - Dispo plan pending Qualifiers: Leukocytosis type: unspecified Qualified Code(s): D72.829 - Elevated white blood cell count, unspecified (2) Pleural effusion Current Visit: Yes Status: Acute Assessment and plan: CT chest shows left side with near-complete atelectasis CO2 increased today, possibly retaining from restrictive lung Hold coumadin for now Will re evaluate in case thoracentesis needed today with cytology. (3) Pulmonary edema Current Visit: Yes Status: Resolved Assessment and plan: Currently on Lasix PO daily. 03/02/18 repeat 2v CXR done, results noted. Since patient having pleural effusion worsening, Given 40 mg IV Lasix yesterday Qualifiers: Chronicity: acute Qualified Code(s): J81.0 - Acute pulmonary edema (4) Large bowel obstruction Current Visit: Yes Status: Resolved Assessment and plan: POD # s/p right colectomy for obstructing mass, likely neoplastic, in the ascending colon Pathology of removed mass is still pending as of today. (5) Atrial fibrillation Current Visit: Yes Status: Chronic Assessment and plan: Hx of Afib [id number]: 7 HAS-BLED: 4 Has received 10 units FFP since 02/20/18 Currently Rate controlled. Restart Warfarin if no plans for thoracentesis. Continue Digoxin, Toprol Qualifiers: Atrial fibrillation type: chronic Qualified Code(s): I48.2 - Chronic atrial fibrillation (6) Hypertension Current Visit: Yes Status: Chronic Assessment and plan: Meds were changed to PO Appears to be controlled. Qualifiers: Hypertension type: essential hypertension Qualified Code(s): I10 - Essential (primary) hypertension (7) Colonic mass Current Visit: Yes Status: Acute Assessment and plan: CT abdomen pelvis showing evidence of high-grade obstruction of small and large bowel by large circumferential colonic mass; dilation of large bowel measuring up to 9.7 cm POD #6 s/p right colectomy for obstructing mass, likely neoplastic, in the ascending colon Path report for lymph node and colon surgical specimens still pending. (8) Hypokalemia Current Visit: Yes Status: Resolved Assessment and plan: WNL (9) Hypophosphatemia Current Visit: Yes Status: Resolved Assessment and plan: Replace as needed. (10) Ileus following gastrointestinal surgery Current Visit: Yes Status: Acute Assessment and plan: Was Weaned off TPN. Tolerating PO diet at this time. (11) Aphasia as late effect of stroke Current Visit: Yes Status: Chronic (12) DVT prophylaxis Current Visit: Yes Status: Acute Assessment and plan: SCDs for now. Plan to resume coumadin if no thoracentisis is planned for pleural effusion. - Time Spent With Patient Total time spent is greater than 50% in coordination of care (as documented) at patient's floor/unit and/or counseling patient: - Subjective Interval history: Patient unable to verbalize at baseline. History obtained with mostly yes or no questions. She denies any CP, SOB No n/v, fevers/chills. - Constitutional Vitals: Temp Pulse Resp BP Pulse Ox 97.9 F 71 16 142/62 94 03/05/18 07:29 03/05/18 07:29 03/05/18 07:29 03/05/18 07:29 03/05/18 07:29 General appearance: Present: cooperative. Absent: answers questions appropriately (Responds to yes or no questions from aphasia ) - Respiratory Respiratory exam: Present: decreased breath sounds (left sided) - Cardiovascular Cardiovascular exam: Present: irregular rhythm - Extremities Exam Extremities exam: Present: normal inspection. Absent: cyanotic, joint swelling , pedal edema Internal Medicine: Result - Labs CBC & Chem 7: 03/05/18 00:30 03/05/18 00:30 Labs: Short CBC 03/05/18 Range/Units 00:30 WBC 15.2 H (4.3-11.1) K/mcL Hgb 11.1 L (11.5-15.4) g/dL Hct 34.0 L (35.3-44.9) % Plt Count 273 (140-400) K/mcL Neutrophils # 10.1 H (1.6-8.9) K/mcL BMP 03/05/18 00:30 Sodium 137 Potassium 3.9 Chloride 97 L Carbon Dioxide 32 H BUN 26 H Creatinine 0.65 Glucose 161 H Calcium 9.3 - ABG Interpretation ABG results: PT/INR, D-dimer PT 13.7 Seconds (9.4-12.1) H 03/05/18 00:30 - VTE Reasons for not Prescribing Prophylaxis: Medical contraindication (Plan for surgery today) Documentation of Mechanical Device: Intermittent pneumatic compression device Consult Discharge Plan - Plan Referrals: Praneeth Mendieta MD [Non-Partnered Physician] -
[2018-03-05] MEDS ORDERED: metroNIDAZOLE 500 MG TABLET PO SCH (09:00)
[2018-03-05] MEDS: Furosemide 40 MG TABLET PO SCH (09:37)
[2018-03-05] MEDS: *HR* Digoxin 0.125 MG TABLET PO SCH (09:37)
[2018-03-05] MEDS: Cefepime HCl 2,000 MG in Water for inj. (sterile) 20 ML 20 ML IVP SCH (09:38)
--- NOTE | 2018-03-05 10:30 | Infectious Disease Progress No ---
Date of Encounter: 03/05/18 Time of Encounter: 10:27 - Assessment and Plan (1) Sepsis Current Visit: Yes Status: Acute The patient had two SIRS criteria. Etiology not entirely clear: pleural effusion vs. central line vs. ileus vs. reactive leukocytosis from malignancy vs. other. Improved. Tachycardia has resolved. WBC down to 15 this morning. Blood cultures drawn 03/03/18 from a peripheral source are NGTD x 2 sets. Blood cultures to be drawn from the central line are NGTD as well. The patient's mental status and aphasia limits my ability to obtain ROS from the patient. Per nursing, the patient's CVC insertion site was very angry looking under the Biopatch, but I do not appreciate any tenderness, warmth, or drainage. CXR completed 03/02/18 showed stable mild pulmonary vascular congestion without overt pulmonary edema and stable moderate left pleural effusion with associated left atelectasis or infiltrate. CT of the chest shows a moderate left pleural effusion with left lower lobe near-complete atelectasis. Peripheral smear showed reactive leukocytosis with toxic granules. Discontinue Cefepime Discontinue Flagyl. Discontinue Vancomycin. Observe off antibiotics. If the patient becomes febrile or worsens clinically, get blood cultures x 2 sets and re-start broad spectrum antibiotics. Monitor renal function and for drug toxicity and dose-adjust antibiotics. Qualifiers: Sepsis type: sepsis due to unspecified organism Qualified Code(s): A41.9 - Sepsis, unspecified organism (2) Pneumonia Current Visit: Yes Status: Ruled-out CT chest negative for PNA. Qualifiers: Pneumonia type: due to unspecified organism Laterality: bilateral Lung location: lower lobe of lung Qualified Code(s): J18.1 - Lobar pneumonia, unspecified organism (3) Pleural effusion Current Visit: Yes Status: Acute CT chest showed a moderate left sided effusion with near-complete atelectasis of the LLL. No hypoxia and respiratory distress noted. Consider pulmonology to evaluate. Recommend aggressive pulmonary toileting with ambulation and IS. 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 Status post exploratory celiotomy with DAVONTE, and right colectomy with stapled entero-colonic anastamosis 02/23/[address] Mendieta. Operative note reviewed. Pathology of the mass and adjacent lymph node is pending. Spoke with pathology staff who states Dr. Mendieta has been made aware of diagnosis, but additional testing is being done on the specimen and official results cannot be released. (5) Small bowel obstruction Current Visit: Yes Status: Acute Secondary to large colonic mass. Status post right colectomy 02/23/18. (6) Large bowel obstruction Current Visit: Yes Status: Resolved Secondary to large colonic mass. Status post right colectomy 02/23/18. (7) UTI (urinary tract infection) Current Visit: Yes Status: Acute Asymptomatic candiduria. Urine culture grew C. kefyr. No indication to treat at this time. Repeat UA positive for TNTC WBC and bacteria. Repeat urine culture positive for yeast species. Not sure if the patient is having urinary symptoms since her aphasia limits her ability to provide ROS information, but candiduria is unlikely the source of the patient's leukocytosis since it is getting better without being treated. Qualifiers: Urinary tract infection type: acute cystitis Hematuria presence: without hematuria Qualified Code(s): N30.00 - Acute cystitis without hematuria (8) Ileus following gastrointestinal surgery Current Visit: Yes Status: Acute Likely secondary to recent abdominal procedure. AAS completed 02/27/18 showed findings consistent with post-op ileus. Appears improved. The patient started having bowel movements 02/28/18 with loose diarrhea stools, which has resolved. CT abdomen and pelvis continues to show findings consistent with post-op ileus. Had three bowl movements yesterday per nursing. Further management per the surgery team. (9) Coagulopathy Current Visit: Yes Status: Resolved INR elevated at 5.1 on admission. Resolved. (10) Pulmonary edema Current Visit: Yes Status: Resolved CXR completed 03/02/18 showed stable mild pulmonary vascular congestion without overt pulmonary edema. Likely secondary to large amount of IV fluids pre/intra/post-op. 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 Qualifiers: CVA mechanism: embolism Precerebral and cerebral artery: middle cerebral artery Laterality of affected vessel: left Qualified Code(s): I63.412 - Cerebral infarction due to embolism of left middle cerebral artery (12) Atrial fibrillation Current Visit: Yes Status: Chronic Rate controlled. Management per the primary team. Qualifiers: Atrial fibrillation type: chronic Qualified Code(s): I48.2 - Chronic atrial fibrillation (13) Hypertension Current Visit: Yes Status: Chronic Qualifiers: Hypertension type: essential hypertension Qualified Code(s): I10 - Essential (primary) hypertension (14) History of mitral valve replacement with bioprosthetic valve Current Visit: Yes Status: Chronic (15) Aphasia as late effect of stroke Current Visit: Yes Status: Chronic - Subjective Interval history: Patient seen and examined. No acute events noted overnight. Patient resting in bed with family at bedside. She remains aphasic, but does answer yes/no questions. Denies any pain or urinary complaints. Denies any shortness of breath or cough. Denies any nausea or vomiting. Three bowel movements noted yesterday per documentation. Infect Dis PN-Objective Data - Labs CBC & Chem 7: 03/05/18 00:30 03/05/18 00:30 Labs: Laboratory Results - last 24 hr 03/03/18 03/03/18 03/03/18 08:32 10:47 13:11 WBC RBC Hgb Hct MCV MCH MCHC RDW Plt Count MPV Immature Gran % Seg Neutrophils % Lymphocytes % Monocytes % Eosinophils % Basophils % Neutrophils # Lymphocytes # Monocytes # Eosinophils # Basophils # PT INR Sodium Potassium Chloride Carbon Dioxide BUN Creatinine Est GFR ( Amer) Est GFR (Non-Af Amer) BUN/Creatinine Ratio Glucose POC Glucose 130 H 129 H Calculated Osmolality Calcium Procalcitonin 1.35 H Vancomycin Trough 03/05/18 03/05/18 03/05/18 00:30 00:30 00:30 WBC 15.2 H RBC 3.74 L Hgb 11.1 L Hct 34.0 L MCV 90.9 MCH 29.7 MCHC 32.6 RDW 14.3 Plt Count 273 MPV 10.7 Immature Gran % 1.5 Seg Neutrophils % 66.5 Lymphocytes % 14.2 Monocytes % 14.7 Eosinophils % 2.8 Basophils % 0.3 Neutrophils # 10.1 H Lymphocytes # 2.2 Monocytes # 2.2 H Eosinophils # 0.4 Basophils # 0.1 PT 13.7 H INR 1.3 Sodium Potassium Chloride Carbon Dioxide BUN Creatinine Est GFR ( Amer) Est GFR (Non-Af Amer) BUN/Creatinine Ratio Glucose POC Glucose Calculated Osmolality Calcium Procalcitonin Vancomycin Trough 16 H 03/05/18 00:30 WBC RBC Hgb Hct MCV MCH MCHC RDW Plt Count MPV Immature Gran % Seg Neutrophils % Lymphocytes % Monocytes % Eosinophils % Basophils % Neutrophils # Lymphocytes # Monocytes # Eosinophils # Basophils # PT INR Sodium 137 Potassium 3.9 Chloride 97 L Carbon Dioxide 32 H BUN 26 H Creatinine 0.65 Est GFR ( Amer) > 60 Est GFR (Non-Af Amer) > 60 BUN/Creatinine Ratio 40 H Glucose 161 H POC Glucose Calculated Osmolality 292 Calcium 9.3 Procalcitonin Vancomycin Trough Cultures: Cultures 03/03/18 11:55 Blood Culture - Preliminary Central Venous Catheter No growth. 03/03/18 11:55 Blood Culture - Preliminary Central Venous Catheter No growth. 03/03/18 08:32 Blood Culture - Preliminary Peripheral Venipuncture No growth. 03/03/18 16:50 Urine Culture - Preliminary Urine,Clean Catch Yeast Species 03/03/18 11:55 Catheter Tip Culture - Preliminary Intravenous or Arterial Cath No growth. Serology 03/03/18 03/01/18 Range/Units 16:50 14:05 Urine Color Yellow (Yellow) Urine Clarity Clear (Clear) Urine pH 6.0 (5.0-8.0) pH Units Ur Specific [place] > 1.030 H (1.010-1.025) Urine Protein Trace (Neg-Trace) mg/dL Urine Glucose (UA) Normal (Normal) mg/dL Urine Ketones Negative (Negative) mg/dL Urine Blood Negative (Negative) Urine Nitrite Negative (Negative) Urine Bilirubin Negative (Negative) Urine Urobilinogen Normal (Normal) mg/dL Ur Leukocyte Esterase Moderate H (Negative) Urine Microscopic RBC 0-3 (0-3) per hpf Urine Microscopic WBC TNTC H (0-3) per hpf Ur Squamous Epith Cells Few (None-Few) per lpf Urine Bacteria None Seen (None-Few) per hpf Ur Culture Indicated? YES A (NO) Stl C. diff Tox B Gene Negative (Negative) Exam - Constitutional Vitals: Temp Pulse Resp BP Pulse Ox 97.9 F 71 16 142/62 94 03/05/18 07:29 03/05/18 07:29 03/05/18 07:29 03/05/18 07:29 03/05/18 07:29 General appearance: average body habitus, cooperative, no acute distress - Head Head exam: Present: atraumatic, normal inspection, normocephalic - Eye Eye exam: Present: EOMI, normal appearance, PERRL Pupils: Present: normal accommodation - ENT ENT exam: Present: mucous membranes moist - Neck Neck exam: Present: normal inspection - Respiratory Respiratory exam: Present: decreased breath sounds (left base), CTAB. Absent: rales, respiratory distress, rhonchi, wheezes - Cardiovascular Cardiovascular exam: Present: irregular rhythm. Absent: tachycardia - GI/Abdominal GI/Abdominal exam: Present: normal bowel sounds, soft, tenderness (generalized) . 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 No redness, warmth, or erythema noted. - Extremities Exam Extremities exam: Present: normal inspection. Absent: joint swelling, pedal edema, tenderness - Neurological Exam Neurological exam: Present: alert, no focal deficits, speech deficit ( expressive aphasia). Absent: facial droop - Psychiatric Psychiatric exam: Present: normal affect, normal mood - Skin Skin exam: Present: dry, intact, normal color, warm - VTE Reasons for not Prescribing Prophylaxis: Medical contraindication (Plan for surgery today) Documentation of Mechanical Device: Intermittent pneumatic compression device Consult Discharge Plan - Plan Referrals: Praneeth Mendieta MD [Non-Partnered Physician] - - Attending Attestation I examined this patient and my medical decision-making was reviewed with the Resident Physician. I agree with the documented findings, disposition and treatment plan as described except to the extent set forth below.
[2018-03-05] MEDS ORDERED: Aminoglycoside Consult 1 EACH MC ONE (13:46)
--- NOTE | 2018-03-05 17:13 | General Surgery Progress Note ---
Date of Encounter: 03/05/18 Time of Encounter: 13:30 Subjective Narrative: General Surgery - POD #10 - this is a delayed note Patient appears to be in no acute distress; remains afebrile, pulse 71 - 85, atrial fibrillation; respiratory rate 17, blood pressure 135/72. Lungs: Left lung base appears to be clearing as breath sounds are more audible in this area; the remainder of the lungs are clear Abdomen: Soft, no obvious tenderness; midline incision stable/intact. Active bowel sounds. Patient tolerating regular diet with adequate oral intake; bowel movements described as ranging from the loose to soft/formed Pathology: Final results still pending completion of several immunochemical stains; the specimen was clearly neoplastic. Further characterization and staging still pending Microbiology: All cultures negative except for urine showing the presence of [place]; preoperative urine culture demonstrated presence of [place] kefyr. Central venous line tip demonstrating no growth; blood cultures also demonstrating no growth Labs: Leukocytosis continues to improve, 15.2; neutrophilia also diminishing 10.1, monocytes remained elevated at 2.2% PT 13.7, INR 1.3 Electrolytes notable for a chloride of 97, bicarbonate 32 - Vicryl response to continued diuresis with Lasix. BUN has risen to 26 but creatinine remains stable at 0.65. Impression/Plan: Postoperative day #10 - status post right colectomy for an obstructing neoplasm ascending colon. Patient appears to be doing well Leukocytosis resolving; no fevers or chills. Antibiotics have been discontinued; patient to be monitored off antibiotics for another 24 hours for potential transfer to ECF. I have discussed this with Dr Cameron, Hospitalist, as well as the patient and her son who was present during my examination of the patient. Consider chest x-ray in a.m., prior to discharge, for continued follow-up left pleural effusion with compressive atelectasis of the left lower lobe Objective Vital Signs - Last 8 Hours Temp Pulse Resp BP Pulse Ox 03/05/18 14:49 97.9 F 72 17 135/72 97 03/05/18 12:18 97.7 F 85 18 139/72 90 Intake and Output 03/05/18 03/05/18 03/05/18 07:59 15:59 23:59 Intake Total 250 / 250 150 / 150 Balance 250 / 250 150 / 150 Intake: IV Fluids 250 / 250 Vancocin 1,000 MG In 0.9 % 250 / 250 Sodium Chloride 250 ML @ 167 mls/hr IVPB Q12H MEIR Rx#: [id number] Oral 150 / 150 Other: # Urine Diapers 1 1 - Labs 03/05/18 00:30 03/05/18 00:30 Diabetes panel 03/05/18 Range/Units 00:30 Sodium 137 (136-145) mEq/L Potassium 3.9 (3.5-5.1) mEq/L Chloride 97 L (98-107) mEq/L Carbon Dioxide 32 H (23-29) mEq/L BUN 26 H (8-23) mg/dL Creatinine 0.65 (0.60-1.20) mg/dL Glucose 161 H (70-105) mg/dL Calcium 9.3 (8.6-10.3) mg/dL Calcium panel 03/05/18 Range/Units 00:30 Calcium 9.3 (8.6-10.3) mg/dL Pituitary panel 03/05/18 Range/Units 00:30 Sodium 137 (136-145) mEq/L Potassium 3.9 (3.5-5.1) mEq/L Chloride 97 L (98-107) mEq/L Carbon Dioxide 32 H (23-29) mEq/L BUN 26 H (8-23) mg/dL Creatinine 0.65 (0.60-1.20) mg/dL Glucose 161 H (70-105) mg/dL Calcium 9.3 (8.6-10.3) mg/dL Adrenal panel 03/05/18 Range/Units 00:30 Sodium 137 (136-145) mEq/L Potassium 3.9 (3.5-5.1) mEq/L Chloride 97 L (98-107) mEq/L Carbon Dioxide 32 H (23-29) mEq/L BUN 26 H (8-23) mg/dL Creatinine 0.65 (0.60-1.20) mg/dL Glucose 161 H (70-105) mg/dL Calcium 9.3 (8.6-10.3) mg/dL - VTE Reasons for not Prescribing Prophylaxis: Medical contraindication (Plan for surgery today) Documentation of Mechanical Device: Intermittent pneumatic compression device Consult Discharge Plan - Plan Referrals: Praneeth Mendieta MD [Non-Partnered Physician] -
[2018-03-05] MEDS ORDERED: *HR* Warfarin 2 MG TABLET PO ONE (18:00)
[2018-03-05] MEDS ORDERED: Warfarin perPT PO PRN (18:00)
[2018-03-05] MEDS: Metoprolol XL (24 HR) Succ 50 MG TAB.ER.24H PO SCH (20:06)
[2018-03-06 05:43] LABS: Basophils # 0.1 K/mcL (0.0-0.2); Basophils % 0.3 %; Eosinophils # 0.4 K/mcL (0.0-0.6); Eosinophils % 2.9 %; Hematocrit 34.4 % (35.3-44.9); Hemoglobin 11.6 g/dL (11.5-15.4); Lymphocytes # 2.2 K/mcL (0.6-4.6); Lymphocytes % 14.9 %; Mean Corpuscular HGB Conc 33.7 g/dL (31.6-35.5); Mean Corpuscular Hemoglobin 30.7 pg (28.0-33.3); Mean Platelet Volume 10.5 fL (9.4-12.4); Monocytes # 1.9 K/mcL (0.0-1.3); Platelet Count 291 K/mcL (140-400); Red Blood Count 3.78 M/mcL (3.82-4.97); Red Cell Distribution Width 14.5 % (11.5-14.5); Segmented Neutrophils % 67.9 %
[2018-03-06 05:48] LABS: INR 1.3; Prothrombin Time 13.6 Seconds (9.4-12.1)
[2018-03-06 06:03] LABS: BUN/Creatinine Ratio 41 (6-26); Blood Urea Nitrogen 26 mg/dL (8-23); Calcium 9.5 mg/dL (8.6-10.3); Carbon Dioxide 30 mEq/L (23-29); Chloride 99 mEq/L (98-107); Glucose 128 mg/dL (70-105); Osmolality,Calculated 284 (280-300); Potassium 4.2 mEq/L (3.5-5.1); Sodium 134 mEq/L (136-145); eGFR For African Americans > 60 (> 60); eGFR For Non-African Americans > 60 (> 60)
--- NOTE | 2018-03-06 08:42 | Infectious Disease Progress No ---
Date of Encounter: 03/06/18 Time of Encounter: 08:37 - Assessment and Plan (1) Sepsis Current Visit: Yes Status: Acute The patient had two SIRS criteria. Etiology not entirely clear: pleural effusion vs. central line vs. ileus vs. reactive leukocytosis from malignancy vs. other. Improved. Tachycardia has resolved. WBC continues to trend down. Blood cultures drawn 03/03/18 from a peripheral source are NGTD x 2 sets. Blood cultures to be drawn from the central line are NGTD as well. The patient's mental status and aphasia limits my ability to obtain ROS from the patient. Per nursing, the patient's CVC insertion site was very angry looking under the Biopatch, but I do not appreciate any tenderness, warmth, or drainage. CXR completed 03/02/18 showed stable mild pulmonary vascular congestion without overt pulmonary edema and stable moderate left pleural effusion with associated left atelectasis or infiltrate. CT of the chest shows a moderate left pleural effusion with left lower lobe near-complete atelectasis. Peripheral smear showed reactive leukocytosis with toxic granules. Continue to observe off antibiotics. If the patient becomes febrile or worsens clinically, get blood cultures x 2 sets and re-start broad spectrum antibiotics. Monitor renal function and for drug toxicity and dose-adjust antibiotics. Qualifiers: Sepsis type: sepsis due to unspecified organism Qualified Code(s): A41.9 - Sepsis, unspecified organism (2) Pneumonia Current Visit: Yes Status: Ruled-out CT chest negative for PNA. Qualifiers: Pneumonia type: due to unspecified organism Laterality: bilateral Lung location: lower lobe of lung Qualified Code(s): J18.1 - Lobar pneumonia, unspecified organism (3) Pleural effusion Current Visit: Yes Status: Acute CT chest showed a moderate left sided effusion with near-complete atelectasis of the LLL. No hypoxia and respiratory distress noted. Consider pulmonology to evaluate. Repeat CXR this morning. Recommend aggressive pulmonary toileting with ambulation and IS. 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 Status post exploratory celiotomy with DAVONTE, and right colectomy with stapled entero-colonic anastamosis 02/23/[address] Mendieta. Operative note reviewed. Pathology of the mass and adjacent lymph node is pending. (5) Small bowel obstruction Current Visit: Yes Status: Acute Secondary to large colonic mass. Status post right colectomy 02/23/18. (6) Large bowel obstruction Current Visit: Yes Status: Resolved Secondary to large colonic mass. Status post right colectomy 02/23/18. (7) UTI (urinary tract infection) Current Visit: Yes Status: Acute Asymptomatic candiduria. Urine culture grew C. kefyr. No indication to treat at this time. Repeat UA positive for TNTC WBC and bacteria. Repeat urine culture positive for yeast species. Not sure if the patient is having urinary symptoms since her aphasia limits her ability to provide ROS information, but candiduria is unlikely the source of the patient's leukocytosis since it is getting better without being treated. Qualifiers: Urinary tract infection type: acute cystitis Hematuria presence: without hematuria Qualified Code(s): N30.00 - Acute cystitis without hematuria (8) Ileus following gastrointestinal surgery Current Visit: Yes Status: Acute Likely secondary to recent abdominal procedure. AAS completed 02/27/18 showed findings consistent with post-op ileus. Appears improved. The patient started having bowel movements 02/28/18 with loose diarrhea stools, which has resolved. CT abdomen and pelvis continues to show findings consistent with post-op ileus. Had three bowl movements yesterday per nursing. Further management per the surgery team. (9) Coagulopathy Current Visit: Yes Status: Resolved INR elevated at 5.1 on admission. Resolved. (10) Pulmonary edema Current Visit: Yes Status: Resolved CXR completed 03/02/18 showed stable mild pulmonary vascular congestion without overt pulmonary edema. Likely secondary to large amount of IV fluids pre/intra/post-op. 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 Qualifiers: CVA mechanism: embolism Precerebral and cerebral artery: middle cerebral artery Laterality of affected vessel: left Qualified Code(s): I63.412 - Cerebral infarction due to embolism of left middle cerebral artery (12) Atrial fibrillation Current Visit: Yes Status: Chronic Rate controlled. Management per the primary team. Qualifiers: Atrial fibrillation type: chronic Qualified Code(s): I48.2 - Chronic atrial fibrillation (13) Hypertension Current Visit: Yes Status: Chronic Qualifiers: Hypertension type: essential hypertension Qualified Code(s): I10 - Essential (primary) hypertension (14) History of mitral valve replacement with bioprosthetic valve Current Visit: Yes Status: Chronic (15) Aphasia as late effect of stroke Current Visit: Yes Status: Chronic - Subjective Interval history: Patient seen and examined. No acute events noted overnight. Patient resting in bed with eyes closed. She remains aphasic, but does answer yes/no questions , but not sure how reliable she is since she shakes her head no at the same time. Denies any pain or urinary complaints. Denies any shortness of breath or cough. Denies any nausea or vomiting. States yes to abdominal pain. Infect Dis PN-Objective Data - Labs CBC & Chem 7: 03/06/18 05:33 03/06/18 05:33 Labs: Laboratory Results - last 24 hr 03/03/18 03/06/18 03/06/18 08:32 05:33 05:33 WBC 14.7 H RBC 3.78 L Hgb 11.6 Hct 34.4 L MCV 91.0 MCH 30.7 MCHC 33.7 RDW 14.5 Plt Count 291 MPV 10.5 Immature Gran % 1.0 Seg Neutrophils % 67.9 Lymphocytes % 14.9 Monocytes % 13.0 Eosinophils % 2.9 Basophils % 0.3 Neutrophils # 10.0 H Lymphocytes # 2.2 Monocytes # 1.9 H Eosinophils # 0.4 Basophils # 0.1 PT 13.6 H INR 1.3 Sodium Potassium Chloride Carbon Dioxide BUN Creatinine Est GFR ( Amer) Est GFR (Non-Af Amer) BUN/Creatinine Ratio Glucose Calculated Osmolality Calcium Procalcitonin 1.35 H 03/06/18 05:33 WBC RBC Hgb Hct MCV MCH MCHC RDW Plt Count MPV Immature Gran % Seg Neutrophils % Lymphocytes % Monocytes % Eosinophils % Basophils % Neutrophils # Lymphocytes # Monocytes # Eosinophils # Basophils # PT INR Sodium 134 L Potassium 4.2 Chloride 99 Carbon Dioxide 30 H BUN 26 H Creatinine 0.63 Est GFR ( Amer) > 60 Est GFR (Non-Af Amer) > 60 BUN/Creatinine Ratio 41 H Glucose 128 H Calculated Osmolality 284 Calcium 9.5 Procalcitonin Cultures: Cultures 03/03/18 11:55 Catheter Tip Culture - Final Intravenous or Arterial Cath No growth. 03/03/18 11:55 Blood Culture - Preliminary Central Venous Catheter No growth. 03/03/18 11:55 Blood Culture - Preliminary Central Venous Catheter No growth. 03/03/18 08:32 Blood Culture - Preliminary Peripheral Venipuncture No growth. 03/03/18 16:50 Urine Culture - Preliminary Urine,Clean Catch Yeast Species Serology 03/03/18 03/01/18 Range/Units 16:50 14:05 Urine Color Yellow (Yellow) Urine Clarity Clear (Clear) Urine pH 6.0 (5.0-8.0) pH Units Ur Specific [place] > 1.030 H (1.010-1.025) Urine Protein Trace (Neg-Trace) mg/dL Urine Glucose (UA) Normal (Normal) mg/dL Urine Ketones Negative (Negative) mg/dL Urine Blood Negative (Negative) Urine Nitrite Negative (Negative) Urine Bilirubin Negative (Negative) Urine Urobilinogen Normal (Normal) mg/dL Ur Leukocyte Esterase Moderate H (Negative) Urine Microscopic RBC 0-3 (0-3) per hpf Urine Microscopic WBC TNTC H (0-3) per hpf Ur Squamous Epith Cells Few (None-Few) per lpf Urine Bacteria None Seen (None-Few) per hpf Ur Culture Indicated? YES A (NO) Stl C. diff Tox B Gene Negative (Negative) - Impressions Impressions Abdomen/Pelvis CT 03/03/18 13:30 IMPRESSION: Moderate left pleural effusion with left lower lobe near complete atelectasis. Status post right hemicolectomy. No evidence of anastomotic breakdown, free air or obstruction. Mild ileus of the small and large bowel. Mild abdominal and pelvic ascites likely related to recent surgery. No discrete drainable fluid collection to suggest an abscess. Postoperative seroma in the left anterior abdominal wall at the site of prior left anterior abdominal wall hernia repair at the site of prior ostomy. D/ / 03/03/2018 15:07:29 Brennan Marion MD / [email or web address] Interpreting Provider: Brennan Marion MD Chest CT 03/03/18 13:30 IMPRESSION: Moderate left pleural effusion with left lower lobe near complete atelectasis. Status post right hemicolectomy. No evidence of anastomotic breakdown, free air or obstruction. Mild ileus of the small and large bowel. Mild abdominal and pelvic ascites likely related to recent surgery. No discrete drainable fluid collection to suggest an abscess. Postoperative seroma in the left anterior abdominal wall at the site of prior left anterior abdominal wall hernia repair at the site of prior ostomy. D/ / 03/03/2018 15:07:29 Brennan Marion MD / [email or web address] Interpreting Provider: Brennan Marion MD Exam - Constitutional Vitals: Temp Pulse Resp BP Pulse Ox 97.0 F L 90 16 163/78 96 03/06/18 08:01 03/06/18 08:01 03/06/18 08:01 03/06/18 08:01 03/06/18 08:01 General appearance: average body habitus, cooperative, no acute distress - Head Head exam: Present: atraumatic, normal inspection, normocephalic - Eye Eye exam: Present: EOMI, normal appearance, PERRL Pupils: Present: normal accommodation - ENT Additional comments: Unable to assess due to patient refusing this part of exam. - Neck Neck exam: Present: normal inspection - Respiratory Respiratory exam: Present: CTAB. Absent: rales, respiratory distress, rhonchi, wheezes - Cardiovascular Cardiovascular exam: Present: irregular rhythm, +S1, +S2. Absent: tachycardia - GI/Abdominal GI/Abdominal exam: Present: normal bowel sounds, soft, tenderness (generalized) . Absent: distended Additional comments: Midline abdominal incision with wound edges well-approximated. No redness, warmth, drainage noted. - Extremities Exam Extremities exam: Present: normal inspection. Absent: joint swelling, pedal edema, tenderness - Neurological Exam Neurological exam: Present: alert, no focal deficits, speech deficit ( Expressive aphasia). Absent: facial droop - Psychiatric Psychiatric exam: Present: normal affect, normal mood - Skin Skin exam: Present: dry, intact, normal color, warm - VTE Reasons for not Prescribing Prophylaxis: Medical contraindication (Plan for surgery today) Documentation of Mechanical Device: Intermittent pneumatic compression device Consult Discharge Plan - Plan Referrals: Praneeth Mendieta MD [Non-Partnered Physician] - - Attending Attestation I examined this patient and my medical decision-making was reviewed with the Resident Physician. I agree with the documented findings, disposition and treatment plan as described except to the extent set forth below.
[2018-03-06] MEDS: amLODIPine 5 MG TABLET PO SCH (10:13)
[2018-03-06] MEDS: *HR* Digoxin 0.125 MG TABLET PO SCH (10:13)
[2018-03-06] MEDS: Furosemide 40 MG TABLET PO SCH (10:13)
--- NOTE | 2018-03-06 15:33 | Internal Med Progress Note ---
Date of Encounter: 03/06/18 Time of Encounter: 15:27 - Assessment and plan (1) Leukocytosis Current Visit: Yes Status: Acute Assessment and plan: Has persistent leukocytosis, fluctuates Central line tip culture: No growth to date. Blood cultures from central line and peripheral, - negative to date WBC trend down despite witholding antibiotics Patient remains afebrile and is non-toxic appearing This is likely malignancy related. Will not continue antibiotics biopsy of lymph node of colon is still pending. Medically stable; [facility] has not accepted patient, seeking discharge to another SNF. Currently start of weekend, anticipate discharge 2-3 days. Qualifiers: Leukocytosis type: unspecified Qualified Code(s): D72.829 - Elevated white blood cell count, unspecified (2) Pleural effusion Current Visit: Yes Status: Acute Assessment and plan: CT chest shows left side pleural effusion moderate to large Discussed case with Surgery Dr. Mendieta who has discussed this with Radiology. With aggressive pulmonary toileting this should improve She is working with I.S. and increasing activity No acute respiratory distress (3) Pulmonary edema Current Visit: Yes Status: Resolved Assessment and plan: Currently on Lasix PO daily. 03/02/18 repeat 2v CXR done, results noted. Qualifiers: Chronicity: acute Qualified Code(s): J81.0 - Acute pulmonary edema (4) Large bowel obstruction Current Visit: Yes Status: Resolved Assessment and plan: s/p right colectomy for obstructing mass, likely neoplastic, in the ascending colon Pathology of removed mass is still pending as of today. (5) Atrial fibrillation Current Visit: Yes Status: Chronic Assessment and plan: Hx of Afib [id number]: 7 HAS-BLED: 4 Has received 10 units FFP since 02/20/18 Currently Rate controlled. Restart Warfarin if no plans for thoracentesis. Continue Digoxin, Toprol Qualifiers: Atrial fibrillation type: chronic Qualified Code(s): I48.2 - Chronic atrial fibrillation (6) Hypertension Current Visit: Yes Status: Chronic Assessment and plan: Meds were changed to PO Appears to be controlled. Qualifiers: Hypertension type: essential hypertension Qualified Code(s): I10 - Essential (primary) hypertension (7) Colonic mass Current Visit: Yes Status: Acute Assessment and plan: CT abdomen pelvis showing evidence of high-grade obstruction of small and large bowel by large circumferential colonic mass; dilation of large bowel measuring up to 9.7 cm POD #6 s/p right colectomy for obstructing mass, likely neoplastic, in the ascending colon Path report for lymph node and colon surgical specimens still pending. (8) Hypokalemia Current Visit: Yes Status: Resolved Assessment and plan: WNL (9) Hypophosphatemia Current Visit: Yes Status: Resolved Assessment and plan: Replace as needed. (10) Ileus following gastrointestinal surgery Current Visit: Yes Status: Acute Assessment and plan: Was Weaned off TPN. Tolerating PO diet at this time. (11) Aphasia as late effect of stroke Current Visit: Yes Status: Chronic (12) DVT prophylaxis Current Visit: Yes Status: Acute Assessment and plan: SCDs for now. Plan to resume coumadin if no thoracentisis is planned for pleural effusion. - Time Spent With Patient Total time spent is greater than 50% in coordination of care (as documented) at patient's floor/unit and/or counseling patient: - Subjective Interval history: Patient unable to verbalize at baseline. History obtained with mostly yes or no questions. She denies any CP, SOB, No n/v, fevers/chills. - Constitutional Vitals: Temp Pulse Resp BP Pulse Ox 97.6 F 67 16 128/79 94 03/06/18 11:22 03/06/18 11:22 03/06/18 11:22 03/06/18 11:22 03/06/18 11:22 General appearance: Present: cooperative. Absent: answers questions appropriately (Responds to yes or no questions from aphasia ) Exam: - Respiratory Respiratory exam: Present: decreased breath sounds (left sided) - Cardiovascular Cardiovascular exam: Present: irregular rhythm - Extremities Exam Extremities exam: Present: normal inspection. Absent: cyanotic, joint swelling , pedal edema Internal Medicine: Result - Labs CBC & Chem 7: 03/06/18 05:33 03/06/18 05:33 Labs: Short CBC 03/06/18 Range/Units 05:33 WBC 14.7 H (4.3-11.1) K/mcL Hgb 11.6 (11.5-15.4) g/dL Hct 34.4 L (35.3-44.9) % Plt Count 291 (140-400) K/mcL Neutrophils # 10.0 H (1.6-8.9) K/mcL BMP 03/06/18 05:33 Sodium 134 L Potassium 4.2 Chloride 99 Carbon Dioxide 30 H BUN 26 H Creatinine 0.63 Glucose 128 H Calcium 9.5 - ABG Interpretation ABG results: PT/INR, D-dimer PT 13.6 Seconds (9.4-12.1) H 03/06/18 05:33 - Impressions Impressions Abdomen/Pelvis CT 03/03/18 13:30 IMPRESSION: Moderate left pleural effusion with left lower lobe near complete atelectasis. Status post right hemicolectomy. No evidence of anastomotic breakdown, free air or obstruction. Mild ileus of the small and large bowel. Mild abdominal and pelvic ascites likely related to recent surgery. No discrete drainable fluid collection to suggest an abscess. Postoperative seroma in the left anterior abdominal wall at the site of prior left anterior abdominal wall hernia repair at the site of prior ostomy. D/ / 03/03/2018 15:07:29 Brennan Marion MD / [email or web address] Interpreting Provider: Brennan Marion MD Chest CT 03/03/18 13:30 IMPRESSION: Moderate left pleural effusion with left lower lobe near complete atelectasis. Status post right hemicolectomy. No evidence of anastomotic breakdown, free air or obstruction. Mild ileus of the small and large bowel. Mild abdominal and pelvic ascites likely related to recent surgery. No discrete drainable fluid collection to suggest an abscess. Postoperative seroma in the left anterior abdominal wall at the site of prior left anterior abdominal wall hernia repair at the site of prior ostomy. D/ / 03/03/2018 15:07:29 Brennan Marion MD / [email or web address] Interpreting Provider: Brennan Marion MD - VTE Reasons for not Prescribing Prophylaxis: Medical contraindication (Plan for surgery today) Documentation of Mechanical Device: Intermittent pneumatic compression device Consult Discharge Plan - Plan Referrals: Praneeth Mendieta MD [Non-Partnered Physician] -
[2018-03-06] MEDS ORDERED: *HR* Warfarin 2 MG TABLET PO ONE (18:00)
[2018-03-06] MEDS: Metoprolol XL (24 HR) Succ 50 MG TAB.ER.24H PO SCH (20:05)
[2018-03-07 05:57] LABS: INR 1.3; Prothrombin Time 14.1 Seconds (9.4-12.1)
--- NOTE | 2018-03-07 07:22 | Internal Med Progress Note ---
Date of Encounter: 03/07/18 Time of Encounter: 07:19 - Assessment and plan (1) Leukocytosis Current Visit: Yes Status: Acute Assessment and plan: Has persistent leukocytosis, fluctuates Central line tip culture: No growth to date. Blood cultures from central line and peripheral, - negative to date WBCs were trending down without antibiotics. Likely fluctuation in WBC related to malignancy Patient afebrile and is non-toxic appearing Antibiotics have been discontinued Follow-up colon lymph node biopsy Medically stable; [facility] has not accepted patient, seeking discharge to another SNF. Currently start of weekend, anticipate discharge 1-2 days. Qualifiers: Leukocytosis type: unspecified Qualified Code(s): D72.829 - Elevated white blood cell count, unspecified (2) Pleural effusion Current Visit: Yes Status: Acute Assessment and plan: CT chest shows left side pleural effusion moderate to large Discussed case with Surgery Dr. Mendieta who has discussed CT findings with Radiology, and suggested that this should improve with increasing activity. With aggressive pulmonary toileting this should improve She is working with [employer]. and increasing activity No acute respiratory distress Continue to increase activity (3) Pulmonary edema Current Visit: Yes Status: Resolved Assessment and plan: Currently on Lasix PO daily. 03/02/18 repeat 2v CXR done, results noted. Qualifiers: Chronicity: acute Qualified Code(s): J81.0 - Acute pulmonary edema (4) Large bowel obstruction Current Visit: Yes Status: Resolved Assessment and plan: s/p right colectomy for obstructing mass, likely neoplastic, in the ascending colon Pathology of removed mass (02/23/18) is still pending as of today. (5) Atrial fibrillation Current Visit: Yes Status: Chronic Assessment and plan: Hx of Afib [id number]: 7 HAS-BLED: 4 Has received 10 units FFP since 02/20/18 Currently Rate controlled. Continue Digoxin, Toprol Warfarin has been restarted, trend INR to goal 2-3 Qualifiers: Atrial fibrillation type: chronic Qualified Code(s): I48.2 - Chronic atrial fibrillation (6) Hypertension Current Visit: Yes Status: Chronic Assessment and plan: Meds were changed to PO Appears to be controlled. Qualifiers: Hypertension type: essential hypertension Qualified Code(s): I10 - Essential (primary) hypertension (7) Colonic mass Current Visit: Yes Status: Acute Assessment and plan: CT abdomen pelvis showing evidence of high-grade obstruction of small and large bowel by large circumferential colonic mass; dilation of large bowel measuring up to 9.7 cm S/p right colectomy for obstructing mass, likely neoplastic, in the ascending colon Path report for lymph node and colon biopsy (02/23/18) still pending. (8) Hypokalemia Current Visit: Yes Status: Resolved Assessment and plan: WNL (9) Hypophosphatemia Current Visit: Yes Status: Resolved Assessment and plan: Replace as needed. (10) Ileus following gastrointestinal surgery Current Visit: Yes Status: Acute Assessment and plan: Was Weaned off TPN. Tolerating PO diet at this time. (11) Aphasia as late effect of stroke Current Visit: Yes Status: Chronic (12) DVT prophylaxis Current Visit: Yes Status: Acute Assessment and plan: Restarted Warfarin - Time Spent With Patient Total time spent is greater than 50% in coordination of care (as documented) at patient's floor/unit and/or counseling patient: - Subjective Interval history: Patient unable to verbalize at baseline. History obtained with mostly yes or no questions. Patient has no acute issues today. Patient medically stable but remains here for placement issues. - Constitutional Vitals: Temp Pulse Resp BP Pulse Ox 97.9 F 62 15 136/75 94 03/07/18 03:38 03/07/18 03:38 03/07/18 03:38 03/07/18 03:38 03/07/18 03:38 General appearance: Present: cooperative. Absent: answers questions appropriately (Responds to yes or no questions from aphasia ) Exam: General appearance: Present: cooperative. Absent: answers questions appropriately (Responds to yes or no questions from aphasia ) Exam: - Respiratory Respiratory exam: Present: decreased breath sounds (left sided) - Cardiovascular Cardiovascular exam: Present: irregular rhythm - Extremities Exam Extremities exam: Present: normal inspection. Absent: cyanotic, joint swelling , pedal edema Internal Medicine: Result - Labs CBC & Chem 7: 03/06/18 05:33 03/06/18 05:33 Labs: Urine 03/03/18 Range/Units 16:50 Urine Color Yellow (Yellow) Urine Clarity Clear (Clear) Urine pH 6.0 (5.0-8.0) pH Units Ur Specific [place] > 1.030 H (1.010-1.025) Urine Protein Trace (Neg-Trace) mg/dL Urine Glucose (UA) Normal (Normal) mg/dL - ABG Interpretation ABG results: PT/INR, D-dimer PT 14.1 Seconds (9.4-12.1) H 03/07/18 04:49 - Impressions Impressions Chest X-Ray 03/06/18 00:01 IMPRESSION: 1. Left pleural effusion with associated atelectasis which appears to be less as compared to the prior exam. 2. Cardiomegaly without overt failure. D/ / Tayo Gutierrez MD / Tayo Gutierrez MD Interpreting Provider: Tayo Gutierrez MD - VTE Reasons for not Prescribing Prophylaxis: Medical contraindication (Plan for surgery today) Documentation of Mechanical Device: Intermittent pneumatic compression device Consult Discharge Plan - Plan Referrals: Praneeth Mendieta MD [Non-Partnered Physician] -
[2018-03-07] MEDS: amLODIPine 5 MG TABLET PO SCH (08:28)
[2018-03-07] MEDS: Furosemide 40 MG TABLET PO SCH (08:28)
[2018-03-07] MEDS: *HR* Digoxin 0.125 MG TABLET PO SCH (08:28)
--- NOTE | 2018-03-07 11:50 | Discharge Summary ---
- NOTES TO OUTPATIENT PROVIDER Notes to Outpatient Provider: - Pathology report (colon lymph node) still pending at time of discharge. 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 - INR. - Re evaluate if to resume Cozaar. Orders not resulted at time of discharge: Pending orders 02/23/18 20:19 Surgical Pathology [PTH] Routine 03/03/18 08:32 Culture,Blood [BC] Routine 03/03/18 11:55 Culture,Blood,Additional [BC] Routine 03/05/18 13:47 Procalcitonin Routine 03/08/18 04:00 PT/INR [Prothrombin Time INR] [COAG] AM 0400 Date of Encounter: 03/07/18 Time of Encounter: 11:47 - Discharge Diagnosis (1) Large bowel obstruction Priority: Primary Status: Resolved (2) Leukocytosis Priority: Secondary Status: Acute Qualifiers: Leukocytosis type: unspecified Qualified Code(s): D72.829 - Elevated white blood cell count, unspecified (3) Pleural effusion Priority: Secondary Status: Acute (4) Pulmonary edema Priority: Secondary Status: Resolved Qualifiers: Chronicity: acute Qualified Code(s): J81.0 - Acute pulmonary edema (5) Atrial fibrillation Priority: Secondary Status: Chronic Qualifiers: Atrial fibrillation type: chronic Qualified Code(s): I48.2 - Chronic atrial fibrillation (6) Hypertension Priority: Secondary Status: Chronic Qualifiers: Hypertension type: essential hypertension Qualified Code(s): I10 - Essential (primary) hypertension (7) Colonic mass Priority: Secondary Status: Acute (8) Hypokalemia Priority: Secondary Status: Resolved (9) Hypophosphatemia Priority: Secondary Status: Resolved (10) Ileus following gastrointestinal surgery Priority: Secondary Status: Acute (11) Aphasia as late effect of stroke Priority: Secondary Status: Chronic (12) DVT prophylaxis Priority: Secondary Status: Acute Hospital course: Ms. Galeana is a 87 year old female present to ER for abdominal pain and distention. Past medical history is significant for A. fib, history of CVA with aphasia, history of mitral vital replacement with bio valve, hypertension. Patient is aphasia and history was obtained from previous medical records and ER documentation. Patient has increased distention of the belly 2 days prior to admission and was referred from PCP to the emergency room. In the emergency room, CT abdomen shows colon mass with obstruction. Surgical consult was called and recommend admission and antibiotic treatment as patient has leukocytosis. Mass was suspicious for colon cancer. NG tube was placed and Surgery was consulted. Her INR was elevated at 5.1 on admission. INR was reversed for surgery. 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 She required a total of 10 units of FFP during her stay Mass biopsy of lymph node was taken and pending at time of discharge. She did have pulmonary edema which improved with diuresis. She had moderate pleural effusion seen on CT which Radiologist and Surgeon had discussion that this should resolve with aggressive pulmonary toileting. She started to increase activity and also used I.S. regularly. She had no acute respiratory failure. She had persistent elevated leukocytosis of unknown etiology. She had blood cultures drawn, emperic antibiotic therapy done, and central line removed and cultured. These came back negative. Infectious Disease was consulted and after workup, inculding CT abdomen/pelvis, CXR, seemed as no obvious source of infection. She was monitored off antibiotics and showed leukocytosis improved and she remained afebrile. This is likely malignancy causing leukocytosis. A procalcitonin was elevated but this was likely from recent surgery. Patient's bowel function improved. She was able to increase activity. Patient was stable and discharged to SNF in stable condition. - Time Spent with Patient Total time spent providing and/or coordinating discharge services: Greater than 30 minutes - Discharge Medications Home Medications: Alendronate Sodium 70 mg PO QWEEK 07/31/15 [History] Amlodipine [Norvasc] 10 mg PO DAILY 07/31/15 [History] Citalopram Hydrobromide [Celexa] 10 mg PO DAILY #0 07/31/15 [History] Digoxin [Lanoxin] 0.125 mg PO DAILY 07/31/15 [History] Losartan [Cozaar] 50 mg PO DAILY 07/31/15 [History] Multivitamin [Multi-Day Vitamins] 1 tab PO DAILY 07/31/15 [History] Simvastatin [Zocor] 40 mg PO HS 07/31/15 [History] Warfarin [Coumadin] 2 mg PO 1800 #60 tablet 08/05/15 [Rx] Aspirin 81 mg PO DAILY 02/19/18 [History] Cholecalciferol (D-3) [Vitamin D] 5,000 unit PO DAILY 02/19/18 [History] Donepezil [Aricept] 5 mg PO HS 02/19/18 [History] Metoprolol XL (24 HR) Succ [Toprol Xl] 150 mg PO DAILY 02/19/18 [History] Allergies/Adverse Reactions: 3 Allergy/AdvReac Type Severity Reaction Status Date / Time No Known Allergies Allergy Verified 02/20/18 11:01 Date of admission: 02/20/18 01:18 Primary care physician: Juan Fernandez MD Consults: 02/22/18 10:12 Consult to Scouring Train Operator Chief [CONS] Routine Reason for SW Consult: discharge needs. 02/27/18 08:38 Consult to Occupational Therapy [CONS] Routine Comment: Evaluate, develop and implement POC Reason for Consult: weakness Does patient have active BEDREST order?: No Is patient medically & hemodynamically stable?: Yes Patient assessed for mobility or mobilized this visit?: No Consult to Physical Therapy [CONS] Routine Comment: Evaluate, develop and implement POC Reason for Consult: weakness Does patient have active BEDREST order?: No Is patient medically & hemodynamically stable?: Yes Patient assessed for mobility or mobilized this visit?: No 03/03/18 08:05 Consult to Infectious Diseases [CONS] Routine Consulting Provider: Infectious Disease Jessi Reason for Consult: Leukocytosis, persistent Call Completed: Yes 03/05/18 13:08 Consult to Invasive Line Access Team [CONS] Routine Reason for Consult: poor vascular access, vancomycin IV use Line Type: EPIV Discharging clinician: Shirley Cameron - Constitutional Vitals: Temp Pulse Resp BP Pulse Ox 97.8 F 62 16 131/80 98 03/07/18 07:43 03/07/18 07:43 03/07/18 07:43 03/07/18 07:43 03/07/18 07:43 General appearance: Present: cooperative. Absent: answers questions appropriately (Responds to yes or no questions from aphasia ) Exam: General appearance: Present: cooperative. Absent: answers questions appropriately (Responds to yes or no questions from aphasia ) Exam: - Respiratory Respiratory exam: Present: decreased breath sounds (left sided) - Cardiovascular Cardiovascular exam: Present: irregular rhythm - Extremities Exam Extremities exam: Present: normal inspection. Absent: cyanotic, joint swelling , pedal edema - Patient Status Disposition: Transfer SNF Condition: Good Functional capacity at discharge: uses cane/walker Overall status at discharge: patient is progressing back to baseline - Discharge Instructions Follow Up With: Praneeth Mendieta MD [Non-Partnered Physician] - - Diet and Activity Activity: as per physical therapy Diet: advance to your usual diet - VTE Reasons for not Prescribing Prophylaxis: Medical contraindication (Plan for surgery today) Documentation of Mechanical Device: Intermittent pneumatic compression device
[2018-03-07 12:07] VITALS: BP 125/74
--- NOTE | 2018-03-07 12:14 | Physician Discharge Referral ---
ExtendedCare Referral Info Transfer To: [facility] Institutional Level of Care: Skilled - Diagnosis (1) Large bowel obstruction Priority: Primary Status: Resolved (2) Leukocytosis Priority: Secondary Status: Acute (3) Pleural effusion Priority: Secondary Status: Acute (4) Pulmonary edema Priority: Secondary Status: Resolved (5) Atrial fibrillation Priority: Secondary Status: Chronic (6) Hypertension Priority: Secondary Status: Chronic (7) Colonic mass Priority: Secondary Status: Acute (8) Hypokalemia Priority: Secondary Status: Resolved (9) Hypophosphatemia Priority: Secondary Status: Resolved (10) Ileus following gastrointestinal surgery Priority: Secondary Status: Acute (11) Aphasia as late effect of stroke Priority: Secondary Status: Chronic (12) DVT prophylaxis Priority: Secondary Status: Acute - Transfer Medications Home Medications: Alendronate Sodium 70 mg PO QWEEK 07/31/15 [History] Amlodipine [Norvasc] 10 mg PO DAILY 07/31/15 [History] Citalopram Hydrobromide [Celexa] 10 mg PO DAILY #0 07/31/15 [History] Digoxin [Lanoxin] 0.125 mg PO DAILY 07/31/15 [History] Losartan [Cozaar] 50 mg PO DAILY 07/31/15 [History] Multivitamin [Multi-Day Vitamins] 1 tab PO DAILY 07/31/15 [History] Simvastatin [Zocor] 40 mg PO HS 07/31/15 [History] Warfarin [Coumadin] 2 mg PO 1800 #60 tablet 08/05/15 [Rx] Aspirin 81 mg PO DAILY 02/19/18 [History] Cholecalciferol (D-3) [Vitamin D] 5,000 unit PO DAILY 02/19/18 [History] Donepezil [Aricept] 5 mg PO HS 02/19/18 [History] Metoprolol XL (24 HR) Succ [Toprol Xl] 150 mg PO DAILY 02/19/18 [History] Allergies/Adverse Reactions: 3 Allergy/AdvReac Type Severity Reaction Status Date / Time No Known Allergies Allergy Verified 02/20/18 11:01 - Respiratory Orders Smoking Cessation: Smoking cessation has been advised. For more information, call the [employer] Tobacco Quit Line at 4-574-RBUB-NOW. - Advance Directives Code Status: DNR-Arrest/Don't Intubate (s) - Mobility Orders Other (As per physical therapy recommended) - Rehabiliation Orders Rehab Orders: Evaluation for Physical Therapy, Evaluation for Occupational Therapy, Evaluation for Speech Therapy - Treatments Skin tear care topically daily PRN per policy, May check for fecal impaction rectally daily PRN - Diet Orders Regular, Cardiac CERTIFICATION: I certify that the transfer of the above named patient to an Extended Care Facility is necessary for the continuing treatment of the diagnosis listed. The above information is true and accurate reflection of patient's current condition. Confidential - Redisclosure prohibited without a patient's written consent.
[2018-03-07] MEDS ORDERED: *HR* Warfarin 3 MG TABLET PO ONE (18:00)
== END 2018-03-07 13:47 | DRG 329 ==
LOC: EMEROO 17:49 → 2ANU 17:49 → SUATTDRO 02-20 01:18 → 2ANU 02-20 02:26 → ICNU 02-23 18:35 → 3ANU 02-24 14:47 → 2ANU 03-06 16:28 → 3ANU 03-06 16:38
PROVIDERS: ADMIT Student in an Organized Health Care Education/Training Program; ATTEND Student in an Organized Health Care Education/Training Program

== ENCOUNTER 2018-03-28 17:23 | Inpatient (IN) ==
--- NOTE | 2018-03-28 17:29 | Emergency Department Note ---
Disposition Clinical Impression: Warfarin-induced coagulopathy Pneumonia Qualifiers: Pneumonia type: due to unspecified organism Laterality: left Lung location: lower lobe of lung Qualified Code(s): J18.1 - Lobar pneumonia, unspecified organism GI bleed Qualifiers: GI bleed type/associated pathology: melena Qualified Code(s): K92.1 - Melena Hydronephrosis Qualifiers: Hydronephrosis type: unspecified Qualified Code(s): N13.30 - Unspecified hydronephrosis Disposition: Admitted As Inpatient Condition: Fair General Adult HPI - General Chief complaint: ED Recheck/Abnormal Lab/Rx Stated complaint: more bruising than normal Nursing Notes Reviewed: Yes Vital Signs Reviewed: Yes - History of Present Illness HPI Narrative: 87-year-old female presents emergency department with concern for elevated INR per family. Family started noticed more bruising on scan and started noticing patient was having black stools. Patient is currently on Coumadin for atrial fibrillation. Patient had previous stroke where she responds sometimes but not all times. Patient is complaining of abdominal pain, but no shortness of breath , no chest pain, no chest pressure, no chest tightness. No fevers. Acting baseline mental status per family. - Related Data Home Medications Medication Instructions Recorded Confirmed Alendronate Sodium 70 mg PO QWEEK 07/31/15 02/19/18 Amlodipine [Norvasc] 10 mg PO DAILY 07/31/15 02/19/18 Citalopram Hydrobromide [Celexa] 10 mg PO DAILY #0 07/31/15 02/19/18 Digoxin [Lanoxin] 0.125 mg PO DAILY 07/31/15 02/19/18 Losartan [Cozaar] 50 mg PO DAILY 07/31/15 02/19/18 Multivitamin [Multi-Day Vitamins] 1 tab PO DAILY 07/31/15 02/19/18 Simvastatin [Zocor] 40 mg PO HS 07/31/15 02/19/18 Aspirin 81 mg PO DAILY 02/19/18 02/19/18 Cholecalciferol (D-3) [Vitamin D] 5,000 unit PO DAILY 02/19/18 02/19/18 Donepezil [Aricept] 5 mg PO HS 02/19/18 02/19/18 Metoprolol XL (24 HR) Succ [Toprol 150 mg PO DAILY 02/19/18 02/19/18 Xl] Previous Rx's Medication Instructions Recorded Warfarin [Coumadin] 2 mg PO 1800 #60 tablet 08/05/15 Allergies Allergy/AdvReac Type Severity Reaction Status Date / Time No Known Allergies Allergy Verified 02/20/18 11:01 All systems ED: reviewed and negative except as stated. Review of Systems: As Per HPI Limitations: ROS unobtainable due to patients medical condition (Patient not responsive to many questions) Constitutional: Denies: fever Gastrointestinal: Reports: abdominal pain, vomiting Hematological/Lymphatic: Reports: easy bleeding, easy bruising Past Medical History - Past Medical History Medical history: Reports: coronary artery disease, CVA, myocardial infarction, TIA, other Surgical history: Reports: heart valve replacement, other Psychiatric history: Reports: no psych history CIRCUIT BOARD INSPECTOR history: Reports: no CIRCUIT BOARD INSPECTOR history - Social History Smoking Status: Never smoker Smokeless Tobacco Status: No Alcohol use: Reports: none Drug use: Reports: none Physical Exam - General General appearance: other (Patient drooling.) - Head Head exam: atraumatic - Eye Eye exam: Present: EOMI. Absent: scleral icterus - ENT ENT exam: normal oropharynx, mucous membranes moist - Neck Neck exam: Present: trachea midline. Absent: tenderness, meningismus - Chest Chest inspection: Present: normal inspection, symmetric chest wall rise - Respiratory Respiratory exam: Present: normal lung sounds bilaterally, other (Requiring oxygen via nasal cannula). Absent: accessory muscle use - Cardiovascular Cardiovascular exam: Present: regular rate Course Vital Signs Temperature 98.5 F 03/28/18 17:26 Pulse Rate 40 03/28/18 17:26 Respiratory Rate 20 03/28/18 17:26 Blood Pressure 153/68 03/28/18 17:26 O2 Sat by Pulse Oximetry 93 03/28/18 17:26 Temperature 97.7 F 03/28/18 23:25 Pulse Rate 71 03/28/18 23:25 Respiratory Rate 16 03/28/18 23:25 Blood Pressure 128/71 03/28/18 23:25 O2 Sat by Pulse Oximetry 95 03/28/18 23:25 Oxygen Delivery Oxygen Delivery Nasal Cannula Medical Decision Making - MDM Narrative Medical decision making narrative: 87-year-old female presented to emergency department with concern for elevated INR. Patient has been staying at nursing facility and there is concern that patient has been giving too much Coumadin. Is also reports some melenic stools. Patient is also having right lower quadrant abdominal pain. Initial INR was 12.1. Patient had positive Hemoccult with melenic stool on physical exam. Patient was given vitamin K here in the emergency department as well as [facility]. Patient was at her baseline mental status according to family. CT scan of the head without contrast was obtained and this was within normal limits. CT scan of abdomen and pelvis revealed right-sided hydronephrosis. She did not have a urinalysis at this time, but patient is currently getting antibiotics that would cover for urinary tract infection. Chest x-ray revealed possible left-sided pneumonia. Patient requiring oxygen via nasal cannula at 2 L. Patient has not needed oxygen in the past. Patient's hemoglobin here is 10.3. Previous was 11.6 two weeks ago. Patient given 1 L of fluids here in the emergency department. She was also given vancomycin, cefepime, azithromycin for HCAP. Type and screen was obtained. Patient was given bolus of her Protonix at 80 milligrams. Then started on Protonix drip. I consulted gastroenterology and Dr. Sanchez agreed to follow the patient hospital. Patient's was at bedside and agree with the plan. Patient hemodynamically stable and not in acute distress at time of admission to the hospitalist. Head CT 03/28/18 18:16 IMPRESSION: No acute intracranial abnormality. D/ / David Pfeiffer MD / Daivd Pfeiffer MD Interpreting Provider: David Pfeiffer MD Abdomen/Pelvis CT 03/28/18 18:17 IMPRESSION: Postsurgical changes again noted from bowel resection. Improvement in fluid collections and edema throughout the abdomen and pelvis. Previously visualized dilated loops of bowel have resolved. Left pleural effusion and consolidation again noted, similar to previous exam. Mild right hydronephrosis, new. No obstructing stone visualized. Mild left urothelial thickening. Correlate with urinalysis for signs of infection. AV and within the left femoral head. D/ / Mercedez Khan MD / Mercedez Khan MD Interpreting Provider: Mercedez Khan MD Chest X-Ray 03/28/18 20:55 IMPRESSION: 1. Cardiomegaly with increased pulmonary vascular congestion since the previous study. 2. There is a moderate left pleural effusion, increased in size. There are also increasing left lung infiltrates, which could be related to atelectasis versus pneumonia. D/ / 03/28/2018 21:31:00 Albert Stephens MD / keon Interpreting Provider: Albert Stephens MD - Lab Data Result diagrams: 03/28/18 23:30 03/28/18 17:52 Lab Results 03/28/18 03/28/18 03/28/18 Range/Units 17:52 17:52 17:52 WBC 14.2 H (4.3-11.1) K/mcL RBC 3.40 L (3.82-4.97) M/mcL Hgb 10.3 L (11.5-15.4) g/dL Hct 32.1 L (35.3-44.9) % MCV 94.4 (83.0-100.0) fL MCH 30.3 (28.0-33.3) pg MCHC 32.1 (31.6-35.5) g/dL RDW 15.4 H (11.5-14.5) % Plt Count 284 (140-400) K/mcL MPV 10.1 (9.4-12.4) fL Immature Gran % 0.6 (0-4) % Seg Neutrophils % 65.3 % Lymphocytes % 21.9 % Monocytes % 11.3 % Eosinophils % 0.6 % Basophils % 0.3 % Neutrophils # 9.3 H (1.6-8.9) K/mcL Lymphocytes # 3.1 (0.6-4.6) K/mcL Monocytes # 1.6 H (0.0-1.3) K/mcL Eosinophils # 0.1 (0.0-0.6) K/mcL Basophils # 0.0 (0.0-0.2) K/mcL PT 136.9 H* (9.4-12.1) Seconds INR 12.1 H* Sodium 136 (136-145) mEq/L Potassium 3.8 (3.5-5.1) mEq/L Chloride 103 (98-107) mEq/L Carbon Dioxide 28 (23-29) mEq/L BUN 25 H (8-23) mg/dL Creatinine 0.61 (0.60-1.20) mg/dL Est GFR ( Amer) > 60 (> 60) Est GFR (Non-Af Amer) > 60 (> 60) BUN/Creatinine Ratio 41 H (6-26) Glucose 138 H (70-105) mg/dL Calculated Osmolality 289 (280-300) Calcium 9.6 (8.6-10.3) mg/dL Total Bilirubin 0.7 (0.3-1.0) mg/dL Direct Bilirubin 0.1 (0.0-0.2) mg/dL Indirect Bilirubin 0.6 (0.0-1.2) mg/dL AST 13 (13-39) Units/L ALT 10 (7-52) Units/L Alkaline Phosphatase 80 (34-104) Units/L Serum Total Protein 6.5 (6.4-8.9) g/dL Albumin 3.6 (3.5-5.7) g/dL Globulin 2.9 (2.4-3.5) g/dL Albumin/Globulin Ratio 1.2 (1.1-2.2) Lipase 40 (11-82) Units/L Blood Type Antibody Screen 03/28/18 Range/Units 19:30 WBC (4.3-11.1) K/mcL RBC (3.82-4.97) M/mcL Hgb (11.5-15.4) g/dL Hct (35.3-44.9) % MCV (83.0-100.0) fL MCH (28.0-33.3) pg MCHC (31.6-35.5) g/dL RDW (11.5-14.5) % Plt Count (140-400) K/mcL MPV (9.4-12.4) fL Immature Gran % (0-4) % Seg Neutrophils % % Lymphocytes % % Monocytes % % Eosinophils % % Basophils % % Neutrophils # (1.6-8.9) K/mcL Lymphocytes # (0.6-4.6) K/mcL Monocytes # (0.0-1.3) K/mcL Eosinophils # (0.0-0.6) K/mcL Basophils # (0.0-0.2) K/mcL PT (9.4-12.1) Seconds INR Sodium (136-145) mEq/L Potassium (3.5-5.1) mEq/L Chloride (98-107) mEq/L Carbon Dioxide (23-29) mEq/L BUN (8-23) mg/dL Creatinine (0.60-1.20) mg/dL Est GFR ( Amer) (> 60) Est GFR (Non-Af Amer) (> 60) BUN/Creatinine Ratio (6-26) Glucose (70-105) mg/dL Calculated Osmolality (280-300) Calcium (8.6-10.3) mg/dL Total Bilirubin (0.3-1.0) mg/dL Direct Bilirubin (0.0-0.2) mg/dL Indirect Bilirubin (0.0-1.2) mg/dL AST (13-39) Units/L ALT (7-52) Units/L Alkaline Phosphatase (34-104) Units/L Serum Total Protein (6.4-8.9) g/dL Albumin (3.5-5.7) g/dL Globulin (2.4-3.5) g/dL Albumin/Globulin Ratio (1.1-2.2) Lipase (11-82) Units/L Blood Type O NEGATIVE Antibody Screen NEGATIVE - Radiology Data Radiology results reviewed: Yes I reviewed the patient's radiology results. - EKG Data EKG #1 EKG attestation: Yes I reviewed and interpreted this EKG. EKG results narrative: 18:35 Chief ventricular rate 71 bpm, AR interval, no P waves, QRS duration 84 months and is, QTC 420 ms, QTC 443 ms, atrial fibrillation with a rate of 71 bpm. There are PVCs. No evidence of any ischemic ST changes noted on this electrocardiogram. Electrocardiogram compared to previous one obtained on 10/10.
[2018-03-28 18:06] LABS: Basophils % 0.3 %; Eosinophils # 0.1 K/mcL (0.0-0.6); Eosinophils % 0.6 %; Hematocrit 32.1 % (35.3-44.9); Hemoglobin 10.3 g/dL (11.5-15.4); Immature Granulocytes % 0.6 % (0-4); Lymphocytes # 3.1 K/mcL (0.6-4.6); Lymphocytes % 21.9 %; Mean Corpuscular HGB Conc 32.1 g/dL (31.6-35.5); Mean Corpuscular Hemoglobin 30.3 pg (28.0-33.3); Mean Corpuscular Volume 94.4 fL (83.0-100.0); Mean Platelet Volume 10.1 fL (9.4-12.4); Monocytes # 1.6 K/mcL (0.0-1.3); Monocytes % 11.3 %; Neutrophils # 9.3 K/mcL (1.6-8.9); Platelet Count 284 K/mcL (140-400); Red Cell Distribution Width 15.4 % (11.5-14.5); Segmented Neutrophils % 65.3 %
[2018-03-28] MEDS ORDERED: Isovue-370 500 ML INFUS..BTL IV ONE (18:16)
[2018-03-28 18:19] LABS: Prothrombin Time 136.9 Seconds (9.4-12.1)
[2018-03-28] MEDS ORDERED: Ondansetron 4 MG/2 ML VIAL IVP ONE (18:19)
[2018-03-28 18:20] LABS: INR 12.1
[2018-03-28 18:26] LABS: BUN/Creatinine Ratio 41 (6-26); Blood Urea Nitrogen 25 mg/dL (8-23); Calcium 9.6 mg/dL (8.6-10.3); Carbon Dioxide 28 mEq/L (23-29); Chloride 103 mEq/L (98-107); Glucose 138 mg/dL (70-105); Osmolality,Calculated 289 (280-300); Potassium 3.8 mEq/L (3.5-5.1); Sodium 136 mEq/L (136-145); eGFR For African Americans > 60 (> 60); eGFR For Non-African Americans > 60 (> 60)
[2018-03-28] MEDS ORDERED: Pantoprazole 80 MG in 0.9 % Sodium Chloride 50 ML IVPB ONE (18:37)
[2018-03-28] MEDS ORDERED: 0.9 % Sodium Chloride 1,000 ML IVC ONE (18:39)
[2018-03-28] MEDS ORDERED: WATER FOR INJ IVPB ONE (19:00)
[2018-03-28] MEDS ORDERED: [UNRECOGNIZED DRUG - OTHER] IVPB ONE (19:00)
[2018-03-28] MEDS ORDERED: HUM PROTHROMBIN CPLX IVPB ONE (19:00)
[2018-03-28 19:46] LABS: Alanine Aminotransferase 10 Units/L (7-52); Albumin 3.6 g/dL (3.5-5.7); Albumin/Globulin Ratio 1.2 (1.1-2.2); Alkaline Phosphatase 80 Units/L (34-104); Aspartate Amino Transferase 13 Units/L (13-39); Bilirubin,Direct 0.1 mg/dL (0.0-0.2); Bilirubin,Indirect 0.6 mg/dL (0.0-1.2); Bilirubin,Total 0.7 mg/dL (0.3-1.0); Globulin 2.9 g/dL (2.4-3.5); Lipase 40 Units/L (11-82); Total Protein 6.5 g/dL (6.4-8.9)
[2018-03-28] MEDS ORDERED: Pantoprazole 40 MG in 0.9 % Sodium Chloride Mini Bag 100 ML IVC SCH (20:15)
--- NOTE | 2018-03-28 21:42 | Emergency Department Note ---
Disposition Clinical Impression: Warfarin-induced coagulopathy Pneumonia Qualifiers: Pneumonia type: due to unspecified organism Laterality: left Lung location: lower lobe of lung Qualified Code(s): J18.1 - Lobar pneumonia, unspecified organism GI bleed Qualifiers: GI bleed type/associated pathology: melena Qualified Code(s): K92.1 - Melena Disposition: Admitted As Inpatient Condition: Fair Referrals: Juan Fernandez MD [Primary Care Provider] - Time of Disposition: 21:42 General Adult HPI - General Chief complaint: ED Recheck/Abnormal Lab/Rx Stated complaint: more bruising than normal Time Seen by Provider: 03/28/18 17:42 Source: family, EMS Mode of arrival: ambulatory Limitations: altered mental status, other Nursing Notes Reviewed: Yes Vital Signs Reviewed: Yes - History of Present Illness Pain Scale: 0 - Related Data Home Medications Medication Instructions Recorded Confirmed Alendronate Sodium 70 mg PO QWEEK 07/31/15 02/19/18 Amlodipine [Norvasc] 10 mg PO DAILY 07/31/15 02/19/18 Citalopram Hydrobromide [Celexa] 10 mg PO DAILY #0 07/31/15 02/19/18 Digoxin [Lanoxin] 0.125 mg PO DAILY 07/31/15 02/19/18 Losartan [Cozaar] 50 mg PO DAILY 07/31/15 02/19/18 Multivitamin [Multi-Day Vitamins] 1 tab PO DAILY 07/31/15 02/19/18 Simvastatin [Zocor] 40 mg PO HS 07/31/15 02/19/18 Aspirin 81 mg PO DAILY 02/19/18 02/19/18 Cholecalciferol (D-3) [Vitamin D] 5,000 unit PO DAILY 02/19/18 02/19/18 Donepezil [Aricept] 5 mg PO HS 02/19/18 02/19/18 Metoprolol XL (24 HR) Succ [Toprol 150 mg PO DAILY 02/19/18 02/19/18 Xl] Previous Rx's Medication Instructions Recorded Warfarin [Coumadin] 2 mg PO 1800 #60 tablet 08/05/15 Allergies Allergy/AdvReac Type Severity Reaction Status Date / Time No Known Allergies Allergy Verified 02/20/18 11:01 Past Medical History - Past Medical History Medical history: Reports: coronary artery disease, CVA, myocardial infarction, TIA, other Surgical history: Reports: heart valve replacement, other Psychiatric history: Reports: no psych history ROUTE SALESPERSON history: Reports: no ROUTE SALESPERSON history - Social History Smoking Status: Never smoker Smokeless Tobacco Status: No Alcohol use: Reports: none Drug use: Reports: none Physical Exam - General Limitations: altered mental status, other General appearance: alert, in no apparent distress, obtunded Course Vital Signs Temperature 98.5 F 03/28/18 17:26 Pulse Rate 40 03/28/18 17:26 Respiratory Rate 20 03/28/18 17:26 Blood Pressure 153/68 03/28/18 17:26 O2 Sat by Pulse Oximetry 93 03/28/18 17:26 Temperature 98.5 F 03/28/18 17:26 Pulse Rate 65 03/28/18 22:00 Respiratory Rate 20 03/28/18 22:00 Blood Pressure 127/52 03/28/18 22:00 O2 Sat by Pulse Oximetry 97 03/28/18 22:00 Oxygen Delivery Oxygen Delivery Nasal Cannula Medical Decision Making - Lab Data Result diagrams: 03/28/18 17:52 03/28/18 17:52 Lab Results 03/28/18 03/28/18 03/28/18 Range/Units 17:52 17:52 17:52 WBC 14.2 H (4.3-11.1) K/mcL RBC 3.40 L (3.82-4.97) M/mcL Hgb 10.3 L (11.5-15.4) g/dL Hct 32.1 L (35.3-44.9) % MCV 94.4 (83.0-100.0) fL MCH 30.3 (28.0-33.3) pg MCHC 32.1 (31.6-35.5) g/dL RDW 15.4 H (11.5-14.5) % Plt Count 284 (140-400) K/mcL MPV 10.1 (9.4-12.4) fL Immature Gran % 0.6 (0-4) % Seg Neutrophils % 65.3 % Lymphocytes % 21.9 % Monocytes % 11.3 % Eosinophils % 0.6 % Basophils % 0.3 % Neutrophils # 9.3 H (1.6-8.9) K/mcL Lymphocytes # 3.1 (0.6-4.6) K/mcL Monocytes # 1.6 H (0.0-1.3) K/mcL Eosinophils # 0.1 (0.0-0.6) K/mcL Basophils # 0.0 (0.0-0.2) K/mcL PT 136.9 H* (9.4-12.1) Seconds INR 12.1 H* Sodium 136 (136-145) mEq/L Potassium 3.8 (3.5-5.1) mEq/L Chloride 103 (98-107) mEq/L Carbon Dioxide 28 (23-29) mEq/L BUN 25 H (8-23) mg/dL Creatinine 0.61 (0.60-1.20) mg/dL Est GFR ( Amer) > 60 (> 60) Est GFR (Non-Af Amer) > 60 (> 60) BUN/Creatinine Ratio 41 H (6-26) Glucose 138 H (70-105) mg/dL Calculated Osmolality 289 (280-300) Calcium 9.6 (8.6-10.3) mg/dL Total Bilirubin 0.7 (0.3-1.0) mg/dL Direct Bilirubin 0.1 (0.0-0.2) mg/dL Indirect Bilirubin 0.6 (0.0-1.2) mg/dL AST 13 (13-39) Units/L ALT 10 (7-52) Units/L Alkaline Phosphatase 80 (34-104) Units/L Serum Total Protein 6.5 (6.4-8.9) g/dL Albumin 3.6 (3.5-5.7) g/dL Globulin 2.9 (2.4-3.5) g/dL Albumin/Globulin Ratio 1.2 (1.1-2.2) Lipase 40 (11-82) Units/L Blood Type Antibody Screen 03/28/18 Range/Units 19:30 WBC (4.3-11.1) K/mcL RBC (3.82-4.97) M/mcL Hgb (11.5-15.4) g/dL Hct (35.3-44.9) % MCV (83.0-100.0) fL MCH (28.0-33.3) pg MCHC (31.6-35.5) g/dL RDW (11.5-14.5) % Plt Count (140-400) K/mcL MPV (9.4-12.4) fL Immature Gran % (0-4) % Seg Neutrophils % % Lymphocytes % % Monocytes % % Eosinophils % % Basophils % % Neutrophils # (1.6-8.9) K/mcL Lymphocytes # (0.6-4.6) K/mcL Monocytes # (0.0-1.3) K/mcL Eosinophils # (0.0-0.6) K/mcL Basophils # (0.0-0.2) K/mcL PT (9.4-12.1) Seconds INR Sodium (136-145) mEq/L Potassium (3.5-5.1) mEq/L Chloride (98-107) mEq/L Carbon Dioxide (23-29) mEq/L BUN (8-23) mg/dL Creatinine (0.60-1.20) mg/dL Est GFR ( Amer) (> 60) Est GFR (Non-Af Amer) (> 60) BUN/Creatinine Ratio (6-26) Glucose (70-105) mg/dL Calculated Osmolality (280-300) Calcium (8.6-10.3) mg/dL Total Bilirubin (0.3-1.0) mg/dL Direct Bilirubin (0.0-0.2) mg/dL Indirect Bilirubin (0.0-1.2) mg/dL AST (13-39) Units/L ALT (7-52) Units/L Alkaline Phosphatase (34-104) Units/L Serum Total Protein (6.4-8.9) g/dL Albumin (3.5-5.7) g/dL Globulin (2.4-3.5) g/dL Albumin/Globulin Ratio (1.1-2.2) Lipase (11-82) Units/L Blood Type O NEGATIVE Antibody Screen NEGATIVE Attestation Statement - Attestation Attestation: I, Jono Burrell, examined this patient and my medical decision-making was reviewed with the PHP CONSULTANT/PA/Advanced Practice Nurse/Resident Physician. I agree with the documented findings, disposition and treatment plan as described except to the extent set forth below. 87-year-old female presents emergency Department evaluation of INR. Patient is at the assisted living facility, son states patient had only taken 1 mg of Coumadin prior to admission to this facility however now she is taking 3-5 mg a day. They are asking for a recheck of her INR. states that she is at her mental baseline. They report her having darker stools than usual and having multiple bruises on her extremities. They deny recent falls or other trauma. INR returned significantly elevated at 12. Patient had a guaiac positive dark stool on rectal exam. Resident, Dr. Peralta, spoke with Dr. River who was on for endoscopy and GI bleed. Dr. River will follow in hospital. Patient given vitamin K and PCC in the emergency department. Chest x-ray shows possible left lower lobe pneumonia. Patient started on antibiotics for HCAP. She will be admitted to the hospitalist for further care and evaluation.
[2018-03-28] MEDS ORDERED: Azithromycin 500 MG in D5% in Water 250 ML IVPB ONE (21:48)
[2018-03-28] MEDS ORDERED: *HR* LORazepam 2 MG/ML VIAL IVP ONE (22:06)
[2018-03-28] MEDS ORDERED: Haloperidol Lactate 5 MG/ML VIAL IVP ONE (22:07)
[2018-03-28] MEDS ORDERED: Haloperidol Lactate 5 MG/ML VIAL ONE (22:09)
[2018-03-28] MEDS ORDERED: Cefepime HCl 2,000 MG in Water for inj. (sterile) 20 ML 20 ML IVPB ONE (22:15)
--- NOTE | 2018-03-28 22:23 | Internal Med History&Physical ---
Date of Encounter: 03/29/18 Time of Encounter: 22:07 Internal Medicine - H&P: HPI Chief complaint: elevated INR Admitted From: Home Plans for Post Hospital Care: Home History of present illness: Ms. 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 Patient is poor historian, hx gathered from records. No family by bedside. Patient was transferred to nursing facility after [place]. At the nursing facility, patient did not have dosing instructions for coumadin, so she was given "standard dosing between 3-5". Today patient's lab showed that she had an elevated INR and was then transferred to [place]. It was also reported that she had melenic stools. Past Med Surg Social Fam HX - Past Medical History Medical history: coronary artery disease, CVA, myocardial infarction, TIA, other Additional medical history: bowel obstruction Psychiatric history: no psych history - Past Surgical History Surgical History: heart valve replacement, other Additional surgical history: unable to recall complete surgical history - Social History Smoking Status: Never smoker Smokeless Tobacco Status: No Alcohol use: none Drug use: none Internal Medicine - H&P: Meds RX: Alendronate Sodium 70 mg PO QWEEK 07/31/15 [History] RX: Amlodipine [Norvasc] 10 mg PO DAILY 07/31/15 [History] RX: Citalopram Hydrobromide [Celexa] 10 mg PO DAILY #0 07/31/15 [History] RX: Digoxin [Lanoxin] 0.125 mg PO DAILY 07/31/15 [History] RX: Losartan [Cozaar] 50 mg PO DAILY 07/31/15 [History] RX: Multivitamin [Multi-Day Vitamins] 1 tab PO DAILY 07/31/15 [History] RX: Simvastatin [Zocor] 40 mg PO HS 07/31/15 [History] RX: Warfarin [Coumadin] 2 mg PO 1800 #60 tablet 08/05/15 [Rx] RX: Aspirin 81 mg PO DAILY 02/19/18 [History] RX: Cholecalciferol (D-3) [Vitamin D] 5,000 unit PO DAILY 02/19/18 [History] RX: Donepezil [Aricept] 5 mg PO HS 02/19/18 [History] RX: Metoprolol XL (24 HR) Succ [Toprol Xl] 150 mg PO DAILY 02/19/18 [History] 3 Allergy/AdvReac Type Severity Reaction Status Date / Time No Known Allergies Allergy Verified 02/20/18 11:01 ROS unobtainable: due to mental status All Systems PM: A 10-system review of systems was performed and is negative for pertinent findings except as documented above in the HPI. - Constitutional Vitals: Temp Pulse Resp BP Pulse Ox 98.5 F 89 20 97/76 98 03/28/18 17:26 03/28/18 21:30 03/28/18 21:30 03/28/18 21:30 03/28/18 21:30 General appearance: Present: disheveled, A&O X 3, no acute distress. Absent: answers questions appropriately Exam: Upon entering room, patient was mumbling and started stroking my stethoscope and arm. according to nurses this is baseline for patient. - Head Head exam: Present: atraumatic, normocephalic - Eye Eye exam: Present: PERRL, conjuntiva pink, sclera anicteric Pupils: Present: PERRL - Neck Neck exam general surgery: Present: supple, trachea midline. Absent: lymphadenopathy, thyromegaly - Respiratory Respiratory exam: Present: CTAB. Absent: accessory muscle use, rales, rhonchi, wheezes - Cardiovascular Cardiovascular exam: Present: RRR. Absent: diastolic murmur, gallop, rubs, systolic murmur - GI/Abdominal GI/Abdominal exam: Present: diminished bowel sounds, soft, no peritoneal signs. Absent: distended, firm, guarding, hepatomegaly, pulsatile mass, rebound, rigid, tenderness Additional comments: midline incision appears clean and dry - Extremities Exam Extremities exam: Present: warm, radial pulses palpable and symmetrical. Absent : calf tenderness, cyanotic, pedal edema Additional comments: contusion on lateral left foot - Neurological Exam Neurological exam: Absent: pronater drift, facial droop, speech deficit - Skin Skin exam: Present: dry, intact Internal Med - H&P Results - Labs CBC & Chem 7: 03/28/18 23:30 03/28/18 17:52 Labs: Short CBC 03/28/18 Range/Units 17:52 WBC 14.2 H (4.3-11.1) K/mcL Hgb 10.3 L (11.5-15.4) g/dL Hct 32.1 L (35.3-44.9) % Plt Count 284 (140-400) K/mcL Neutrophils # 9.3 H (1.6-8.9) K/mcL BMP 03/28/18 17:52 Sodium 136 Potassium 3.8 Chloride 103 Carbon Dioxide 28 BUN 25 H Creatinine 0.61 Glucose 138 H Calcium 9.6 Liver Function 03/28/18 Range/Units 17:52 Total Bilirubin 0.7 (0.3-1.0) mg/dL Direct Bilirubin 0.1 (0.0-0.2) mg/dL AST 13 (13-39) Units/L ALT 10 (7-52) Units/L Alkaline Phosphatase 80 (34-104) Units/L Albumin 3.6 (3.5-5.7) g/dL - Impressions ITS Impressions Head CT 03/28/18 18:16 IMPRESSION: No acute intracranial abnormality. D/ / David Pfeiffer MD / David Pfeiffer MD Interpreting Provider: David Pfeiffer MD Abdomen/Pelvis CT 03/28/18 18:17 IMPRESSION: Postsurgical changes again noted from bowel resection. Improvement in fluid collections and edema throughout the abdomen and pelvis. Previously visualized dilated loops of bowel have resolved. Left pleural effusion and consolidation again noted, similar to previous exam. Mild right hydronephrosis, new. No obstructing stone visualized. Mild left urothelial thickening. Correlate with urinalysis for signs of infection. AV and within the left femoral head. D/ / Mercedez Khan MD / Mercedez Khan MD Interpreting Provider: Mercedez Khan MD Chest X-Ray 03/28/18 20:55 IMPRESSION: 1. Cardiomegaly with increased pulmonary vascular congestion since the previous study. 2. There is a moderate left pleural effusion, increased in size. There are also increasing left lung infiltrates, which could be related to atelectasis versus pneumonia. D/ / 03/28/2018 21:31:00 Albert Stephens MD / keon Interpreting Provider: Albert Stephens MD - Assessment and plan (1) Warfarin-induced coagulopathy Current Visit: Yes Status: Acute Assessment and plan: INR on admission 12.1. In Ed patient was given Kcentra and vitamin K. Will recheck INR in the AM. (2) GI bleed Current Visit: Yes Status: Acute Assessment and plan: reported melenic stools and positive hemooccult. Patient's INR 12.1 on admission, was reversed in the ED but patient remains high risk for GI bleed. BUN is mildly elevated. ED consulted Dr. Sanchez for scope, expected scope tomorrow. - consult to Dr. Sanchez; scheduled scope for tomorrow - follow H/H - start iv protonix Qualifiers: GI bleed type/associated pathology: melena Qualified Code(s): K92.1 - Melena (3) Pneumonia Current Visit: Yes Status: Acute Assessment and plan: On admission WBC 14.2, and Left lung infiltrates seen on CXR. Patient was transferred from drug enforcement administration agent nursing facility and was recently hospitalized and treated for sepsis <90 days ago. Will treat as HAP. - start zosyn + vanc - cultures pending - closely monitor - vanc trough ordered Qualifiers: Pneumonia type: due to unspecified organism Laterality: left Lung location: lower lobe of lung Qualified Code(s): J18.1 - Lobar pneumonia, unspecified organism (4) Aphasia as late effect of stroke Current Visit: Yes Status: Chronic Assessment and plan: broca dysphasia from previous stroke. reported baseline, will discuss when family is bedside again. CT head was performed in ED, and no acute hemorrhage was identified. (5) Atrial fibrillation Current Visit: Yes Status: Chronic Assessment and plan: patient is on metoprolol and digoxin at home. Will continue these medications but hold anti-coagulation due elevated INR and risk of bleed. - continue metoprolol and digoxin; will closely montior as patient has known history of hypoK Qualifiers: Atrial fibrillation type: chronic Qualified Code(s): I48.2 - Chronic atrial fibrillation (6) History of mitral valve replacement with bioprosthetic valve Current Visit: Yes Status: Chronic Assessment and plan: stable. (7) Hypertension Current Visit: Yes Status: Chronic Assessment and plan: continue home rx. Qualifiers: Hypertension type: essential hypertension Qualified Code(s): I10 - Essential (primary) hypertension (8) DVT prophylaxis Current Visit: Yes Status: Acute Assessment and plan: EPCD - Time Spent With Patient Total time spent is greater than 50% in coordination of care (as documented) at patient's floor/unit and/or counseling patient:
[2018-03-28] MEDS ORDERED: Naloxone 0.4 MG/ML INJ IVP PRN (22:39)
--- NOTE | 2018-03-28 23:05 | Event Note ---
Date of Encounter: 03/29/18 Time of Encounter: 22:53 Patient was seen and examined. I agree with the H&P as written by the Resident Physician. Briefly, patient is 87 yo female with history of severe dementia who stays at an assisted living, afib on coumadin, recent right colectomy for neoplasm, bioprosthetic mitral valve, cva who is sent to the ED with concerns regarding a bleed (GI and ecchymosis). Melanotic stools seen in the ED. In the ED, INR was 12.1. Hgb 10.3 with previous hgb of 11.6 on 03/16. WBC count 14.2. FOBT +. Patient is hemodynamcially stable but was noted to be hypoxic in the high 80s- low 90s in the ED and was put on supplemental O2. Imaging studies showed infiltrate. Patient can not give much history due to severe dementia. CT abd/ pelvis with nothing acute. Patient was given PCC and vitamin K in the ED. Was also given IV fluids, vanco/ cefepime/azithro, IV protonix. A/Ox1, NAD RRR. S1, S2, no m/r/g Diminished breath sounds with crackles at the bases as well as coarse breath sounds Abd soft, NT, ND. Healing midline surgical scar LE with b/l simpson ecchymosis noted. 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 Urine strep/legionella Nebs O2 support NPO after midnight SCDs
[2018-03-28] MEDS ORDERED: NON-FORMULARY MEDICATION 1 EACH EACH (Alendronate Sodium [Alendronate Sodium] 70 MG) PO SCH (23:15)
[2018-03-29 00:26] LABS: Hematocrit 27.5 % (35.3-44.9)
[2018-03-29 00:35] LABS: INR 1.2; Prothrombin Time 12.5 Seconds (9.4-12.1)
[2018-03-29 00:36] LABS: Hemoglobin 8.6 g/dL (11.5-15.4)
[2018-03-29] MEDS: Piperacillin/Tazobactam 3.375 GM in 0.9 % Sodium Chloride Mini Bag 100 ML IVPB SCH ×3 (01:21→17:41)
[2018-03-29] MEDS: Pantoprazole 40 MG VIAL IVP SCH ×2 (05:20→17:44)
[2018-03-29 06:25] LABS: Basophils % 0.3 %; Eosinophils # 0.1 K/mcL (0.0-0.6); Eosinophils % 0.8 %; Hematocrit 30.3 % (35.3-44.9); Hemoglobin 10.1 g/dL (11.5-15.4); Immature Granulocytes % 1.6 % (0-4); Lymphocytes # 2.2 K/mcL (0.6-4.6); Lymphocytes % 15.8 %; Mean Corpuscular HGB Conc 33.3 g/dL (31.6-35.5); Mean Corpuscular Hemoglobin 31.8 pg (28.0-33.3); Mean Corpuscular Volume 95.3 fL (83.0-100.0); Mean Platelet Volume 10.4 fL (9.4-12.4); Monocytes # 1.6 K/mcL (0.0-1.3); Monocytes % 11.5 %; Neutrophils # 9.8 K/mcL (1.6-8.9); Nucleated Red Blood Cells 0.1 /100 WBC (0); Platelet Count 257 K/mcL (140-400); Red Blood Count 3.18 M/mcL (3.82-4.97); Red Cell Distribution Width 15.1 % (11.5-14.5)
[2018-03-29 06:41] LABS: Alanine Aminotransferase 8 Units/L (7-52); Albumin 2.8 g/dL (3.5-5.7); Albumin/Globulin Ratio 1.3 (1.1-2.2); Alkaline Phosphatase 60 Units/L (34-104); Aspartate Amino Transferase 12 Units/L (13-39); BUN/Creatinine Ratio 39 (6-26); Bilirubin,Total 1.6 mg/dL (0.3-1.0); Blood Urea Nitrogen 19 mg/dL (8-23); Calcium 7.9 mg/dL (8.6-10.3); Carbon Dioxide 26 mEq/L (23-29); Chloride 109 mEq/L (98-107); Globulin 2.2 g/dL (2.4-3.5); Glucose 115 mg/dL (70-105); Osmolality,Calculated 293 (280-300); Potassium 4.1 mEq/L (3.5-5.1); Sodium 140 mEq/L (136-145); eGFR For African Americans > 60 (> 60); eGFR For Non-African Americans > 60 (> 60)
[2018-03-29 06:51] LABS: Troponin I 0.03 ng/mL (< 0.04)
--- NOTE | 2018-03-29 08:10 | Internal Medicine Consult Note ---
Date of Encounter: 03/29/18 Time of Encounter: 08:08 - Assessment and Plan (1) GI bleed Current Visit: Yes Status: Acute Assessment and plan: She has had minor GI bleeding, source is unknown, could be gastritis, ulceration , AVMs. It also may be coming from the recent colonic anastomotic site. Because of recent surgery, her comorbidities, her dementia. Her stability, as well as her elevated INR, I will not pursue endoscopy at this time. From a Coumadin standpoint, I would continue aspirin in a week or 2 from now, I would not give Coumadin any further given her comorbidities. Given her advanced dementia, and her recent diagnosis of a cancer, I strongly recommend a recommendation for DNR care. 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 Qualifiers: Qualified Code(s): C18.9 - Malignant neoplasm of colon, unspecified (3) Pneumonia Current Visit: Yes Status: Acute Qualifiers: Pneumonia type: due to unspecified organism Laterality: left Lung location: lower lobe of lung Qualified Code(s): J18.1 - Lobar pneumonia, unspecified organism (4) Warfarin-induced coagulopathy Current Visit: Yes Status: Resolved Assessment and plan: I would not give Coumadin any further. (5) History of mitral valve replacement with bioprosthetic valve Current Visit: Yes Status: Chronic (6) Hypertension Current Visit: Yes Status: Chronic Qualifiers: Hypertension type: essential hypertension Qualified Code(s): I10 - Essential (primary) hypertension (7) Dementia Current Visit: Yes Status: Acute Qualifiers: Dementia type: Alzheimer's disease Qualified Code(s): G30.0 - Alzheimer's disease with early onset; F02.81 - Dementia in other diseases classified elsewhere with behavioral disturbance Internal Medicine - CN: HPI - Data of Consult Patient: new to practice Consult date: 03/29/18 Requesting Physician: Danielle Carranza MD - Consult Narrative Reason for consult: Melena with hypoprothrombinemia History of present illness: Ms. Galeana is a 87 year old female who presented to the ER yesterday with melena and ease of bruising. I was asked to see her from the emergency room staff, apparently she was at an [facility], receiving Coumadin after having segmental colectomy for cancer last month. There was some ease of bruising in the family had concerns that maybe her Coumadin dose was a little bit high. She proceeded to come into the hospital her INR was over 10, although she was quite stable. Other than the GI bleeding that appeared to be quite mild, and the bruising. There is no evidence of cranial bleeding. She currently is in her bed, very comfortable, answers only yes to all my questions. No distress noted. Past Med Surg Social Fam HX - Past Medical History Medical history: coronary artery disease, CVA, myocardial infarction, TIA, other Additional medical history: bowel obstruction Psychiatric history: no psych history - Past Surgical History Surgical History: colectomy, heart valve replacement, other Additional surgical history: unable to recall complete surgical history - Social History Smoking Status: Never smoker Smokeless Tobacco Status: No Alcohol use: none Drug use: none ROS unobtainable: due to mental status Internal Medicine - CN: Meds Alendronate Sodium 70 mg PO QWEEK 07/31/15 [History] Amlodipine [Norvasc] 10 mg PO DAILY 07/31/15 [History] Citalopram Hydrobromide [Celexa] 10 mg PO DAILY #0 07/31/15 [History] Digoxin [Lanoxin] 0.125 mg PO DAILY 07/31/15 [History] Losartan [Cozaar] 50 mg PO DAILY 07/31/15 [History] Multivitamin [Multi-Day Vitamins] 1 tab PO DAILY 07/31/15 [History] Simvastatin [Zocor] 40 mg PO HS 07/31/15 [History] Warfarin [Coumadin] 2 mg PO 1800 #60 tablet 08/05/15 [Rx] Aspirin 81 mg PO DAILY 02/19/18 [History] Cholecalciferol (D-3) [Vitamin D] 5,000 unit PO DAILY 02/19/18 [History] Donepezil [Aricept] 5 mg PO HS 02/19/18 [History] Metoprolol XL (24 HR) Succ [Toprol Xl] 150 mg PO DAILY 02/19/18 [History] 3 Allergy/AdvReac Type Severity Reaction Status Date / Time No Known Allergies Allergy Verified 02/20/18 11:01 Internal Medicine - CN: Exam - Constitutional Vitals: Temp Pulse Resp BP Pulse Ox 98.2 F 73 16 124/75 91 03/29/18 07:46 03/29/18 07:46 03/29/18 07:46 03/29/18 07:46 03/29/18 07:46 General appearance IM: Present: A&O X 0, pleasant, no acute distress. Absent: answers questions appropriately - Head Head exam: Present: atraumatic - Eye Eye exam: Present: conjuntiva pink, sclera anicteric - Neck Neck exam general surgery: Present: supple, trachea midline - Respiratory Respiratory exam: Present: CTAB. Absent: tachypnea - Cardiovascular Cardiovascular exam IM: Present: +S1, +S2 - GI/Abdominal GI/Abdominal exam IM: Present: normal bowel sounds, soft, no peritoneal signs. Absent: splenomegaly, tenderness - Rectal Rectal exam: Present: deferred - Extremities Exam Additional comments: Note is made of ecchymosis over the lower extremities and the upper extremities. Internal Medicine - CN: Reslt - Labs CBC & Chem 7: 03/29/18 06:10 03/29/18 06:11 Labs: Short CBC 03/28/18 03/29/18 Range/Units 23:30 06:10 WBC 14.0 H (4.3-11.1) K/mcL Hgb 8.6 L D 10.1 L D (11.5-15.4) g/dL Hct 27.5 L 30.3 L (35.3-44.9) % Plt Count 257 (140-400) K/mcL Neutrophils # 9.8 H (1.6-8.9) K/mcL BMP 03/29/18 06:11 Sodium 140 Potassium 4.1 Chloride 109 H Carbon Dioxide 26 BUN 19 Creatinine 0.49 L Glucose 115 H Calcium 7.9 L Cardiac Enzymes 03/28/18 03/29/18 Range/Units 23:30 06:11 Troponin I < 0.03 0.03 (< 0.04) ng/mL Liver Function 03/29/18 Range/Units 06:11 Total Bilirubin 1.6 H (0.3-1.0) mg/dL AST 12 L (13-39) Units/L ALT 8 (7-52) Units/L Alkaline Phosphatase 60 (34-104) Units/L Albumin 2.8 L (3.5-5.7) g/dL - ABG Interpretation ABG results: PT/INR, D-dimer PT 12.5 Seconds (9.4-12.1) H D 03/28/18 23:30 Consult Discharge Plan - Plan Referrals: Juan Fernandez MD [Primary Care Provider] -
[2018-03-29] MEDS: Cholecalciferol (D-3) 1,000 UNIT TABLET PO SCH (09:21)
[2018-03-29] MEDS: amLODIPine 5 MG TABLET PO SCH (09:21)
[2018-03-29] MEDS: Multivit/Ca/Min/Fe/FA 1 TAB TABLET PO SCH (09:21)
[2018-03-29] MEDS: *HR* Digoxin 0.125 MG TABLET PO SCH (09:22)
[2018-03-29] MEDS: Metoprolol XL (24 HR) Succ 50 MG TAB.ER.24H PO SCH (09:22)
[2018-03-29 11:46] LABS: Hematocrit 29.3 % (35.3-44.9); Hemoglobin 9.8 g/dL (11.5-15.4)
--- NOTE | 2018-03-29 15:19 | Internal Med Progress Note ---
Date of Encounter: 03/29/18 Time of Encounter: 11:30 - Assessment and plan (1) GI bleed Current Visit: Yes Status: Acute Assessment and plan: Admitted with melena, slight drop in hemoglobin, supratherapeutic INR. Oncology has been consulted, appreciate recommendations-no colonoscopy at this time due to poor functional status, significant dementia and recent colon surgery for colon cancer. Continue to monitor hemoglobin closely. Around 9-10 at this time. Continue IV PPI. Start clear liquid diet. Mild leukocytosis, possibly related to GI bleed and pneumonia. Qualifiers: GI bleed type/associated pathology: melena Qualified Code(s): K92.1 - Melena (2) Pneumonia Current Visit: Yes Status: Acute Assessment and plan: Chest x-ray and CT abdomen/pelvis shows left basal infiltrate. Continue IV vancomycin and Zosyn. Supportive care and supplemental oxygen. Follow-up blood cultures and de-escalate antibiotics. Qualifiers: Pneumonia type: due to unspecified organism Laterality: left Lung location: lower lobe of lung Qualified Code(s): J18.1 - Lobar pneumonia, unspecified organism (3) Warfarin-induced coagulopathy Current Visit: Yes Status: Resolved Assessment and plan: Patient was noted to have [facility] the [facility] without [facility]R monitoring. INR was noted to be 12.1 at admission, now improved to 1.2 after vitamin K and prothrombin administration. (4) Hypertension Current Visit: Yes Status: Chronic Assessment and plan: Blood pressure well controlled. Continue home medications. 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 Underwent surgery on 02/23/2018. Qualifiers: Colon location: ascending Qualified Code(s): C18.2 - Malignant neoplasm of ascending colon (7) Dementia Current Visit: Yes Status: Chronic Qualifiers: Dementia type: Alzheimer's disease Alzheimer's disease onset: late-onset Dementia behavioral disturbance: without behavioral disturbance Qualified Code (s): G30.1 - Alzheimer's disease with late onset; F02.80 - Dementia in other diseases classified elsewhere without behavioral disturbance (8) Atrial fibrillation Current Visit: Yes Status: Chronic Assessment and plan: Currently rate controlled. Continue telemetry monitoring. Continue beta erika. Hold anticoagulation for now due to melena. Qualifiers: Atrial fibrillation type: chronic Qualified Code(s): I48.2 - Chronic atrial fibrillation - Time Spent With Patient Total time spent is greater than 50% in coordination of care (as documented) at patient's floor/unit and/or counseling patient: - Subjective Interval history: Patient is mostly nonverbal due to underlying dementia, unable to provide history. Only answers yes or no to all questions. Not in distress. Appears slightly pale. - Constitutional Vitals: Temp Pulse Resp BP Pulse Ox 98 F 70 16 122/70 92 03/29/18 12:05 03/29/18 12:05 03/29/18 12:05 03/29/18 12:05 03/29/18 12:05 General appearance: Present: A&O X 0. Absent: answers questions appropriately - Respiratory Respiratory exam: Present: CTAB. Absent: accessory muscle use, rales, rhonchi, wheezes - Cardiovascular Cardiovascular exam: Present: irregular rhythm, +S1, +S2. Absent: diastolic murmur, gallop, rubs, systolic murmur - GI/Abdominal GI/Abdominal exam: Present: normal bowel sounds, soft (midline lower abdominal surgical scar- healing well with underlying scar tissue), no peritoneal signs. Absent: distended, tenderness - Extremities Exam Extremities exam: Present: full ROM, warm, radial pulses palpable and symmetrical. Absent: calf tenderness, cyanotic, pedal edema - Neurological Exam Neurological exam: Present: altered, CN II-XII intact, no focal deficits. Absent: pronater drift, facial droop, speech deficit Internal Medicine: Result - Labs CBC & Chem 7: 03/29/18 11:28 03/29/18 06:11 Labs: Short CBC 03/28/18 03/29/18 03/29/18 Range/Units 23:30 06:10 11:28 WBC 14.0 H (4.3-11.1) K/mcL Hgb 8.6 L D 10.1 L D 9.8 L (11.5-15.4) g/dL Hct 27.5 L 30.3 L 29.3 L (35.3-44.9) % Plt Count 257 (140-400) K/mcL Neutrophils # 9.8 H (1.6-8.9) K/mcL BMP 03/29/18 06:11 Sodium 140 Potassium 4.1 Chloride 109 H Carbon Dioxide 26 BUN 19 Creatinine 0.49 L Glucose 115 H Calcium 7.9 L Cardiac Enzymes 03/28/18 03/29/18 Range/Units 23:30 06:11 Troponin I < 0.03 0.03 (< 0.04) ng/mL Liver Function 03/29/18 Range/Units 06:11 Total Bilirubin 1.6 H (0.3-1.0) mg/dL AST 12 L (13-39) Units/L ALT 8 (7-52) Units/L Alkaline Phosphatase 60 (34-104) Units/L Albumin 2.8 L (3.5-5.7) g/dL - ABG Interpretation ABG results: PT/INR, D-dimer PT 12.5 Seconds (9.4-12.1) H D 03/28/18 23:30 Consult Discharge Plan - Plan Referrals: Juan Fernandez MD [Primary Care Provider] -
[2018-03-29 16:43] LABS: Hematocrit 27.3 % (35.3-44.9); Hemoglobin 9.3 g/dL (11.5-15.4)
[2018-03-29] MEDS ORDERED: Cefepime HCl 2,000 MG in 0.9 % Sodium Chloride Mini Bag 100 ML IVPB ONE (21:50)
[2018-03-30] MEDS: Piperacillin/Tazobactam 3.375 GM in 0.9 % Sodium Chloride Mini Bag 100 ML IVPB SCH ×4 (00:41→23:37)
[2018-03-30] MEDS: Pantoprazole 40 MG VIAL IVP SCH (05:03)
[2018-03-30] MEDS ORDERED: Aminoglycoside Consult 1 EACH MC ONE (09:21)
[2018-03-30] MEDS: Multivit/Ca/Min/Fe/FA 1 TAB TABLET PO SCH (10:06)
[2018-03-30] MEDS: *HR* Digoxin 0.125 MG TABLET PO SCH (10:06)
[2018-03-30] MEDS: Metoprolol XL (24 HR) Succ 50 MG TAB.ER.24H PO SCH (10:06)
[2018-03-30] MEDS: Cholecalciferol (D-3) 1,000 UNIT TABLET PO SCH (10:07)
[2018-03-30] MEDS: amLODIPine 5 MG TABLET PO SCH (10:07)
--- NOTE | 2018-03-30 16:17 | Internal Med Progress Note ---
Date of Encounter: 03/30/18 Time of Encounter: 11:30 - Assessment and plan (1) GI bleed Current Visit: Yes Status: Acute Assessment and plan: Admitted with melena, slight drop in hemoglobin, supratherapeutic INR. Oncology has been consulted, appreciate recommendations-no colonoscopy at this time due to poor functional status, significant dementia and recent colon surgery for colon cancer. Continue to monitor hemoglobin closely. Today's Hb pending, d/w RN; Continue PO PPI. Advance diet to soft diet; Mild leukocytosis, possibly related to GI bleed and pneumonia. Qualifiers: GI bleed type/associated pathology: melena Qualified Code(s): K92.1 - Melena (2) Pneumonia Current Visit: Yes Status: Acute Assessment and plan: Chest x-ray and CT abdomen/pelvis shows left basal infiltrate. Patient is clinically stable; blood cultures were not sent at admission; hold IV vancomycin and continue IV Zosyn. Supportive care and supplemental oxygen. Uses 2L/min intermittently; Qualifiers: Pneumonia type: due to unspecified organism Laterality: left Lung location: lower lobe of lung Qualified Code(s): J18.1 - Lobar pneumonia, unspecified organism (3) Warfarin-induced coagulopathy Current Visit: Yes Status: Resolved (4) Hypertension Current Visit: Yes Status: Chronic Assessment and plan: Blood pressure well controlled. Continue home medications. Qualifiers: Hypertension type: essential hypertension Qualified Code(s): I10 - Essential (primary) hypertension (5) History of mitral valve replacement with bioprosthetic valve Current Visit: Yes Status: Chronic Assessment and plan: stable. 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 Underwent surgery on 02/23/2018. Qualifiers: Colon location: ascending Qualified Code(s): C18.2 - Malignant neoplasm of ascending colon (7) Dementia Current Visit: Yes Status: Chronic Qualifiers: Dementia type: Alzheimer's disease Alzheimer's disease onset: late-onset Dementia behavioral disturbance: without behavioral disturbance Qualified Code (s): G30.1 - Alzheimer's disease with late onset; F02.80 - Dementia in other diseases classified elsewhere without behavioral disturbance (8) Atrial fibrillation Current Visit: Yes Status: Chronic Assessment and plan: Currently rate controlled. Continue telemetry monitoring. Continue beta erika. Resume anticoagulation with close INR monitoring; Qualifiers: Atrial fibrillation type: chronic Qualified Code(s): I48.2 - Chronic atrial fibrillation - Time Spent With Patient Total time spent is greater than 50% in coordination of care (as documented) at patient's floor/unit and/or counseling patient: - Subjective Interval history: Patient is mostly nonverbal due to underlying dementia, unable to provide history. Not in distress. Appears slightly pale. RN trying for IV access; - Constitutional Vitals: Temp Pulse Resp BP Pulse Ox 97.9 F 60 16 136/60 94 03/30/18 15:49 03/30/18 15:49 03/30/18 15:49 03/30/18 15:49 03/30/18 15:49 General appearance: Present: A&O X 1. Absent: answers questions appropriately - Respiratory Respiratory exam: Present: CTAB. Absent: accessory muscle use, rales, rhonchi, wheezes - Cardiovascular Cardiovascular exam: Present: irregular rhythm, +S1, +S2. Absent: diastolic murmur, gallop, rubs, systolic murmur - GI/Abdominal GI/Abdominal exam: Present: normal bowel sounds, soft (midline lower abdominal surgical incision healing well; mild tenderness around the area), no peritoneal signs. Absent: distended, tenderness - Extremities Exam Extremities exam: Present: pedal edema, warm, radial pulses palpable and symmetrical. Absent: calf tenderness, cyanotic Internal Medicine: Result - Labs CBC & Chem 7: 03/29/18 16:27 03/29/18 06:11 Labs: Short CBC 03/29/18 Range/Units 16:27 Hgb 9.3 L (11.5-15.4) g/dL Hct 27.3 L (35.3-44.9) % - ABG Interpretation ABG results: PT/INR, D-dimer PT 12.5 Seconds (9.4-12.1) H D 03/28/18 23:30 Consult Discharge Plan - Plan Referrals: Juan Fernandez MD [Primary Care Provider] -
[2018-03-30 17:04] LABS: Basophils % 0.2 %; Eosinophils # 0.3 K/mcL (0.0-0.6); Eosinophils % 2.3 %; Hematocrit 27.8 % (35.3-44.9); Immature Granulocytes % 0.6 % (0-4); Lymphocytes % 15.5 %; Mean Corpuscular HGB Conc 32.4 g/dL (31.6-35.5); Mean Corpuscular Hemoglobin 31.5 pg (28.0-33.3); Mean Corpuscular Volume 97.2 fL (83.0-100.0); Mean Platelet Volume 10.2 fL (9.4-12.4); Monocytes # 1.8 K/mcL (0.0-1.3); Monocytes % 14.1 %; Neutrophils # 8.5 K/mcL (1.6-8.9); Platelet Count 256 K/mcL (140-400); Red Blood Count 2.86 M/mcL (3.82-4.97); Red Cell Distribution Width 15.6 % (11.5-14.5); Segmented Neutrophils % 67.3 %
[2018-03-30] MEDS ORDERED: Warfarin perPT PO PRN (18:00)
[2018-03-30] MEDS ORDERED: *HR* Warfarin 2 MG TABLET PO ONE (22:15)
[2018-03-31 06:31] LABS: Basophils % 0.2 %; Eosinophils # 0.2 K/mcL (0.0-0.6); Eosinophils % 1.8 %; Hematocrit 28.2 % (35.3-44.9); Hemoglobin 9.1 g/dL (11.5-15.4); Immature Granulocytes % 0.4 % (0-4); Lymphocytes # 2.3 K/mcL (0.6-4.6); Lymphocytes % 18.4 %; Mean Corpuscular HGB Conc 32.3 g/dL (31.6-35.5); Mean Corpuscular Hemoglobin 30.6 pg (28.0-33.3); Mean Corpuscular Volume 94.9 fL (83.0-100.0); Mean Platelet Volume 10.3 fL (9.4-12.4); Monocytes # 1.4 K/mcL (0.0-1.3); Monocytes % 11.2 %; Neutrophils # 8.6 K/mcL (1.6-8.9); Platelet Count 271 K/mcL (140-400); Red Blood Count 2.97 M/mcL (3.82-4.97); Red Cell Distribution Width 15.8 % (11.5-14.5)
[2018-03-31 06:35] LABS: INR 1.6; Prothrombin Time 17.9 Seconds (9.4-12.1)
[2018-03-31] MEDS: Piperacillin/Tazobactam 3.375 GM in 0.9 % Sodium Chloride Mini Bag 100 ML IVPB SCH (10:13)
[2018-03-31] MEDS: Metoprolol XL (24 HR) Succ 50 MG TAB.ER.24H PO SCH (10:14)
[2018-03-31] MEDS: Cholecalciferol (D-3) 1,000 UNIT TABLET PO SCH (10:14)
[2018-03-31] MEDS: *HR* Digoxin 0.125 MG TABLET PO SCH (10:15)
[2018-03-31] MEDS: amLODIPine 5 MG TABLET PO SCH (10:15)
[2018-03-31] MEDS: Multivit/Ca/Min/Fe/FA 1 TAB TABLET PO SCH (10:15)
[2018-03-31] MEDS: levoFLOXacin 500 MG TABLET PO SCH (15:40)
--- NOTE | 2018-03-31 16:46 | Electrocardiograph Report ---
[place] [id number] Test Date: 2018-03-28 Pat Name: Dee Dee Galeana Department: 103 Room: 3A15 Gender: F Frame Opener: EKP : [id number] Requested By: Dejon Peralta Order Number: [id number] Reading MD: Lawrence Murphy Measurements Intervals [place] Rate: 71 P: MT: 0 QRS: -6 QRSD: 84 T: 74 QT: 420 QTc: 443 Interpretive Statements ATRIAL FIBRILLATION WITH ABERRANT CONDUCTION OR VENTRICULAR PREMATURE COMPLEXES Electronically Signed On 03-31-2018 16:44:36 EDT by Lawrence Murphy
[2018-03-31] MEDS ORDERED: *HR* Warfarin 1 MG TABLET PO ONE (18:00)
--- NOTE | 2018-03-31 19:31 | Internal Med Progress Note ---
Date of Encounter: 04/01/18 Time of Encounter: 11:00 - Assessment and plan (1) GI bleed Current Visit: Yes Status: Acute Assessment and plan: Admitted with melena, slight drop in hemoglobin, supratherapeutic INR. Recommendations for no colonoscopy at this time due to poor functional status, significant dementia and recent colon surgery for colon cancer. Continue to monitor hemoglobin closely. 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 Underwent surgery on 02/23/2018. Qualifiers: Colon location: ascending Qualified Code(s): C18.2 - Malignant neoplasm of ascending colon (3) Pneumonia Current Visit: Yes Status: Acute Assessment and plan: Chest x-ray and CT abdomen/pelvis shows left basal infiltrate. P Change IV Zosyn to oral Levaquin today Qualifiers: Pneumonia type: due to unspecified organism Laterality: left Lung location: lower lobe of lung Qualified Code(s): J18.1 - Lobar pneumonia, unspecified organism (4) Hypertension Current Visit: Yes Status: Chronic Assessment and plan: Blood pressure well controlled. Continue home medications. Qualifiers: Hypertension type: essential hypertension Qualified Code(s): I10 - Essential (primary) hypertension (5) Atrial fibrillation Current Visit: Yes Status: Chronic Assessment and plan: Currently rate controlled. Continue telemetry monitoring. Continue beta erika. Resume anticoagulation with close INR monitoring; Qualifiers: Atrial fibrillation type: chronic Qualified Code(s): I48.2 - Chronic atrial fibrillation (6) History of mitral valve replacement with bioprosthetic valve Current Visit: Yes Status: Chronic Assessment and plan: stable. Patient will be resumed on Coumadin with close INR monitoring; (7) Warfarin-induced coagulopathy Current Visit: Yes Status: Resolved Assessment and plan: Patient was noted to have been administered Coumadin at the group home without INR monitoring. INR was noted to be 12.1 at admission but now subtherapeutic after vitamin K and prothrombin administration. Pharmacy to dose Coumadin (8) Dementia Current Visit: Yes Status: Chronic Assessment and plan: Stable Qualifiers: Dementia type: Alzheimer's disease Alzheimer's disease onset: late-onset Dementia behavioral disturbance: without behavioral disturbance Qualified Code (s): G30.1 - Alzheimer's disease with late onset; F02.80 - Dementia in other diseases classified elsewhere without behavioral disturbance - Time Spent With Patient Total time spent is greater than 50% in coordination of care (as documented) at patient's floor/unit and/or counseling patient: - Subjective Interval history: Patient resting comfortably this morning and was nonverbal Patient appeared weak and needed assistance to be held upright - Constitutional Vitals: Temp Pulse Resp BP Pulse Ox 98 F 79 20 145/68 89 03/31/18 16:33 03/31/18 16:33 03/31/18 16:33 03/31/18 16:33 03/31/18 16:33 General appearance: Present: A&O X 1, no acute distress. Absent: answers questions appropriately - Respiratory Respiratory exam: Present: CTAB. Absent: accessory muscle use, rales, rhonchi, wheezes - Cardiovascular Cardiovascular exam: Present: RRR, +S1, +S2. Absent: diastolic murmur, gallop, rubs, systolic murmur - Skin Skin exam: Present: pallor Internal Medicine: Result - Labs CBC & Chem 7: 03/31/18 04:00 03/29/18 06:11 Labs: Short CBC 03/31/18 Range/Units 04:00 WBC 12.7 H (4.3-11.1) K/mcL Hgb 9.1 L (11.5-15.4) g/dL Hct 28.2 L (35.3-44.9) % Plt Count 271 (140-400) K/mcL Neutrophils # 8.6 (1.6-8.9) K/mcL - ABG Interpretation ABG results: PT/INR, D-dimer PT 17.9 Seconds (9.4-12.1) H 03/31/18 04:00 Consult Discharge Plan - Plan Referrals: Juan Fernandez MD [Primary Care Provider] -
[2018-04-01 07:29] LABS: INR 2.4; Prothrombin Time 26.8 Seconds (9.4-12.1)
[2018-04-01] MEDS: Cholecalciferol (D-3) 1,000 UNIT TABLET PO SCH (09:47)
[2018-04-01] MEDS: amLODIPine 5 MG TABLET PO SCH (09:47)
[2018-04-01] MEDS: *HR* Digoxin 0.125 MG TABLET PO SCH (09:52)
[2018-04-01] MEDS: Multivit/Ca/Min/Fe/FA 1 TAB TABLET PO SCH (09:52)
[2018-04-01] MEDS: Metoprolol XL (24 HR) Succ 50 MG TAB.ER.24H PO SCH (09:52)
[2018-04-01] MEDS: levoFLOXacin 500 MG TABLET PO SCH (09:52)
--- NOTE | 2018-04-01 10:04 | Physician Discharge Referral ---
Home Health/Hosp Referral Info Transfer to: Home Health - Diagnosis (1) GI bleed Priority: Primary Status: Acute (2) Colon malignancy Priority: Primary Status: Chronic (3) Pneumonia Priority: Primary Status: Acute (4) Hypertension Priority: Secondary Status: Chronic (5) Atrial fibrillation Priority: Secondary Status: Chronic (6) History of mitral valve replacement with bioprosthetic valve Priority: Primary Status: Chronic (7) Warfarin-induced coagulopathy Priority: Primary Status: Resolved (8) Dementia Priority: Secondary Status: Chronic - Respiratory Orders Smoking Cessation: Smoking cessation has been advised. For more information, call the [place] Tobacco Quit Line at 3-497-TMLLNOW. - Services Needed Following services are medically necessary services: Nursing, Home Health Aide ( Patient will need daily H&H for one week to monitor acute blood loss anemia. In addition, patient will also need PT/INR every 3 days for 2 weeks due to supratherapeutic and then subtherapeutic INR) - Transfer Medications Home Medications: Alendronate Sodium [Fosamax] 70 mg PO QWEEK 03/30/18 [History] Amlodipine Besylate 10 mg PO DAILY 03/30/18 [History] Citalopram Hydrobromide [Citalopram HBr] 10 mg PO DAILY 03/30/18 [History] Digoxin [Lanoxin] 0.125 mg PO DAILY 03/30/18 [History] Donepezil [Aricept] 5 mg PO HS 03/30/18 [History] Losartan Potassium [Cozaar] 50 mg PO DAILY 03/30/18 [History] Metoprolol Succinate [Toprol Xl] 150 mg PO DAILY 03/30/18 [History] Simvastatin [Zocor] 40 mg PO DAILY 03/30/18 [History] Warfarin [Coumadin] 1 mg PO DAILY 03/30/18 [History] Allergies/Adverse Reactions: 3 Allergy/AdvReac Type Severity Reaction Status Date / Time No Known Allergies Allergy Verified 02/20/18 11:01 Certification: Further, I certify that my clinical findings support that this patient is homebound (i.e. absences from home require considerable and taxing effort and are for medical reasons or denominational services or infrequently or short duration when for other reasons) because: Homebound Reason: Patient requires assistance of a person or device to safely leave home Attestation: My signature below is to certify that this patient is under my care and that I, or nurse practitioner, or a physician's respiratory therapy assistant working with me, has a face-to -face encounter with this patient.
--- NOTE | 2018-04-01 11:00 | Discharge Summary ---
Orders not resulted at time of discharge: Pending orders 03/28/18 22:20 Urinalysis Reflex Cult & Micro [URIN] Stat 04/01/18 08:14 Basic Metabolic Panel Routine Complete Blood Count [HEME] Routine 04/02/18 04:00 INR/PT [Prothrombin Time INR] [COAG] AM 0400 04/03/18 04:00 INR/PT [Prothrombin Time INR] [COAG] AM 0400 Date of Encounter: 04/01/18 - Discharge Diagnosis (1) GI bleed Status: Acute Qualifiers: GI bleed type/associated pathology: melena Qualified Code(s): K92.1 - Melena (2) Colon malignancy Status: Chronic Qualifiers: Colon location: ascending Qualified Code(s): C18.2 - Malignant neoplasm of ascending colon (3) Pneumonia Status: Acute Qualifiers: Pneumonia type: due to unspecified organism Laterality: left Lung location: lower lobe of lung Qualified Code(s): J18.1 - Lobar pneumonia, unspecified organism (4) Hypertension Status: Chronic Qualifiers: Hypertension type: essential hypertension Qualified Code(s): I10 - Essential (primary) hypertension (5) Atrial fibrillation Status: Chronic Qualifiers: Atrial fibrillation type: chronic Qualified Code(s): I48.2 - Chronic atrial fibrillation (6) History of mitral valve replacement with bioprosthetic valve Status: Chronic (7) Warfarin-induced coagulopathy Status: Resolved (8) Dementia Status: Chronic Qualifiers: Dementia type: Alzheimer's disease Alzheimer's disease onset: late-onset Dementia behavioral disturbance: without behavioral disturbance Qualified Code (s): G30.1 - Alzheimer's disease with late onset; F02.80 - Dementia in other diseases classified elsewhere without behavioral disturbance Hospital course: Ms. Galeana is a 87 year old female - Time Spent with Patient Total time spent providing and/or coordinating discharge services: Less than 30 minutes - Discharge Medications Prescriptions: levoFLOXacin [Levaquin] 500 mg PO DAILY 2 Days #2 tablet Home Medications: Alendronate Sodium [Fosamax] 70 mg PO QWEEK 03/30/18 [History] Amlodipine Besylate 10 mg PO DAILY 03/30/18 [History] Citalopram Hydrobromide [Citalopram HBr] 10 mg PO DAILY 03/30/18 [History] Digoxin [Lanoxin] 0.125 mg PO DAILY 03/30/18 [History] Donepezil [Aricept] 5 mg PO HS 03/30/18 [History] Losartan Potassium [Cozaar] 50 mg PO DAILY 03/30/18 [History] Metoprolol Succinate [Toprol Xl] 150 mg PO DAILY 03/30/18 [History] Simvastatin [Zocor] 40 mg PO DAILY 03/30/18 [History] Warfarin [Coumadin] 1 mg PO DAILY 03/30/18 [History] levoFLOXacin [Levaquin] 500 mg PO DAILY 2 Days #2 tablet 04/01/18 [Rx] Allergies/Adverse Reactions: 3 Allergy/AdvReac Type Severity Reaction Status Date / Time No Known Allergies Allergy Verified 02/20/18 11:01 Date of admission: 03/28/18 22:15 Primary care physician: Juna Fernandez MD Consults: 03/28/18 22:56 Consult to Physician [CONS] Routine Consulting Provider: Diego Sanchez Reason for Consult: scope Call Completed: Yes 03/30/18 14:35 Consult to Invasive Line Access Team [CONS] Routine Reason for Consult: limited vascular access Line Type: EPIV - Constitutional Vitals: Temp Pulse Resp BP Pulse Ox 97.8 F 71 18 149/76 97 04/01/18 10:41 04/01/18 10:41 04/01/18 10:41 04/01/18 10:41 04/01/18 10:41 General appearance: Present: A&O X 1, no acute distress. Absent: answers questions appropriately - Patient Status Disposition: Home Health Service Condition: Fair - Discharge Instructions Follow Up With: Juan Fernandez MD [Primary Care Provider] -
--- NOTE | 2018-04-01 17:30 | General Surgery Consult Note ---
Date of Encounter: 04/01/18 Time of Encounter: 17:15 History of Present Illness Consult date: 04/01/18 Requesting physician: Daniel Rosa History of present illness: Called to see this 87-year-old female for post op follow up and discus discharge plans with family. The patient is familiar to me based on a prior encounter, 02/19/18, or an acute obstructing mass ascending colon. The patient ultimately underwent an exploratory celiotomy, extended lysis of adhesions, and right colectomy with stapled enterocolonic anastomosis. 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 The patient actually did quite well postop despite being elderly, frail with a significant medical history of CAD with prior IL; status post CABG and heart valve replacement with a biomechanical prosthesis; chronic atrial fibrillation for which the patient has been anticoagulated; history of a fascia related to his CVA approximate 4-5 years ago and several TIAs since that stroke; history of hypertension, osteopenia/osteoporosis; and depression. This hospitalization, initiated 03/28/18, after patient was found to be supratherapeutic with an INR of 12.1. The anticoagulation has been successfully reversed. The current INR is 2.4. It should be noted that at the time of her presentation in January 2018 with the acute obstructing mass ascending colon the patient was also supratherapeutic, requiring reversal of her anticoagulation before surgery could proceed. Surgical consultation was placed today due to the patient's complaint of right- sided abdominal pain. CT completed 03/28/18, was reviewed with [facility]. Findings include stable left pleural effusion; stable, small, hiatal hernia; stable wall thickening inflammatory changes involving the gastric antrum ( similar to previous exam; postsurgical changes consistent with right hemicolectomy but no evidence of bowel obstruction; improved/reduced fluid collection anterior abdominal wall just to the right of midline now measuring 3.2 x 1.9 cm (previously 4.0 x 5.0). It appears to be this fluid collection in the anterior abdominal wall that is causing some discomfort to the patient when she is examined. My examination the patient demonstrated a frail, elderly, patient was unable to provide significant formation about herself with no significant changes in her pulmonary status, cardiac status and minimal discomfort to the right of midline anterior abdominal wall. No intra-abdominal findings. Discharge planning is reasonable at this point as the reason for her admission this hospitalization was supratherapeutic anticoagulation related to Coumadin. Questions that need to be addressed include continued anticoagulation in this patient who has demonstrated on at least 2 separate occasions supra therapeutic anticoagulation with obvious increased risk of hemorrhage. I attempted to reach her son by telephone but was unable to do so. The patient is surgically stable requiring continued medical management of her multiple medical comorbidities. It must be determined whether the risks of anticoagulation outweigh the benefits. Past Med Surg Social Fam HX - Past Medical History Medical history: coronary artery disease, CVA, myocardial infarction, TIA, other Additional medical history: bowel obstruction Psychiatric history: no psych history - Past Surgical History Surgical History: colectomy, heart valve replacement, other Additional surgical history: unable to recall complete surgical history - Social History Smoking Status: Never smoker Smokeless Tobacco Status: No Alcohol use: none Drug use: none Medications and Allergies Alendronate Sodium [Fosamax] 70 mg PO QWEEK 03/30/18 [History] Amlodipine Besylate 10 mg PO DAILY 03/30/18 [History] Citalopram Hydrobromide [Citalopram HBr] 10 mg PO DAILY 03/30/18 [History] Digoxin [Lanoxin] 0.125 mg PO DAILY 03/30/18 [History] Donepezil [Aricept] 5 mg PO HS 03/30/18 [History] Losartan Potassium [Cozaar] 50 mg PO DAILY 03/30/18 [History] Metoprolol Succinate [Toprol Xl] 150 mg PO DAILY 03/30/18 [History] Simvastatin [Zocor] 40 mg PO DAILY 03/30/18 [History] Warfarin [Coumadin] 1 mg PO DAILY 03/30/18 [History] levoFLOXacin [Levaquin] 500 mg PO DAILY 2 Days #2 tablet 04/01/18 [Rx] 3 Allergy/AdvReac Type Severity Reaction Status Date / Time No Known Allergies Allergy Verified 02/20/18 11:01 Review of Systems All systems PM: The remainder of the systems were reviewed and are negative General Surgery Exam Initial Vital Signs Temp Pulse Resp BP Pulse Ox 98.5 F 40 20 153/68 93 03/28/18 17:26 03/28/18 17:26 03/28/18 17:26 03/28/18 17:26 03/28/18 17:26 Exam Initial Vital Signs Temp Pulse Resp BP Pulse Ox 98.5 F 40 20 153/68 93 03/28/18 17:26 03/28/18 17:26 03/28/18 17:26 03/28/18 17:26 03/28/18 17:26 Results - Labs 03/31/18 04:00 03/29/18 06:11 Abnormal lab results WBC 12.7 K/mcL (4.3-11.1) H 03/31/18 04:00 RBC 2.97 M/mcL (3.82-4.97) L 03/31/18 04:00 Hgb 9.1 g/dL (11.5-15.4) L 03/31/18 04:00 Hct 28.2 % (35.3-44.9) L 03/31/18 04:00 RDW 15.8 % (11.5-14.5) H 03/31/18 04:00 Monocytes # 1.4 K/mcL (0.0-1.3) H 03/31/18 04:00 Nucleated RBCs/100 WBC 0.1 /100 WBC (0) H 03/29/18 06:10 PT 26.8 Seconds (9.4-12.1) H 04/01/18 06:58 Chloride 109 mEq/L (98-107) H 03/29/18 06:11 Creatinine 0.49 mg/dL (0.60-1.20) L 03/29/18 06:11 BUN/Creatinine Ratio 39 (6-26) H 03/29/18 06:11 Glucose 115 mg/dL (70-105) H 03/29/18 06:11 POC Glucose 239 mg/dL (70-99) H 03/29/18 19:32 Calcium 7.9 mg/dL (8.6-10.3) L 03/29/18 06:11 Total Bilirubin 1.6 mg/dL (0.3-1.0) H 03/29/18 06:11 AST 12 Units/L (13-39) L 03/29/18 06:11 B-Natriuretic Peptide 103 pg/mL (Less than 100) H 03/28/18 22:16 Serum Total Protein 5.0 g/dL (6.4-8.9) L 03/29/18 06:11 Albumin 2.8 g/dL (3.5-5.7) L 03/29/18 06:11 Globulin 2.2 g/dL (2.4-3.5) L 03/29/18 06:11 Vancomycin Trough 12 mcg/mL (5-10) H 03/30/18 12:37 All other labs normal. Consult Discharge Plan - Plan Referrals: Juan Fernandez MD [Primary Care Provider] - 04/08/18 10:15 am Prescriptions: levoFLOXacin [Levaquin] 500 mg PO DAILY 2 Days #2 tablet
--- NOTE | 2018-04-01 18:12 | Internal Med Progress Note ---
Date of Encounter: 04/01/18 Time of Encounter: 11:00 - Assessment and plan (1) GI bleed Current Visit: Yes Status: Acute Assessment and plan: Admitted with melena, slight drop in hemoglobin, supratherapeutic INR. Recommendations for no colonoscopy at this time due to poor functional status, significant dementia and recent colon surgery for colon cancer. Continue to monitor hemoglobin closely. 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 Underwent surgery on 02/23/2018. Qualifiers: Colon location: ascending Qualified Code(s): C18.2 - Malignant neoplasm of ascending colon (3) Pneumonia Current Visit: Yes Status: Acute Assessment and plan: Chest x-ray and CT abdomen/pelvis shows left basal infiltrate. Patient has completed a 5 day course of antibiotic therapy for pneumonia Qualifiers: Pneumonia type: due to unspecified organism Laterality: left Lung location: lower lobe of lung Qualified Code(s): J18.1 - Lobar pneumonia, unspecified organism (4) Hypertension Current Visit: Yes Status: Chronic Assessment and plan: Blood pressure well controlled. Continue home medications. Qualifiers: Hypertension type: essential hypertension Qualified Code(s): I10 - Essential (primary) hypertension (5) Atrial fibrillation Current Visit: Yes Status: Chronic Assessment and plan: Currently rate controlled. Continue telemetry monitoring. Continue beta erika. Resume anticoagulation with close INR monitoring; Qualifiers: Atrial fibrillation type: chronic Qualified Code(s): I48.2 - Chronic atrial fibrillation (6) History of mitral valve replacement with bioprosthetic valve Current Visit: Yes Status: Chronic Assessment and plan: stable. Patient will be resumed on Coumadin with close INR monitoring; (7) Warfarin-induced coagulopathy Current Visit: Yes Status: Resolved Assessment and plan: Patient was noted to have been administered Coumadin at the detention without INR monitoring. INR was noted to be 12.1 at admission but now subtherapeutic after vitamin K and prothrombin administration. Pharmacy to dose Coumadin Will need to have a final discussion on 04/02/18 with family about risks and benefits for Coumadin therapy given the above concerns for GI bleed and patient' s fall risk (8) Dementia Current Visit: Yes Status: Chronic Assessment and plan: Stable Qualifiers: Dementia type: Alzheimer's disease Alzheimer's disease onset: late-onset Dementia behavioral disturbance: without behavioral disturbance Qualified Code (s): G30.1 - Alzheimer's disease with late onset; F02.80 - Dementia in other diseases classified elsewhere without behavioral disturbance - Time Spent With Patient Total time spent is greater than 50% in coordination of care (as documented) at patient's floor/unit and/or counseling patient: - Subjective Interval history: Patient continues to appear weak on exam and not able to help herself such as sitting up in bed or to be available to get out of bed by herself Physical therapy has recommended care home facility for placement but family insist on taking her back to independent living facility Showed was planned for discharge this afternoon but was evaluated by surgery; general surgery who was consulted not able to reach family Will hold off for discharge until 04/02/18 to discuss with family again risk and benefits of continued anticoagulation therapy - Constitutional Vitals: Temp Pulse Resp BP Pulse Ox 98.1 F 80 26 146/73 96 04/01/18 14:57 04/01/18 14:57 04/01/18 14:57 04/01/18 14:57 04/01/18 14:57 General appearance: Present: A&O X 1, no acute distress. Absent: answers questions appropriately - Respiratory Respiratory exam: Present: CTAB. Absent: accessory muscle use, rales, rhonchi, wheezes - Cardiovascular Cardiovascular exam: Present: RRR, +S1, +S2. Absent: diastolic murmur, gallop, rubs, systolic murmur Internal Medicine: Result - Labs CBC & Chem 7: 03/31/18 04:00 03/29/18 06:11 - ABG Interpretation ABG results: PT/INR, D-dimer PT 26.8 Seconds (9.4-12.1) H 04/01/18 06:58 Consult Discharge Plan - Plan Referrals: Juan Fernandez MD [Primary Care Provider] - 04/08/18 10:15 am Prescriptions: levoFLOXacin [Levaquin] 500 mg PO DAILY 2 Days #2 tablet
[2018-04-02 07:28] LABS: INR 2.6; Prothrombin Time 28.5 Seconds (9.4-12.1)
[2018-04-02] MEDS: amLODIPine 5 MG TABLET PO SCH (08:56)
[2018-04-02] MEDS: Metoprolol XL (24 HR) Succ 50 MG TAB.ER.24H PO SCH (08:56)
[2018-04-02] MEDS: Cholecalciferol (D-3) 1,000 UNIT TABLET PO SCH (08:56)
[2018-04-02] MEDS: Multivit/Ca/Min/Fe/FA 1 TAB TABLET PO SCH (08:57)
[2018-04-02] MEDS: *HR* Digoxin 0.125 MG TABLET PO SCH (08:58)
[2018-04-02 10:24] VITALS: BP 135/61
--- NOTE | 2018-04-02 12:27 | Discharge Summary ---
- NOTES TO OUTPATIENT PROVIDER Notes to Outpatient Provider: Patient to have INR drawn every third day for 2 weeks and to have hemoglobin monitored daily for 1 week; results to be sent to primary care provider Orders not resulted at time of discharge: Pending orders 04/01/18 08:14 Basic Metabolic Panel Routine Complete Blood Count [HEME] Routine 04/03/18 04:00 INR/PT [Prothrombin Time INR] [COAG] AM 0400 Date of Encounter: 04/02/18 Time of Encounter: 11:00 - Discharge Diagnosis (1) GI bleed Priority: Primary Status: Acute Qualifiers: GI bleed type/associated pathology: melena Qualified Code(s): K92.1 - Melena (2) Colon malignancy Priority: Secondary Status: Chronic Qualifiers: Colon location: ascending Qualified Code(s): C18.2 - Malignant neoplasm of ascending colon (3) Pneumonia Priority: Secondary Status: Acute Qualifiers: Pneumonia type: due to unspecified organism Laterality: left Lung location: lower lobe of lung Qualified Code(s): J18.1 - Lobar pneumonia, unspecified organism (4) Hypertension Priority: Secondary Status: Chronic Qualifiers: Hypertension type: essential hypertension Qualified Code(s): I10 - Essential (primary) hypertension (5) Atrial fibrillation Priority: Secondary Status: Chronic Qualifiers: Atrial fibrillation type: chronic Qualified Code(s): I48.2 - Chronic atrial fibrillation (6) History of mitral valve replacement with bioprosthetic valve Priority: Secondary Status: Chronic (7) Warfarin-induced coagulopathy Priority: Secondary Status: Resolved (8) Dementia Priority: Secondary Status: Chronic Qualifiers: Dementia type: Alzheimer's disease Alzheimer's disease onset: late-onset Dementia behavioral disturbance: without behavioral disturbance Qualified Code (s): G30.1 - Alzheimer's disease with late onset; F02.80 - Dementia in other diseases classified elsewhere without behavioral disturbance Hospital course: Patient is an 87-year-old female with past medical history significant for 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 Patient was transferred to nursing facility after [facility]. During patients hospital stay she was reported to have melenic stools and found to have acute anemia. Dr. River was consulted for GI evaluation and determined that patient should not go any further endoscopic evaluation due to comorbidities and poor functional status. Patients hemoglobin remained stable during hospital stay and her INR was reversed. Risk and benefits were discussed with family with recommendations to discontinue Coumadin due to possible GI bleed in addition to fall risks and patients poor functional status. Family wishes patient to continue on Coumadin in spite of risk. Recommendations also for patient to be discharged to extended care facility due to poor functional status and fall risk but family insisted on taking patient back to independent living. Primary care provider for monitoring of anemia and INR or anticoagulation. - Time Spent with Patient Total time spent providing and/or coordinating discharge services: Less than 30 minutes - Discharge Medications Prescriptions: levoFLOXacin [Levaquin] 500 mg PO DAILY 2 Days #2 tablet Home Medications: Alendronate Sodium [Fosamax] 70 mg PO QWEEK 03/30/18 [History] Amlodipine Besylate 10 mg PO DAILY 03/30/18 [History] Citalopram Hydrobromide [Citalopram HBr] 10 mg PO DAILY 03/30/18 [History] Digoxin [Lanoxin] 0.125 mg PO DAILY 03/30/18 [History] Donepezil [Aricept] 5 mg PO HS 03/30/18 [History] Losartan Potassium [Cozaar] 50 mg PO DAILY 03/30/18 [History] Metoprolol Succinate [Toprol Xl] 150 mg PO DAILY 03/30/18 [History] Simvastatin [Zocor] 40 mg PO DAILY 03/30/18 [History] Warfarin [Coumadin] 1 mg PO DAILY 03/30/18 [History] levoFLOXacin [Levaquin] 500 mg PO DAILY 2 Days #2 tablet 04/01/18 [Rx] Allergies/Adverse Reactions: 3 Allergy/AdvReac Type Severity Reaction Status Date / Time No Known Allergies Allergy Verified 02/20/18 11:01 Date of admission: 03/28/18 22:15 Primary care physician: Juan Fernandez MD Consults: 03/28/18 22:56 Consult to Physician [CONS] Routine Consulting Provider: Diego Sanchez Reason for Consult: scope Call Completed: Yes 03/30/18 14:35 Consult to Invasive Line Access Team [CONS] Routine Reason for Consult: limited vascular access Line Type: EPIV 04/01/18 16:02 Consult to Surgery [CONS] Routine Consulting Provider: Surgery Kenzie Mendieta Reason for Consult: Patient known to service Time Notified: 16:00 Call Completed: Yes - Constitutional Vitals: Temp Pulse Resp BP Pulse Ox 97.8 F 66 18 135/61 96 04/02/18 10:23 04/02/18 10:23 04/02/18 10:23 04/02/18 10:23 04/02/18 10:23 General appearance: Present: A&O X 1, no acute distress. Absent: answers questions appropriately - Cardiovascular Cardiovascular exam: Present: RRR, +S1, +S2. Absent: diastolic murmur, gallop, rubs, systolic murmur - Patient Status Disposition: Home Health Service Condition: Fair - Discharge Instructions Follow Up With: Juan Fernandez MD [Primary Care Provider] - 04/08/18 10:15 am
[2018-04-02] MEDS ORDERED: *HR* Warfarin 1 MG TABLET PO ONE (18:00)
--- NOTE | 2018-04-02 18:48 | Event Note ---
Date of Encounter: 04/02/18 Time of Encounter: 13:30 This is a delayed note. I was able to speak to the patient's son prior to the patient's discharge. The patient was apparently being discharged home with 24 hour nursing care. Warfarin anticoagulation would be continued. I spoke briefly to the son regarding the risk of continued anticoagulation as patient has presented twice to the hospital with supratherapeutic anticoagulation levels. Due to a history of atrial fibrillation and prior stroke, the patient remains at risk for a recurrent stroke, however, the risk of supratherapeutic anticoagulation and hemorrhage may outweigh the benefits of continued anticoagulation. I encouraged the patient's son to discuss this with the patient's primary care provider in the near future.
== END 2018-04-02 14:12 | disposition home health service (06) | DRG 377 ==
LOC: EMEROO 17:23 → 3ANU 17:23 → SUATTDRO 22:15 → 3ANU 23:08
PROVIDERS: ADMIT Internal Medicine; ATTEND Hospitalist